=== PATIENT | male | born 1945 | race Caucasian/White ===

== ENCOUNTER 2018-12-11 16:10 | Emergency (ER) | payer MEDICARE, OTHER ==
[~2018-12-11] VITALS: Ht 188 cm; Wt 104.3 kg
[2018-12-11] MEDS ORDERED: NS IV 1000 ML 1,000 ML IV SCH (16:45)
--- NOTE | 2018-12-11 16:50 | ED Respiratory ---
General Chief Complaint: Respiratory Problems Stated Complaint: PAINFUL BREATHING,SOB Source: patient Exam Limitations: no limitations (DEWAYNE TOSCANO MD) History of Present Illness Date Seen by Provider: December 11, 2018 Time Seen by Provider: 16:44 Initial Comments This 73-year-old white male presents with a complaint of left upper quadrant abdominal pain with secondary painful inspiration. The patient has had the pain in a progressive fashion for the past several days. Patient denies associated fever, chills, change in his chronic congestion and cough, nausea, vomiting, diarrhea, dysuria, frequency, or flank pain. The patient describes the pain as sharp in nature and 9/10 in severity. It is made minimally worse with movement. Significant past medical history includes a heart transplant 15 years ago in [place]. The patient is followed by his primary care physician in the [place], [place]. (DEWAYNE TOSCANO MD) Allergies and Home Medications Allergies Uncoded Allergies: PENICILLIN (Adverse Reaction, Unknown, 12/11/18) SULFA (Adverse Reaction, Unknown, 12/11/18) Patient Home Medication List Home Medication List Reviewed: Yes (DEWAYNE TOSCANO MD) Review of Systems Review of Systems Constitutional: No chills, No fever, No weakness EENTM: no symptoms reported; No blurred vision Respiratory: see HPI; No hemoptysis; short of breath Cardiovascular: No chest pain, No palpitations Gastrointestinal: abdominal pain (LUQ); No constipation, No diarrhea, No nausea, No vomiting Genitourinary: No dysuria, No frequency Musculoskeletal: No back pain Skin: No change in color, No rash Psychiatric/Neurological: No Symptoms Reported Hematologic/Lymphatic: No Symptoms Reported Immunological/Allergic: no symptoms reported (DEWAYNE TOSCANO MD) Past Odbdgay-Wmxemj-Dsnohn Hx Past Med/Social Hx: Reviewed Nursing Past Med/Soc Hx (DEWAYNE TOSCANO MD) Physical Exam Vital Signs - First Documented 12/11/18 17:04 Temp 99.2 Pulse 88 Resp 18 B/P (MAP) 143/81 (101) Pulse Ox 94 O2 Delivery Room Air (VIRGIE SOSA MD) Capillary Refill : (DEWAYNE TOSCANO MD) Height: '" Weight: lbs. oz. kg; BMI Method: General Appearance: WD/WN, mild distress Eyes: Bilateral Eye Normal Inspection HEENT: normal ENT inspection Neck: full range of motion, supple Respiratory: chest non-tender, lungs clear, normal breath sounds, no respiratory distress Cardiovascular: regular rate, rhythm, no murmur Gastrointestinal: normal bowel sounds; No rebound; tenderness (mild in the left upper quadrant) Extremities: normal range of motion, normal inspection Neurologic/Psychiatric: no motor/sensory deficits, alert, normal mood/affect, oriented x 3 Skin: normal color, warm/dry; No rash (DEWAYNE TOSCNAO MD) Progress/Results/Core Measures Suspected Sepsis SIRS Temperature: Pulse: Respiratory Rate: Blood Pressure / Mean: (DEWAYNE TOSCANO MD) Results/Orders Lab Results Laboratory Tests Test 12/11/18 16:34 12/11/18 20:05 Range/Units White Blood Count 13.3 H 4.3-11.0 10^3/uL Red Blood Count 4.98 4.35-5.85 10^6/uL Hemoglobin 14.4 11.5-16.0 G/DL Hematocrit 45 35-52 % Mean Corpuscular Volume 90 80-99 FL Mean Corpuscular Hemoglobin 29 25-34 PG Mean Corpuscular Hemoglobin Concent 32 32-36 G/DL Red Cell Distribution Width 14.2 10.0-14.5 % Platelet Count 223 130-400 10^3/uL Mean Platelet Volume 9.5 7.4-10.4 FL Neutrophils (%) (Auto) 82 H 42-75 % Lymphocytes (%) (Auto) 6 L 12-44 % Monocytes (%) (Auto) 10 0-12 % Eosinophils (%) (Auto) 1 0-10 % Basophils (%) (Auto) 0 0-10 % Neutrophils # (Auto) 10.9 H 1.8-7.8 X 10^3 Lymphocytes # (Auto) 0.8 L 1.0-4.0 X 10^3 Monocytes # (Auto) 1.3 H 0.0-1.0 X 10^3 Eosinophils # (Auto) 0.2 0.0-0.3 10^3/uL Basophils # (Auto) 0.0 0.0-0.1 10^3/uL Neutrophils % (Manual) 82 % Lymphocytes % (Manual) 3 % Monocytes % (Manual) 8 % Eosinophils % (Manual) 3 % Basophils % (Manual) 1 % Band Neutrophils 3 % Blood Morphology Comment NORMAL Erythrocyte Sedimentation Rate 11 0-30 MM/HR D-Dimer 3.12 H 0.00-0.49 UG/ML Sodium Level 139 135-145 MMOL/L Potassium Level 3.8 3.6-5.0 MMOL/L Chloride Level 103 98-107 MMOL/L Carbon Dioxide Level 21 21-32 MMOL/L Anion Gap 15 H 5-14 MMOL/L Blood Urea Nitrogen 15 7-18 MG/DL Creatinine 1.29 0.60-1.30 MG/DL Estimat Glomerular Filtration Rate 41 BUN/Creatinine Ratio 12 Glucose Level 122 H 70-105 MG/DL Calcium Level 9.5 8.5-10.1 MG/DL Corrected Calcium 9.3 8.5-10.1 MG/DL Total Bilirubin 0.9 0.1-1.0 MG/DL Aspartate Amino Transf (AST/SGOT) 33 5-34 U/L Alanine Aminotransferase (ALT/SGPT) 6 0-55 U/L Alkaline Phosphatase 64 40-136 U/L Troponin T 37 H <=10 NG/L Total Protein 7.6 6.4-8.2 GM/DL Albumin 4.3 3.2-4.5 GM/DL Lipase 38 8-78 U/L Urine Color YELLOW Urine Clarity CLEAR Urine pH 6.5 5-9 Urine Specific [place] <1.005 1.016-1.022 Urine Protein TRACE NEGATIVE Urine Glucose (UA) NEGATIVE NEGATIVE Urine Ketones NEGATIVE NEGATIVE Urine Nitrite NEGATIVE NEGATIVE Urine Bilirubin NEGATIVE NEGATIVE Urine Urobilinogen 0.2 NORMAL MG/DL Urine Leukocyte Esterase NEGATIVE NEGATIVE Urine RBC (Auto) TRACE H NEGATIVE Urine RBC NONE /HPF Urine WBC 10-25 H /HPF Urine Squamous Epithelial Cells 0-2 /HPF Urine Crystals NONE /LPF Urine Bacteria FEW H /HPF Urine Casts NONE /LPF Urine Mucus NEGATIVE /LPF Urine Culture Indicated YES (VIRGIE SOSA MD) My Orders Orders - VIRGIE SOSA MD Ct Angio Chest W (12/11/18 19:15) Ed Iv/Invasive Line Start (12/11/18 19:29) Ns Iv 500 Ml (Sodium Chloride 0.9%) (12/11/18 19:29) (VIRGIE SOSA MD) Medications Given in ED Current Medications Medications Dose Ordered Sig/Mac Route Start Time Stop Time Status Last Admin Dose Admin Iohexol 100 ml ONCE ONCE IV 12/11/18 18:15 12/11/18 18:16 DC 12/11/18 19:48 75 ML Sodium Chloride 10 ml NEEDED PRN IV 12/11/18 18:15 12/11/18 19:48 10 ML Sodium Chloride 100 ml ONCE ONCE IV 12/11/18 18:15 12/11/18 18:16 DC 12/11/18 19:48 80 ML Sodium Chloride 500 ml @ 0 mls/hr Q0M ONCE IV 12/11/18 19:29 12/11/18 19:30 DC 12/11/18 19:35 0 MLS/HR (VIRGIE SOSA MD) Vital Signs/I&O 12/11/18 17:04 Temp 99.2 Pulse 88 Resp 18 B/P (MAP) 143/81 (101) Pulse Ox 94 O2 Delivery Room Air (VIRGIE SOSA MD) Vital Signs/I&O Capillary Refill : (DEWAYNE TOSCANO MD) Progress Note : Progress Note 1819: Report received from Dr. Toscano regarding current patient status. There are concerns for pulmonary embolism given elevated d-dimer. He has CT angiogram ordered. That is pending. 1834. Patient is quite agitated and states he does not want to stay. I did discuss with him at length my concerns regarding embolism which he states he didn't care about. I asked him about anything that we could do to assist him so that he would stay to receive the evaluation that we believe is indicated and he states he does not know about anything he does not care and just wants to go home. He was instructed return for any concerns. I did talk with him about my concerns that this could be life threatening her life ending problem and he states that he did not care. Patient left AGAINST MEDICAL ADVICE. 1899: Patient had apparently gone out to his car and thought about it and then ultimately walked back in and states that he actually would like to continue with his evaluation. We will go ahead and get CT angiogram as I do believe this is definitely indicated. Chart was never closed out so we will continue on this visit. Monitor patient. 2041: CT results noted and there is a possible clot in the left atrium. Patient may be on Plavix and is on aspirin but is not on blood thinner otherwise. I have paged Dr. Laughlin. Patient does see his cardiology group in [place] in a couple of weeks for recheck of his heart and states that he gets ultrasounds during that time. 2147: I have discussed the case with Dr. Laughlin as well as the cardiac transplant team at the [facility] in [place], [place]. In speaking with the [facility], I spoke with Dr. Yates. He is hasn't had to initiate anticoagulation based on CT scan of a transplanted heart as there is typically redundant tissue that is part of the procedure and CT is not very effective and feeling this. He would prefer EDDIE. We cannot get that here. I have discussed the case with a local detention attendant and he would also be challenging to do locally. Patient does not want to transfer and does not want to stay. He believes that he can follow-up with his cardiology group in [facility] pretty quickly. In discussing with [facility] detention attendant, they are not recommending I anticoagulation at this point and are recommending outpatient EDDIE. I have instructed the patient on this. He will continue his Plavix and aspirin as well as his other prescribed medications. Patient will call [facility] in the morning for rapid turnaround appointment so that he can keep that in that system which is what he prefers. At this point patient to be discharged. Discharged home with return precautions. Patient verbalize all discharge instructions and agreement with plan. (VIRGIE SOSA MD) Diagnostic Imaging Diagonstic Imaging: CT Plain Films/CT/US/NM/MRI: abdomen, pelvis Comments [facility]. [place], [place] NAME: EMILEE DAVIS [facility] REC#: [id number] PT STATUS: REG ER : 1945 PHYSICIAN: DEWAYNE TOSCANO MD ADMIT DATE: 12/11/18/ER FS Draft Date of Exam:12/11/18 CT ABDOMEN/PELVIS WO PROCEDURE: CT abdomen and pelvis without contrast. TECHNIQUE: Multiple contiguous axial images were obtained through the abdomen and pelvis without the use of intravenous contrast. Auto Exposure Controls were utilized during the CT exam to meet ALARA standards for radiation dose reduction. INDICATION: Left lower rib pain and shortness of air. COMPARISON: No prior studies are available for comparison. FINDINGS: The lung bases demonstrate numerous tiny calcified nodules in bilateral lower lobes consistent with prior granulomatous exposure. There is some pleural thickening along the right lateral chest wall. Lower ribs appear to be intact. No definite fracture is seen. There is spondylolisthesis of L5 on S1 with bilateral pars defects noted. The liver does demonstrate a small low density in the left lobe measuring 10 mm. This is too small to accurately characterize but may represent a cyst. The gallbladder is surgically absent. No biliary ductal dilatation is seen. The pancreas is unremarkable. The spleen is enlarged at 17.2 cm. No adrenal mass is detected. No renal calculi or hydronephrosis is detected. The aorta is heavily calcified but nonaneurysmal. The bowel loops appear to be nonobstructed. The appendix is unremarkable. There is no ascites. Bladder is unremarkable. Prostate is enlarged. IMPRESSION: 1. Numerous calcified nodules in bilateral lower lobes suggestive of prior granulomatous exposure. 2. Indeterminate low density in the left lobe of the liver. 3. Splenomegaly. 4. Prostatomegaly. 5. No acute feature is detected. Dictated on workstation # [id number] Dict: 12/11/181718 Trans: 12/11/181725 [id number] Interpreted by: BIANCA WEBB MD Electronically signed by: Cornelia Imaging: Xray Plain Films/CT/US/NM/MRI: chest Comments [facility], [place] NAME: EMILEE DAVIS [facility] REC#: [id number] PT STATUS: REG ER : 1945 PHYSICIAN: DEWAYNE TOSCANO MD ADMIT DATE: 12/11/18/ER FS Draft Date of Exam:12/11/18 CHEST PA/LAT (2 VIEW) CLINICAL INDICATION: Patient with shortness of air and left lower rib pain today. EXAM: Chest x-ray PA and lateral views. COMPARISONS: None. FINDINGS: Lungs/pleura: There are nodular and patchy areas of opacity seen throughout both lungs with both lung bases affected the most. These findings are concerning for lung infiltrate. Mild bibasilar atelectasis versus infiltrate. There is no pneumothorax. There is no pleural effusion. Mediastinum: Unremarkable. Pulmonary vasculature: Unremarkable. Heart: There is mild cardiomegaly. Again seen postop changes to the chest with sternotomy wires. Bones/extrathoracic soft tissue: There are hypertrophic spurs involving the thoracic spine. IMPRESSION: 1: There are multiple nodular and patchy areas of airspace opacity seen throughout both lungs which is most pronounced in both lung bases. These findings are concerning for infectious or inflammatory process/pneumonia. Follow up chest x-ray in 2 - 4 weeks is suggested to evaluate for interval resolution of this finding. 2: Cardiomegaly with no significant pulmonary vascular congestion. Dictated on workstation # [id number] Dict: 12/11/18 1718 Trans: 12/11/18 1725 [facility] [id number] Interpreted by: KENNETH WOLFE MD Electronically signed by: Nangoreagan Imaging: CT Plain Films/CT/US/NM/MRI: chest Comments [place], [place] NAME: EMILEE DAVIS [facility] REC#: [id number] PT STATUS: REG ER : 1945 PHYSICIAN: VIRGIE SOSA MD ADMIT DATE: 12/11/18/ER FS Draft Date of Exam:12/11/18 CT ANGIO CHEST W Indication: Patient with left lower rib pain today. Patient has history of heart transplant and history of skin cancer. Exam: CT angiogram of the chest performed with 75 cc Omnipaque 350 IV contrast. Coronal and oblique MIP images of the vasculature were created to better evaluate anatomy. Comparison: Chest x-ray dated 12/11/2018. CT scan of the abdomen and pelvis with contrast dated 12/11/2018. Findings: There are multiple dense calcified nodules seen throughout both lungs which is most pronounced in both lung bases which correlates to the nodular area seen on the comparison chest x-ray. These represent calcified granuloma. There is mild curvilinear opacities in both lung bases suspect to represent atelectasis and/or scarring. There is an area of thickening and calcification along the superior right major fissure which may represent scarring. There is no pleural effusion or pneumothorax. There are calcified granuloma in the mediastinal and hilar regions. There is no significant lymphadenopathy. There is no significant axillary lymphadenopathy. Thyroid gland shows no significant abnormality. There is limited contrast opacification of the lower lobe pulmonary arteries. There is also artifact obscuring the bilateral pulmonary arteries. There is no definite pulmonary emboli seen in the visualized portion of the vessels. There is a 12 mm rounded area within the left atrial appendage which may represent a clot. There is no thoracic aortic aneurysm or dissection. There is a cyst seen involving the left lobe of liver near the falciform ligament. The liver is otherwise unremarkable. Lobulated appearance of the spleen is noted with splenomegaly. The spleen measures 16.6 cm in craniocaudal dimension. There is also heterogeneous enhancement involving the spleen. Multiple renal cysts are noted. Remainder of the visualized upper abdominal structures show no significant abnormalities. There are degenerative spurs involving the thoracic spine. Impression: 1: There is a 12 mm rounded area in the left atrial appendage which may represent a blood clot. Repeat CT angiogram of the chest is suggested in 2-4 weeks to evaluate for resolution of this finding post treatment. If this finding persists, then a intra-atrial mass may be considered. 2: There is no gross evidence of pulmonary artery emboli as visualized. There is no thoracic aortic aneurysm or dissection. 3: There is bilateral lung atelectasis most pronounced in both lung bases. There is also diffuse calcified granulomas throughout both lungs. There is also associated calcified lymph nodes in the mediastinum and hilar regions. 4: Again seen splenomegaly. Dictated on workstation # [id number] Dict: 12/11/181958 Trans: 12/11/182013 [facility] [id number] Interpreted by: KENNETH WOLFE MD Electronically signed by: (VIRGIE SOSA MD) Departure Impression Primary Impression: Abdominal pain, left upper quadrant Additional Impression: Elevated d-dimer Disposition: 01 HOME, SELF-CARE Condition: Stable Departure-Patient Inst. Decision time for Depature: 18:35 (VIRGIE SOSA MD) Referrals: NO,LOCAL PHYSICIAN (PCP/Family) Primary Care Physician Patient Instructions: Acute Abdomen (Belly Pain), Adult (DC) Add. Discharge Instructions: All discharge instructions reviewed with patient and/or family. Voiced understanding. It is very important that you continue your medications including her Plavix and aspirin. There is a questionable abnormality noted on her CT scan that may be a blood clot in her heart. This may also be just redundant tissue from your transplant. You do need a transesophageal echocardiogram which is a specialized procedure. He may follow up locally or if it is your [facility] but you need to do this as soon as possible. Call the [facility] heart transplants team tomorrow morning for sooner appointment and setting up transesophageal echocardiogram. Return for worse pain, fever, vomiting, weakness, breathing problems, chest pain or other concerns as needed. DEWAYNE TOSCANO MD December 11, 2018 16:50 VIRGIE SOSA MD December 11, 2018 18:42
[2018-12-11 16:51] LABS: HEMATOCRIT 45 % (35-52); HEMOGLOBIN 14.4 G/DL (11.5-16.0); MEAN CORPUSCULAR HEMOGLOBIN 29 PG (25-34); MEAN CORPUSCULAR VOLUME 90 FL (80-99); WHITE BLOOD COUNT 13.3 10^3/uL (4.3-11.0)
[2018-12-11 16:52] LABS: BASOPHILS % (AUTO) 0 % (0-10); EOSINOPHILS # (AUTO) 0.2 10^3/uL (0.0-0.3); EOSINOPHILS % (AUTO) 1 % (0-10); LYMPHOCYTES # (AUTO) 0.8 X 10^3 (1.0-4.0); LYMPHOCYTES % (AUTO) 6 % (12-44); MEAN CORPUSCULAR HGB CONC 32 G/DL (32-36); MEAN PLATELET VOLUME 9.5 FL (7.4-10.4); MONOCYTES # (AUTO) 1.3 X 10^3 (0.0-1.0); MONOCYTES % (AUTO) 10 % (0-12); NEUTROPHILS # (AUTO) 10.9 X 10^3 (1.8-7.8); NEUTROPHILS % (AUTO) 82 % (42-75); PLATELET COUNT 223 10^3/uL (130-400); RED CELL DISTRIBUTION WIDTH 14.2 % (10.0-14.5)
[2018-12-11 17:09] LABS: BILIRUBIN,TOTAL 0.9 MG/DL (0.1-1.0); CALCIUM 9.5 MG/DL (8.5-10.1); CREATININE SERUM 1.29 MG/DL (0.60-1.30); POTASSIUM 3.8 MMOL/L (3.6-5.0)
[2018-12-11 17:10] LABS: ALBUMIN 4.3 GM/DL (3.2-4.5); TOTAL PROTEIN 7.6 GM/DL (6.4-8.2)
[2018-12-11 17:13] LABS: ERYTHROCYTE SEDIMENTATION RATE 11 MM/HR (0-30)
[2018-12-11 17:24] LABS: BAND NEUTROPHILS 3 %; BASOPHILS % (MANUAL) 1 %; EOSINOPHILS % (MANUAL) 3 %; LYMPHOCYTES % (MANUAL) 3 %; MONOCYTES % (MANUAL) 8 %; NEUTROPHILS % (MANUAL) 82 %; RBC MORPH NORMAL
--- NOTE | 2018-12-11 17:25 | Diagnostic Imaging Report ---
CLINICAL INDICATION: Patient with shortness of air and left lower rib pain today. EXAM: Chest x-ray PA and lateral views. COMPARISONS: None. FINDINGS: Lungs/pleura: There are nodular and patchy areas of opacity seen throughout both lungs with both lung bases affected the most. These findings are concerning for lung infiltrate. Mild bibasilar atelectasis versus infiltrate. There is no pneumothorax. There is no pleural effusion. Mediastinum: Unremarkable. Pulmonary vasculature: Unremarkable. Heart: There is mild cardiomegaly. Again seen postop changes to the chest with sternotomy wires. Bones/extrathoracic soft tissue: There are hypertrophic spurs involving the thoracic spine. IMPRESSION: 1: There are multiple nodular and patchy areas of airspace opacity seen throughout both lungs which is most pronounced in both lung bases. These findings are concerning for infectious or inflammatory process/pneumonia. Follow up chest x-ray in 2 - 4 weeks is suggested to evaluate for interval resolution of this finding. 2: Cardiomegaly with no significant pulmonary vascular congestion. Dictated by: Dictated on workstation # [id number]
--- NOTE | 2018-12-11 17:27 | Diagnostic Imaging Report ---
PROCEDURE: CT abdomen and pelvis without contrast. TECHNIQUE: Multiple contiguous axial images were obtained through the abdomen and pelvis without the use of intravenous contrast. Auto Exposure Controls were utilized during the CT exam to meet ALARA standards for radiation dose reduction. INDICATION: Left lower rib pain and shortness of air. COMPARISON: No prior studies are available for comparison. FINDINGS: The lung bases demonstrate numerous tiny calcified nodules in bilateral lower lobes consistent with prior granulomatous exposure. There is some pleural thickening along the right lateral chest wall. Lower ribs appear to be intact. No definite fracture is seen. There is spondylolisthesis of L5 on S1 with bilateral pars defects noted. The liver does demonstrate a small low density in the left lobe measuring 10 mm. This is too small to accurately characterize but may represent a cyst. The gallbladder is surgically absent. No biliary ductal dilatation is seen. The pancreas is unremarkable. The spleen is enlarged at 17.2 cm. No adrenal mass is detected. No renal calculi or hydronephrosis is detected. The aorta is heavily calcified but nonaneurysmal. The bowel loops appear to be nonobstructed. The appendix is unremarkable. There is no ascites. Bladder is unremarkable. Prostate is enlarged. IMPRESSION: 1. Numerous calcified nodules in bilateral lower lobes suggestive of prior granulomatous exposure. 2. Indeterminate low density in the left lobe of the liver. 3. Splenomegaly. 4. Prostatomegaly. 5. No acute feature is detected. Dictated by: Dictated on workstation # [id number]
[2018-12-11] MEDS ORDERED: CATHETER FLUSH 10 ML SYR IV PRN (18:15)
[2018-12-11] MEDS ORDERED: NS 100 ML (IVPB) BAG IV ONE (18:15)
[2018-12-11] MEDS ORDERED: IOHEXOL 350 MG/ML 100 ML (OMNIPAQUE 350) VIAL IV ONE (18:15)
[2018-12-11] MEDS ORDERED: HOLD METFORMIN - RECEIVED CONTRAST 20 ML VIAL IV SCH (18:15)
--- NOTE | 2018-12-11 18:39 | NUR ---
1820: Patient agitated and fidgeting, states he has PTSD. He also states he takes medication for anxiety, is getting nervous and wants to leave. Explained to patient that he may have a blood clot in his lungs and the physician would like to do a CTA of the chest. Patient stated he did not want the test done and did not want to stay any longer. Offered patient pain medication and medication for anxiety multiple times during his ED stay, patient refused each time medication was offered. Asked patient why he wanted to leave, patient states "I just have other things to do." Explained to patient that a blood clot in his lungs could be lethal, he verbalizes understanding of this risk and still wants to leave against medical advice. Patient refused to sign AMA paperwork and exited the ED to his vehicle in the parking lot. 183: Patient sitting in his vehicle in the parking lot. 184: Patient at registration desk, stating he is now willing to have the CTA chest. Patient back to room 6, Dr. Tubbs notified that patient is back and now wants to complete his ED evaluation and treatment.
--- NOTE | 2018-12-11 18:45 | NUR ---
PT. CAME BACK INTO THE ER AND IS WANTING TO GO AHEAD AND DO THE CT.
[2018-12-11] MEDS ORDERED: NS IV 500 ML 500 ML IV ONE (19:29)
--- NOTE | 2018-12-11 20:15 | Diagnostic Imaging Report ---
Indication: Patient with left lower rib pain today. Patient has history of heart transplant and history of skin cancer. Exam: CT angiogram of the chest performed with 75 cc Omnipaque 350 IV contrast. Coronal and oblique MIP images of the vasculature were created to better evaluate anatomy. Comparison: Chest x-ray dated 12/11/2018. CT scan of the abdomen and pelvis with contrast dated 12/11/2018. Findings: There are multiple dense calcified nodules seen throughout both lungs which is most pronounced in both lung bases which correlates to the nodular area seen on the comparison chest x-ray. These represent calcified granuloma. There is mild curvilinear opacities in both lung bases suspect to represent atelectasis and/or scarring. There is an area of thickening and calcification along the superior right major fissure which may represent scarring. There is no pleural effusion or pneumothorax. There are calcified granuloma in the mediastinal and hilar regions. There is no significant lymphadenopathy. There is no significant axillary lymphadenopathy. Thyroid gland shows no significant abnormality. There is limited contrast opacification of the lower lobe pulmonary arteries. There is also artifact obscuring the bilateral pulmonary arteries. There is no definite pulmonary emboli seen in the visualized portion of the vessels. There is a 12 mm rounded area within the left atrial appendage which may represent a clot. There is no thoracic aortic aneurysm or dissection. There is a cyst seen involving the left lobe of liver near the falciform ligament. The liver is otherwise unremarkable. Lobulated appearance of the spleen is noted with splenomegaly. The spleen measures 16.6 cm in craniocaudal dimension. There is also heterogeneous enhancement involving the spleen. Multiple renal cysts are noted. Remainder of the visualized upper abdominal structures show no significant abnormalities. There are degenerative spurs involving the thoracic spine. Impression: 1: There is a 12 mm rounded area in the left atrial appendage which may represent a blood clot. Repeat CT angiogram of the chest is suggested in 2-4 weeks to evaluate for resolution of this finding post treatment. If this finding persists, then a intra-atrial mass may be considered. 2: There is no gross evidence of pulmonary artery emboli as visualized. There is no thoracic aortic aneurysm or dissection. 3: There is bilateral lung atelectasis most pronounced in both lung bases. There is also diffuse calcified granulomas throughout both lungs. There is also associated calcified lymph nodes in the mediastinum and hilar regions. 4: Again seen splenomegaly. Dictated by: Dictated on workstation # [id number]
[2018-12-11 20:22] LABS: CLARITY,URINE CLEAR; COLOR,URINE YELLOW; PH,URINE 6.5 (5-9)
[2018-12-11 20:23] LABS: BACTERIA,URINE FEW /HPF; BILIRUBIN,URINE NEGATIVE (NEGATIVE); GLUCOSE, URINE (UA) NEGATIVE (NEGATIVE); KETONES,URINE NEGATIVE (NEGATIVE); LEUKOCYTE ESTERASE ,URINE NEGATIVE (NEGATIVE); NITRITE,URINE NEGATIVE (NEGATIVE); PROTEIN,URINE TRACE (NEGATIVE); SQUAMOUS EPITHELIAL CELL,UR 0-2 /HPF; UROBILINOGEN,URINE 0.2 MG/DL (NORMAL)
--- NOTE | 2018-12-11 20:32 | NUR ---
DOCTOR IAN IN TO SEE THE PATIENT.
[2018-12-11 22:03] VITALS: BP 143/81
== END 2018-12-11 21:59 | disposition home or self-care (01) ==
LOC: EDSEX 16:12 → ER FS 16:12
DX: R10.12 Left upper quadrant pain (principal); R79.1 Abnormal coagulation profile; Z88.0 Allergy status to penicillin; Z88.2 Allergy status to sulfonamides
CPT/HCPCS: 36415; 71046; 71275; 74176; 80053; 81000; 83690; 84484; 85007; 85027; 85379; 85652; 87088; 93005

== ENCOUNTER 2019-04-03 21:26 | Emergency (ER) | payer MEDICARE, OTHER ==
[~2019-04-03] VITALS: Ht 188 cm; Wt 84.0 kg
[2019-04-03] MEDS ORDERED: TETANUS,DIPTH,PERTUSS P/F (BOOSTRIX) 0.5 ML VIAL IM ONE (21:45)
--- NOTE | 2019-04-03 21:52 | ED Trauma-Multisystem ---
General Chief Complaint: Trauma-Non Activation Stated Complaint: ALL OVER BODY INJS Source of Information: Patient Exam Limitations: No Limitations History of Present Illness Date Seen by Provider: Apr 03, 2019 Time Seen by Provider: 21:37 Initial Comments The patient is a pleasant 74-year-old male fell off a trailer. He states that h is feet were approximately 3-4 feet off the ground. His primary complaint is left lateral neck/upper shoulder discomfort and swelling as well as a posterior scalp laceration, neck discomfort, and right distal femur lateral pain and swelling. He did not loose consciousness and denies vision change, focal weakness or focal numbness, chest pain or shortness of breath, abdominal or back pain, nausea or vomiting. He is alert and oriented 4, calm, and appears to be in no distress at this time. He is here with a friend who states that the patient is anticoagulated. They're in ago to the patient's home to mixing picker tender his medications. Occurred: Just Prior to Arrival Severity: Moderate Pain/Injury Location: Chest, Head, Lower Extremity Method of Injury: Fall Modifying Factors: Movement (MAKES IT WORSE) Loss of Consciousness: No Loss of Consciousness Allergies and Home Medications Allergies Uncoded Allergies: PENICILLIN (Adverse Reaction, Unknown, 12/11/18) SULFA (Adverse Reaction, Unknown, 12/11/18) Patient Home Medication List Home Medication List Reviewed: Yes Review of Systems Review of Systems Constitutional: no symptoms reported Eyes: No Symptoms Reported Ears: No Symptoms Reported Nose: No Symptoms Reported Mouth: No Symptoms Reported Throat: No Symptoms to Report Respiratory: no symptoms reported Cardiovascular: No Symptoms Reported Gastrointestinal: no symptoms reported Genitourinary: no symptoms reported Musculoskeletal: other (right thigh contusion) Skin: other (hematoma to left shoulder/right distal thight) Psychiatric/Neurological: No Symptoms Reported All Other Systems Reviewed Negative Unless Noted: Yes Past Xlswpfq-Tvcpka-Tqdkbf Hx Past Med/Social Hx: Reviewed Nursing Past Med/Soc Hx Patient Social History 2nd Hand Smoke Exposure: No Recent Foreign Travel: No Contact w/Someone Who Travel: No Recent Hopitalizations: No Seasonal Allergies Seasonal Allergies: No Past Medical History Surgeries: Yes (back surgery, heart transplant) Respiratory: No Cardiac: Yes (heart transplant) Genitourinary: No Gastrointestinal: No Musculoskeletal: No Endocrine: No HEENT: No Cancer: No Psychosocial: No Integumentary: No Physical Exam Vital Signs Vital Signs - First Documented 04/03/19 21:45 Temp 37.94375 Pulse 95 Resp 16 B/P (MAP) 154/75 (101) Pulse Ox 95 O2 Delivery Room Air Height, Weight, BMI Height: 6'2.00" Weight: 230lbs. oz. 104.727664gg; BMI Method:Stated General Appearance: No Apparent Distress, WD/WN Head: Contusions, Other (abrasion to posterior scalp) Eyes: Bilateral Eye Normal Inspection, Bilateral Eye PERRL, Bilateral Eye EOMI Ears, Nose, Throat: Hearing Grossly Normal, No Evidence of ENT Injury Neck: Supple, Other (midline cerv ttp C3-5, no step-off or deformity) Cardiovascular: Regular Rate, Rhythm, No Edema, No JVD, Other (scar from heart transplant (2005)) Respiratory: Chest Non Tender, Lungs Clear, Normal Breath Sounds, No Accessory Muscle Use, No Respiratory Distress Gastrointestinal: Normal Bowel Sounds, No Pulsatile Mass, Non Tender, Soft Back: Normal Inspection, No CVA Tenderness, No Vertebral Tenderness Extremity: Normal Capillary Refill, Non Tender Neurologic/Psychiatric: Alert, Oriented x3, No Motor/Sensory Deficits, Normal Mood/Affect Skin: Normal Color, Warm/Dry, Other (hematoma to right distal thigh, hematoma to left lateral neck/shoulder) [place] Coma Score Best Eye Response ([place]): (4) Open Spontaneously Best Verbal Response ([place]artha): (5) Oriented Best Motor Response ([place]): (6) Obeys Commands Progress/Results/Core Measures Results/Orders My Orders Orders - JING CARDONA DO Ct Head/Cervical Spine Wo (04/03/19 21:44) Chest 1 View Ap/Pa Only (04/03/19 21:44) Pelvis (Ap) (04/03/19 21:44) Femur 2 View Right (04/03/19 21:44) Clavicle Left (04/03/19 21:44) Dipht,Pertuss(Acell),Tet Adult (Boostrix (04/03/19 21:45) Medications Given in ED Current Medications Medications Dose Ordered Sig/Mac Route Start Time Stop Time Status Last Admin Dose Admin Diphtheria/ Tetanus/Acell Pertussis 0.5 ml ONCE ONCE IM 04/03/19 21:45 04/03/19 21:46 DC 04/03/19 21:55 0.5 ML Vital Signs/I&O 04/03/19 04/03/19 21:45 21:57 Temp 37.13674 37.8 Pulse 95 95 Resp 16 16 B/P (MAP) 154/75 (101) 154/75 (101) Pulse Ox 95 95 O2 Delivery Room Air Room Air Progress Progress Note : Progress Note @0011 - Patient and friends updated on imaging results which are unremarkable. The patient has no additional complaints and is asking to go home. Workup today fails reveal any emergent pathology. The patient is stable for discharge at this time. Advise close follow-up with his PCP in the next 1-2 days and return to the emergency Department immediately for new or worsening symptoms. Departure Impression Primary Impression: Hematoma of right lower extremity Additional Impressions: Traumatic hematoma of left shoulder Fall Scalp abrasion Disposition: HOME, SELF-CARE Condition: Stable Departure-Patient Inst. Decision time for Depature: 00:13 Referrals: NO,LOCAL PHYSICIAN (PCP/Family) Primary Care Physician Patient Instructions: Contusion (DC), Preventing Falls in the Older Adult, Concussion, Adult (DC) Add. Discharge Instructions: Follow-up with your doctor in the next 1-2 days. Return to the emergency Department immediately for new or worsening symptoms. Take the prescribed medication as directed for pain relief as needed. Scripts Hydrocodone/Acetaminophen ([place] 5-325 Tablet) 1 Each Tablet 1 TAB PO Q4-6HR for Pain MDD 10 TABS for 7 Days, #10 TAB Prov: JING CARDONA DO 04/04/19 JING CARDONA DO Apr 03, 2019 21:52
[2019-04-04] MEDS ORDERED: HYDR-4226 PO (00:14)
[2019-04-04 00:25] VITALS: BP 154/75
--- NOTE | 2019-04-04 05:39 | Diagnostic Imaging Report ---
EXAMINATION: Pelvis at 10 PM INDICATION: Fell, pelvic pain A single AP view was obtained. There are no prior studies available for comparison. There is no fracture, dislocation, or acute bony abnormality. There is at least moderate degenerative disease of the hip joints and mild degenerative disease of the sacroiliac joints. Fairly severe degenerative disc and bony disease of the visualized lower lumbar spine is also seen. Surgical clips are evident overlying each groin, particularly on the left. The soft tissues are otherwise unremarkable. IMPRESSION: There is no evidence for an acute bony abnormality. Dictated by: Dictated on workstation # [id number]
--- NOTE | 2019-04-04 05:45 | Diagnostic Imaging Report ---
EXAMINATION: Erect AP chest at 9:51 PM INDICATION: Trauma, chest pain The cardiomegaly and the sternotomy wires and surgical clips noted on the prior exam of 12/11/2018 are again evident and no different. The atelectasis/infiltrate involving the right lung base seen previously is less prominent on the study. There is still some increased density in this area. This finding could be chronic in nature. The lungs are otherwise generally clear. The right hilum is prominent but unchanged when compared to the prior exam. The mediastinum is not widened. The osseous structures are intact. IMPRESSION: There is cardiomegaly and evidence of prior cardiac surgery and chronic pulmonary disease involving the right lung base. There is no acute abnormality identified. Dictated by: Dictated on workstation # [id number]
--- NOTE | 2019-04-04 05:48 | Diagnostic Imaging Report ---
EXAMINATION: Left clavicle at 9:52 pm INDICATION: Trauma Two views were obtained. There is no fracture or acute bony abnormality identified. There is deformity of the distal left clavicle. This may be a sequela of prior trauma. There is also widening of the acromioclavicular space and this suggests that there has been a prior acromioclavicular separation. This finding was also present on the prior chest exam of 12/11/2018. The soft tissues are unremarkable. IMPRESSION: There is no evidence for an acute bony abnormality. Dictated by: Dictated on workstation # [id number]
--- NOTE | 2019-04-04 05:51 | Diagnostic Imaging Report ---
EXAMINATION: Right femur at 1001 PM INDICATION: Trauma AP and lateral views were obtained. There is no fracture, dislocation or acute bony abnormality evident. There is at least moderate degenerative disease of the hip joint. There is also tricompartmental narrowing of the knee joint with chondrocalcinosis of the lateral meniscus. Vascular calcifications are evident in the soft tissues and there are surgical clips overlying the right groin. IMPRESSION: There is no evidence for an acute bony abnormality. Dictated by: Dictated on workstation # [id number]
--- NOTE | 2019-04-04 07:51 | Diagnostic Imaging Report ---
PROCEDURE: CT head and CT cervical spine without contrast. TECHNIQUE: Multiple contiguous axial images were obtained through the brain and cervical spine without the use of intravenous contrast. Sagittal and coronal reformations through the cervical spine were then performed. Auto Exposure Controls were utilized during the CT exam to meet ALARA standards for radiation dose reduction. INDICATION: Fell, head and neck pain. There are no prior CT examinations available for comparison. CT head: There is no mass, shift of the midline or hemorrhage to suggest an acute intracranial abnormality. There is a prominent area of diminished density involving the right parietal occipital lobe. Most likely, this is due to encephalomalacia. There is also considerable dilatation of the occipital horn of the right lateral ventricle due to the volume loss involving the right parieto-occipital lobe. The ventricles are otherwise unremarkable. Much smaller patchy areas of diminished density are seen in the periventricular white matter bilaterally. These findings are nonspecific but may be related to encephalomalacia from microvascular ischemia. The bone windows show no evidence for a fracture or for a destructive lesion. There is soft tissue edema in the scalp overlying the left parietal occipital bone near the vertex of the skull. The orbits are symmetrical and within normal limits. The sinuses, where visualized, are clear. IMPRESSION: 1. There is soft tissue edema involving the scalp along the posterior aspect of the left parietal bone. There is no evidence for a skull fracture or for acute intracranial abnormality. 2. There is a prominent area of encephalomalacia involving the right parietal occipital lobe. Most likely, this is a sequela of a prior infarct. If previous exams are available, they would be helpful for comparison. CT cervical spine: The reconstructed sagittal images show straightening of the cervical spine. This may be secondary to muscle spasm and/or positioning. There is also severe degenerative disc and bony disease at C5-6. There is near complete obliteration of the disc space at this level as well as bony overgrowth. Similar but less striking changes are also seen at C6-7 and C4-5. There is spinal stenosis at all 3 of these levels and there is narrowing of the neural foramen on the left at C5-6 and C6-7 and on the right at C4-5. There is also moderate central stenosis at the C3-4 level with neural foraminal narrowing on the right. There is no fracture or acute bony abnormality identified. There is no sign of paraspinal mass. However, there is considerable distortion of the subcutaneous fat along the lower neck on the left. This area is not visualized in its entirety. CT of the neck and chest would be recommended for further study. The lung apices are clear. The axial images do show a metallic band extending along the periphery of the posterior aspect of the neck. This is most likely A metal chain extraneous to the patient. IMPRESSION: 1. There is no evidence for an acute bony abnormality. 2. There is edema/inflammation of the subcutaneous fat along the lower neck on the left. This could be secondary to hemorrhage. CT of the neck and chest would be recommended for further evaluation. Dictated by: Dictated on workstation # [id number]
== END 2019-04-04 00:17 | disposition home or self-care (01) ==
LOC: EDUNIT# 21:26 → ER FS 21:27
DX: S80.11XA Contusion of right lower leg, initial encounter (principal); S40.012A Contusion of left shoulder, initial encounter; S00.01XA Abrasion of scalp, initial encounter; R40.2142 Coma scale, eyes open, spontaneous, at arrival to emergency department; R40.2252 Coma scale, best verbal response, oriented, at arrival to emergency department; R40.2362 Coma scale, best motor response, obeys commands, at arrival to emergency department; Z88.0 Allergy status to penicillin; Z88.2 Allergy status to sulfonamides; Z94.1 Heart transplant status; W17.89XA Other fall from one level to another, initial encounter
CPT/HCPCS: 70450; 71045; 72125; 72170; 73000; 73552; 90471; 90715

== ENCOUNTER 2019-04-04 12:38 | Emergency (ER) | payer OTHER ==
[~2019-04-04] VITALS: Ht 188 cm; Wt 100.0 kg
[~2019-04-04 12:38] MED LIST: HYDR-4226 PO
[2019-04-04] MEDS ORDERED: LIDOCAINE 1% INJ 20 ML 20 ML VIAL ONE (13:24)
--- NOTE | 2019-04-04 13:36 | ED Head Injury ---
General Chief Complaint: Head/Cervical Problems Stated Complaint: HEAD INJ Nursing Triage Note: PT FELL AFTER TRIPPING ON THE THRESHOLD OF THE DOORWAY AND HIT HIS HEAD ON THE FLOOR. NO LOSS OF CONSCIOUSNESS. LACERATION ABOVE THE LEFT EYEBROW. BLEEDING CONTROLLED. Source: patient, family Exam Limitations: no limitations History of Present Illness Date Seen by Provider: Apr 04, 2019 Time Seen by Provider: 13:31 Initial Comments The patient is a 74-year-old white male who was here yesterday after falling off of a flatbed trailer and injuring himself. At that time he suffered a left parieto-occipital area laceration in the scalp as well as a rather severe contusion to the right knee. Today he had gotten up and gone outside. When coming back and he tripped over the threshold and fell forward suffering a laceration over his left brow. There was no loss of consciousness. His digital account executive states that he has been having some apparent balance issues lately. Occurred: just prior to arrival Location: frontal Method of Injury: direct blow, fell Loss of Consciousness: no loss of consciousness Allergies and Home Medications Allergies Uncoded Allergies: PENICILLIN (Adverse Reaction, Unknown, 12/11/18) SULFA (Adverse Reaction, Unknown, 12/11/18) Home Medications Hydrocodone/Acetaminophen 1 Each Tablet, 1 TAB PO Q4-6HR Prescribed by: JING CARDONA on 04/04/19 0014 Patient Home Medication List Home Medication List Reviewed: Yes Review of Systems Review of Systems Constitutional: see HPI Eyes: No Symptoms Reported Ears, Nose, Mouth, Throat: no symptoms reported Respiratory: no symptoms reported Cardiovascular: no symptoms reported Gastrointestinal: no symptoms reported Genitourinary: no symptoms reported Musculoskeletal: see HPI Skin: see HPI Psychiatric/Neurological: No Symptoms Reported Hematologic/Lymphatic: No Symptoms Reported Past Occskum-Dwqdey-Rpiypp Hx Patient Social History Alcohol Use: Denies Use Recreational Drug Use: No Smoking Status: Unknown if Ever Smoked 2nd Hand Smoke Exposure: Yes Recent Foreign Travel: No Contact w/Someone Who Travel: No Recent Infectious Disease Expo: No Recent Hopitalizations: No Physical Abuse: No Sexual Abuse: No Mistreated: No Fear: No Seasonal Allergies Seasonal Allergies: No Past Medical History Surgeries: Yes (back surgery, heart transplant) Respiratory: No Cardiac: Yes (heart transplant) Genitourinary: No Gastrointestinal: No Musculoskeletal: No Endocrine: No HEENT: No Cancer: No Psychosocial: No Integumentary: No Physical Exam Vital Signs Vital Signs - First Documented 04/04/19 13:01 Temp 36.6 Pulse 72 Resp 18 B/P (MAP) 112/67 (82) Pulse Ox 98 O2 Delivery Room Air Capillary Refill : Less Than 3 Seconds Height, Weight, BMI Height: 6'2.00" Weight: 230lbs. oz. 104.636000yu; 28.00 BMI Method:Stated General Appearance: no apparent distress, other (rather reticent) HEENT: normal ENT inspection Neck: full range of motion Cardiovascular: regular rate, rhythm Respiratory: chest non-tender, lungs clear, normal breath sounds, no respiratory distress, no accessory muscle use Gastrointestinal: normal bowel sounds, non tender Psychiatric: alert An area of ecchymosis is noted at the left base of the neck. This is consistent with migration from his accident in the left parietal area yesterday. The right knee is greatly swollen particularly on the lateral aspect and there is some reddish discoloration. A minor abrasion is noted at the left patella. There is a 3-4 cm horizontally placed laceration above the left brow. [place] Coma Score Best Eye Response: (4) Open Spontaneously Best Verbal Response: (5) Oriented Best Motor Response: (6) Obeys Commands Procedures/Interventions Wound Location: Face Wound's Depth, Shape: linear (3 cm) Wound Explored: clean Betadine Prep?: Yes Anesthesia: 1% Lidocaine Volume Anesthetic (ccs): 3 Wound Debrided: minimal Suture Size: 5-0 F5-2 Number of Sutures: 5 Sterile Dressing Applied?: Yes Progress/Results/Core Measures Results/Orders My Orders Orders - KIRSTIE DELGADO MD Lidocaine 1% Inj 20 Ml (Xylocaine 1% Inj (04/04/19 13:24) Ct Head Wo (04/04/19 15:31) Vital Signs/I&O 04/04/19 13:01 Temp 36.6 Pulse 72 Resp 18 B/P (MAP) 112/67 (82) Pulse Ox 98 O2 Delivery Room Air Blood Pressure Mean: 82 Departure Communication (Admissions) CT of head negative Impression Primary Impression: fall at home Disposition: 01 HOME, SELF-CARE Condition: Improved Departure-Patient Inst. Referrals: MAXIMINO FIELDS MD (PCP/Family) Primary Care Physician Add. Discharge Instructions: All discharge instructions reviewed with patient and/or family. Voiced understanding. Change dressings as needed for bleeding through or daily 3. After third day may leave open to air. Return in 7 days for suture removal. Return to ER if loss of alertness or increasing incoordination. KIRSTIE DELGDAO MD Apr 04, 2019 13:36
[2019-04-04] MEDS: LIDOCAINE 1% INJ 20 ML 20 ML VIAL INJ ONE ×2 (15:33→16:27)
--- NOTE | 2019-04-04 15:53 | Diagnostic Imaging Report ---
INDICATION: Fall with injury to head. Noncontrast brain CT is performed and compared to yesterday. There are diffuse atrophic changes. There is an old area of encephalomalacia or infarct in the right parieto-occipital lobe. There is no acute hemorrhage or subdural or epidural collection. Ventricles are normal in size. Calvarial windows appear unremarkable. IMPRESSION: Atrophic changes with chronic ischemic changes in deep white matter. Old area of encephalomalacia versus old infarct in the right parieto-occipital region. Dictated by: Dictated on workstation # [id number]
[2019-04-04 16:17] VITALS: BP 116/72
== END 2019-04-04 16:17 | disposition home or self-care (01) ==
LOC: EDUNIT# 12:38 → ER FS 12:40
DX: S09.90XA Unspecified injury of head, initial encounter (principal); S01.112A Laceration without foreign body of left eyelid and periocular area, initial encounter; S01.01XA Laceration without foreign body of scalp, initial encounter; S80.01XA Contusion of right knee, initial encounter; S10.93XA Contusion of unspecified part of neck, initial encounter; R40.2142 Coma scale, eyes open, spontaneous, at arrival to emergency department; R40.2252 Coma scale, best verbal response, oriented, at arrival to emergency department; R40.2362 Coma scale, best motor response, obeys commands, at arrival to emergency department; Z88.0 Allergy status to penicillin; Z88.2 Allergy status to sulfonamides; Z77.22 Contact with and (suspected) exposure to environmental tobacco smoke (acute) (chronic); Z94.1 Heart transplant status; W01.198A Fall on same level from slipping, tripping and stumbling with subsequent striking against other object, initial encounter; Y92.009 Unspecified place in unspecified non-institutional (private) residence as the place of occurrence of the external cause
CPT/HCPCS: 12011; 70450

== ENCOUNTER → 2019-04-08 | Outpatient (CLI) | payer OTHER ==
--- NOTE | 2019-04-08 16:42 | Diagnostic Imaging Report ---
INDICATION: Frequent falls, left elbow pain. AP and lateral views of the left elbow are obtained. No fracture or acute bony abnormality is seen. There is chronic change with prominent osteophytes off the olecranon process of the proximal ulna and moderate joint space narrowing. IMPRESSION: Degenerative findings of left elbow with no acute abnormality. Dictated by: Dictated on workstation # [id number]
--- NOTE | 2019-04-08 16:51 | Diagnostic Imaging Report ---
CT NECK/CHEST WO TECHNIQUE: Noncontrast CT imaging of the neck and chest was performed. Sagittal and coronal 2-D reformats are created. INDICATION: Fall, left supraclavicular swelling. COMPARISON: CT cervical spine of 04/03/2019. CT chest of 12/11/2018. FINDINGS: CT neck: Large hyperdense hematoma in the left supraclavicular region measures 5.4 x 3.5 x 4.5 cm. There are surrounding stranding and/or contusion present. Assessment for active hemorrhage is not possible without contrast. The airway remains widely patent. No retropharyngeal or paravertebral fluid collection and no features of discitis-osteomyelitis. No acute fracture or traumatic malalignment in the cervical spine. Stable arthrodesis of C5-C6. There remains moderate to severe spinal stenosis at this level due to posterior osteophytes. CT chest: Visualized thyroid is normal. No supraclavicular or axillary lymphadenopathy. No mediastinal, hilar or juxtaphrenic lymphadenopathy. Heart is enlarged without pericardial effusion. 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 Normal caliber thoracic aorta. No pleural effusion or pneumothorax. Numerous calcified granulomas throughout the lungs are unchanged and compatible with old granulomatous infection. No pulmonary contusion. No mediastinal hemorrhage. No acute fracture of the clavicles. Sternum is intact. No acute rib fracture. IMPRESSION: 1. Large hematoma located in the left supraclavicular region has increased in size since CT cervical spine of 04/03/2019. This exam is unable to evaluate for active hemorrhage due to lack of IV contrast. 2. No acute fracture of the clavicle, cervical spine or ribs. Dictated by: Dictated on workstation # [id number]
== END ==
LOC: RAD FS 16:02
PROVIDERS: ATTEND Family Medicine
DX: S10.83XA Contusion of other specified part of neck, initial encounter (principal); M19.022 Primary osteoarthritis, left elbow
CPT/HCPCS: 70490; 71250; 73070

== ENCOUNTER → 2019-04-12 | Outpatient (CLI) | payer OTHER ==
[~2019-04-12] MED LIST changes: +TRAM50TA2 PO
[2019-04-12 08:45] LABS: RED CELL DISTRIBUTION WIDTH 16.5 % (10.0-14.5); WHITE BLOOD COUNT 9.3 10^3/uL (4.3-11.0)
[2019-04-12 08:46] LABS: MEAN PLATELET VOLUME 8.8 FL (7.4-10.4)
[2019-04-12 08:57] LABS: CLARITY,URINE CLEAR; COLOR,URINE DARK YELLOW; GLUCOSE, URINE (UA) NEGATIVE (NEGATIVE); KETONES,URINE NEGATIVE (NEGATIVE); PH,URINE 6.5 (5-9); PROTEIN,URINE 1+ (NEGATIVE)
[2019-04-12 08:58] LABS: BACTERIA,URINE NEGATIVE /HPF; BILIRUBIN,URINE 1+ (NEGATIVE); LEUKOCYTE ESTERASE ,URINE TRACE (NEGATIVE); NITRITE,URINE NEGATIVE (NEGATIVE); SQUAMOUS EPITHELIAL CELL,UR 0-2 /HPF; UROBILINOGEN,URINE 0.2 MG/DL (NORMAL); WBC,URINE 0-2 /HPF
[2019-04-12 09:08] LABS: ALANINE AMINOTRANSFERASE 5 U/L (0-55); ALBUMIN 3.9 GM/DL (3.2-4.5); ALKALINE PHOSPHATASE 73 U/L (40-136); BILIRUBIN,TOTAL 1.8 MG/DL (0.1-1.0); BUN/CREATININE RATIO 9; CALCIUM 9.2 MG/DL (8.5-10.1); CARBON DIOXIDE 21 MMOL/L (21-32); CHLORIDE 100 MMOL/L (98-107); CREATININE SERUM 1.18 MG/DL (0.60-1.30); GFR ESTIMATED > 60; GLUCOSE 110 MG/DL (70-105); POTASSIUM 3.5 MMOL/L (3.6-5.0); SODIUM 138 MMOL/L (135-145); TOTAL PROTEIN 7.4 GM/DL (6.4-8.2)
--- NOTE | 2019-04-12 13:32 | Diagnostic Imaging Report ---
INDICATION: Back pain, status post fall. AP and lateral views of the lumbar spine are obtained. The lumbar vertebrae are normal in height and alignment. There are prominent osteophytes anteriorly from L2 through L5. There is no significant disc space narrowing. There is anterolisthesis of L5 on S1 by about 1 cm. This finding appears unchanged compared to a prior abdominal CT of 12/11/2018. IMPRESSION: There is spondylolysis at L5 with grade 1-2 spondylolisthesis. This finding was also present on prior abdominal CT of 12/11/2018. There are prominent osteophytes from L2 through L5. There is no acute compression deformity. Dictated by: Dictated on workstation # [id number]
== END ==
LOC: RAD FS 08:06
PROVIDERS: ATTEND Family Medicine
DX: M47.816 Spondylosis without myelopathy or radiculopathy, lumbar region (principal); M79.89 Other specified soft tissue disorders; M43.16 Spondylolisthesis, lumbar region
CPT/HCPCS: 36415; 72100; 80053; 81000; 85027; 85610

== ENCOUNTER 2019-04-16 18:26 | Emergency (ER) | payer OTHER ==
[~2019-04-16] VITALS: Ht 187.7 cm; Wt 72.7 kg
[~2019-04-16 18:26] MED LIST changes: -TRAM50TA2 PO
--- NOTE | 2019-04-16 19:11 | ED General ---
General Stated Complaint: LT SHOULDER MASS Source of Information: Patient History of Present Illness Date Seen by Provider: Apr 16, 2019 Time Seen by Provider: 19:11 Initial Comments 74-year-old male presenting with complaints of pain and swelling to the left side of his neck. He had a fall earlier this month and had swelling and bruising from the fall. He had no new falls since the injury. The swelling was evaluated by CT on 08 April and found to be hematoma. He feels that the area of the hematoma has gotten larger since the last scan. He is having a lot of pain in that area and does not have any medication to take for the pain. He had called the clinic and requested to have something done but his primary provider was not available so he reports the nurse from the clinic told him to come back to the ED. He denies any fever or chills. He also has stitches on his left forehead that have been in place since the original fall. Allergies and Home Medications Allergies Uncoded Allergies: PENICILLIN (Adverse Reaction, Unknown, 12/11/18) SULFA (Adverse Reaction, Unknown, 12/11/18) Home Medications Hydrocodone/Acetaminophen 1 Each Tablet, 1 TAB PO Q4-6HR Prescribed by: JING CARDONA on 04/04/19 0014 Tramadol HCl 50 Mg Tablet, 50 MG PO Q6H PRN for PAIN Prescribed by: PRABHA DOLAN on 04/16/19 7344 Patient Home Medication List Home Medication List Reviewed: Yes Review of Systems Review of Systems Constitutional: No chills, No fever EENTM: other (neck pain to left side of neck) Respiratory: No cough, No hemoptysis Cardiovascular: No chest pain Gastrointestinal: No abdominal pain, No nausea, No vomiting Genitourinary: no symptoms reported Musculoskeletal: see HPI Skin: other (bruising to right leg with hematoma and hematoma to left neck/supraclavicular area) Past Nyrzdmn-Jbytjd-Yilqde Hx Past Med/Social Hx: Reviewed Nursing Past Med/Soc Hx Patient Social History 2nd Hand Smoke Exposure: Yes Recent Foreign Travel: No Contact w/Someone Who Travel: No Recent Hopitalizations: No Seasonal Allergies Seasonal Allergies: No Past Medical History Surgeries: Yes (back surgery, heart transplant) Respiratory: No Cardiac: Yes (heart transplant) Genitourinary: No Gastrointestinal: No Musculoskeletal: No Endocrine: No HEENT: No Cancer: No Psychosocial: No Integumentary: No Physical Exam Vital Signs Vital Signs - First Documented 04/16/19 04/16/19 19:10 21:47 Temp 37.2 Pulse 99 Resp 18 B/P (MAP) 131/81 (98) Pulse Ox 98 O2 Delivery Room Air Capillary Refill : Height, Weight, BMI Height: 6'2.00" Weight: 230lbs. oz. 104.767123vk; 28.00 BMI Method:Stated General Appearance: No Apparent Distress, WD/WN HEENT: PERRL/EOMI, Normal ENT Inspection, Pharynx Normal Neck: Full Range of Motion, Supple, Other (tender swollen area to left supraclavicular area and side of left neck) Respiratory: Chest Non Tender, Lungs Clear, Normal Breath Sounds Cardiovascular: Regular Rate, Rhythm, Normal Peripheral Pulses Gastrointestinal: Normal Bowel Sounds, No Pulsatile Mass, Non Tender, Soft Extremity: Normal Capillary Refill, Normal Range of Motion, Non Tender Neurologic/Psychiatric: Alert, Oriented x3, No Motor/Sensory Deficits, Normal Mood/Affect, gas main fitter II-XII Norm as Tested Skin: Warm/Dry, Ecchymosis (bruising to right LE and Left UE and left supraclavicular area), Other (stitches in place on left forehead with healed wound. no sign of infection) Procedures/Interventions Suture Size: 5-0 F5-2 Progress/Results/Core Measures Suspected Sepsis SIRS Temperature: Pulse: Respiratory Rate: Blood Pressure / Mean: Results/Orders My Orders Orders - PRABHA DOLAN MD Iv/Invasive Line Insertion .IV start (04/16/19 19:21) Ct Neck (Soft Tissue) W (04/16/19 19:21) Staple/Suture Removal (04/16/19 19:21) Iohexol Injection (Omnipaque 350 Mg/Ml 1 (04/16/19 20:00) Sodium Chloride Flush (Catheter Flush Sy (04/16/19 20:00) Ns (Ivpb) (Sodium Chloride 0.9% Ivpb Bag (04/16/19 20:00) Rx-Tramadol Hcl (Rx-Ultram) (04/16/19 21:45) Medications Given in ED Current Medications Medications Dose Ordered Sig/Mac Route Start Time Stop Time Status Last Admin Dose Admin Iohexol 75 ml ONCE ONCE IV 04/16/19 20:00 04/16/19 20:01 DC 04/16/19 20:11 75 ML Sodium Chloride 10 ml NEEDED PRN IV 04/16/19 20:00 04/16/19 21:47 DC 04/16/19 20:11 10 ML Sodium Chloride 100 ml ONCE ONCE IV 04/16/19 20:00 04/16/19 20:01 DC 04/16/19 20:11 100 ML Vital Signs/I&O 04/16/19 04/16/19 19:10 21:47 Temp 37.2 Pulse 99 86 Resp 18 16 B/P (MAP) 131/81 (98) 146/77 Pulse Ox 98 O2 Delivery Room Air Room Air Capillary Refill : Progress Note #1: Progress Note Check CT soft tissue neck since he feels that the hematoma on his left neck/supraclavicular area is larger than when he had CT last week. He had labs on 04/12 so Cr and GFR were stable and clear for him to get contrast to ensure that he did not have new or active bleeding into the hematoma. Progress Note #2: Progress Note CT soft tissue neck does not show any active or new bleeding. Measurement on this it is smaller than what he had last week. Encouraged to try heat to the area of the hematoma to help with dissolve within reabsorb. Check back with the clinic and if he has further concerns they may refer to surgeon to see the hematoma could be drained or surgically addressed. Diagnostic Imaging Diagonstic Imaging: CT Plain Films/CT/US/NM/MRI: other (soft tissue neck) Comments NAME: EMILEE DAVIS [facility] REC#: [id number] PT STATUS: REG ER : 1945 PHYSICIAN: PRABHA DOLAN MD ADMIT DATE: 04/16/19/ER FS Signed Date of Exam:04/16/19 CT NECK (SOFT TISSUE) W PROCEDURE: CT neck soft tissue with contrast. TECHNIQUE: Multiple contiguous axial images were obtained through the neck after the administration of contrast. Auto Exposure Controls were utilized during the CT exam to meet ALARA standards for radiation dose reduction. INDICATION: Neck hematoma COMPARISON: 04/08/2019 FINDINGS: Mixed density mass in the left neck region. Overall the size of the hematoma is smaller measuring 37 x 49 mm. Previously this was measured at 35 x 54 mm. There is no associated active hemorrhage or mass effect on the the airway. There is no lymphadenopathy. Osseous structures are stable. Vascular structures are age-appropriate. IMPRESSION: Slightly smaller hematoma in the left supraclavicular region. There is no associated active hemorrhage. Dictated by: Dictated on workstation # [id number] Dict: 04/16/192028 Trans: 04/16/192054 [facility] [id number] Interpreted by: LESLY GORMAN Electronically signed by: LESLY GORMAN 04/16/192054 Departure Impression Primary Impression: Hematoma of neck Qualified Codes: S10.93XA - Contusion of unspecified part of neck, initial encounter Additional Impression: Encounter for removal of sutures Disposition: HOME, SELF-CARE Condition: Stable Departure-Patient Inst. Decision time for Depature: 21:37 Referrals: MAXIMINO HERNÁNDEZ MD (PCP/Family) Primary Care Physician Patient Instructions: HEMATOMA, Stitches Removal Add. Discharge Instructions: Try applying heat to the hematoma for 10-15 minutes every few hours to help the area dissolve and heal. Follow up with Dr. Hernández through the clinic for continued concerns. If you are not having improvement then you may need to be referred to a surgeon to see if they will help remove the hematoma. Scripts Tramadol HCl (Tramadol HCl) 50 Mg Tablet 50 MG PO Q6H PRN for PAIN for 3 Days, #12 TAB 0 Refills Prov: PRABHA DOLAN MD 04/16/19 PRABHA DOLAN MD Apr 16, 2019 19:11
[2019-04-16] MEDS ORDERED: NS 100 ML (IVPB) BAG IV ONE (20:00)
[2019-04-16] MEDS ORDERED: CATHETER FLUSH 10 ML SYR IV PRN (20:00)
[2019-04-16] MEDS ORDERED: IOHEXOL 350 MG/ML 100 ML (OMNIPAQUE 350) VIAL IV ONE (20:00)
--- NOTE | 2019-04-16 20:41 | Diagnostic Imaging Report ---
PROCEDURE: CT neck soft tissue with contrast. TECHNIQUE: Multiple contiguous axial images were obtained through the neck after the administration of contrast. Auto Exposure Controls were utilized during the CT exam to meet ALARA standards for radiation dose reduction. INDICATION: Neck hematoma COMPARISON: 04/08/2019 FINDINGS: Mixed density mass in the left neck region. Overall the size of the hematoma is smaller measuring 37 x 49 mm. Previously this was measured at 35 x 54 mm. There is no associated active hemorrhage or mass effect on the the airway. There is no lymphadenopathy. Osseous structures are stable. Vascular structures are age-appropriate. IMPRESSION: Slightly smaller hematoma in the left supraclavicular region. There is no associated active hemorrhage. Dictated by: Dictated on workstation # [id number]
[2019-04-16] MEDS ORDERED: TRAM50TA2 PO (21:37)
[2019-04-16] MEDS ORDERED: RX-TRAMADOL 50 MG (ULTRAM) TAB PPK#4 PO PRN (21:45)
[2019-04-16 21:47] VITALS: BP 146/77
== END 2019-04-16 21:47 | disposition home or self-care (01) ==
LOC: EDUNIT# 18:26 → ER FS 18:28
DX: S10.93XA Contusion of unspecified part of neck, initial encounter (principal); S80.11XA Contusion of right lower leg, initial encounter; S40.022A Contusion of left upper arm, initial encounter; S40.012A Contusion of left shoulder, initial encounter; S01.81XD Laceration without foreign body of other part of head, subsequent encounter; Z88.0 Allergy status to penicillin; Z88.2 Allergy status to sulfonamides; Z77.22 Contact with and (suspected) exposure to environmental tobacco smoke (acute) (chronic); Z94.1 Heart transplant status; W19.XXXD Unspecified fall, subsequent encounter
CPT/HCPCS: 70491

== ENCOUNTER → 2019-06-11 | Outpatient (CLI) | payer OTHER ==
[~2019-06-11] MED LIST changes: +TRAM50TA2 PO
--- NOTE | 2019-06-11 16:42 | Diagnostic Imaging Report ---
INDICATION: Low back pain. TIME OF EXAM; 3:52 p.m. COMPARISON: Comparison is made with prior radiographs from 04/12/2019. FINDINGS: Anterolisthesis of L5 on S1 is again noted. Vertebral body heights are maintained. No acute compression fracture is seen. Generalized degenerative disc disease with variable disc space narrowing and marginal spurring is noted. Aorta remains heavily calcified. IMPRESSION: Stable lumbar spine radiographs when compared with examination two months earlier. No acute bony abnormality is detected. Dictated by: Dictated on workstation # [id number]
== END ==
LOC: RAD FS 15:45
PROVIDERS: ATTEND Family Medicine
DX: M54.5 Low back pain (principal)
CPT/HCPCS: 72100

== ENCOUNTER 2019-06-15 17:52 | Emergency (ER) | payer OTHER ==
[~2019-06-15] VITALS: Ht 183.2 cm; Wt 93.4 kg
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
[2019-06-15] MEDS ORDERED: CYCL10TA9 PO (18:52)
[2019-06-15] MEDS ORDERED: RX-CYCLOBENZAPRINE 10 MG (FLEXERIL) TAB PPK#3 PO STA (19:03)
[2019-06-15 19:14] VITALS: BP 128/83
== END 2019-06-15 19:14 | disposition home or self-care (01) ==
LOC: EDUNIT# 17:52 → ER FS 17:53
DX: M54.41 Lumbago with sciatica, right side (principal); Z94.1 Heart transplant status; Z88.0 Allergy status to penicillin; Z88.2 Allergy status to sulfonamides; Z77.22 Contact with and (suspected) exposure to environmental tobacco smoke (acute) (chronic); V89.2XXA Person injured in unspecified motor-vehicle accident, traffic, initial encounter; Y92.410 Unspecified street and highway as the place of occurrence of the external cause

== ENCOUNTER 2019-07-07 23:58 | Emergency (ER) | payer OTHER, MEDICARE ==
[~2019-07-07] VITALS: Ht 187.9 cm; Wt 100.0 kg
[~2019-07-07 23:58] MED LIST changes: +CYCL10TA9 PO
--- NOTE | 2019-07-08 00:14 | ED Fall/Injury ---
General Chief Complaint: Back Problems Stated Complaint: FALL Source: patient Exam Limitations: no limitations History of Present Illness Date Seen by Provider: Jul 08, 2019 Time Seen by Provider: 00:11 Initial Comments Patient presents via EMS after a fall at home. He fell this morning going to get his mail and scraped up his right knee. He has been ambulatory. Tonight he lost his balance and fell on his left side. Ears left knee and left hip. He is able to stand and walk but it hurts. He denies head injury or loss of consciousness. He is not on blood thinners. He called the [place] nurse line who called 911 for him. Allergies and Home Medications Allergies Uncoded Allergies: PENICILLIN (Adverse Reaction, Unknown, 12/11/18) SULFA (Adverse Reaction, Unknown, 12/11/18) Home Medications Cyclobenzaprine HCl 10 Mg Tablet, 10 MG PO Q8H PRN for SPASMS Prescribed by: TONY DALTON on 06/15/19 185 Hydrocodone/Acetaminophen 1 Each Tablet, 1 TAB PO Q4-6HR Prescribed by: JING CARDONA on 04/04/19 0014 Tramadol HCl 50 Mg Tablet, 50 MG PO Q6H PRN for PAIN Prescribed by: PRABHA DOLAN on 04/16/19 213 Patient Home Medication List Home Medication List Reviewed: Yes Review of Systems Review of Systems Constitutional: no symptoms reported Eyes: No Symptoms Reported Ears, Nose, Mouth, Throat: no symptoms reported Respiratory: no symptoms reported Cardiovascular: no symptoms reported Musculoskeletal: joint pain Skin: no symptoms reported All Other Systems Reviewed Negative Unless Noted: Yes Past Zduziak-Huhyxp-Xinwau Hx Patient Social History Alcohol Use: Denies Use Recreational Drug Use: No Smoking Status: Former Smoker 2nd Hand Smoke Exposure: Yes Recent Foreign Travel: No Contact w/Someone Who Travel: No Recent Hopitalizations: No Physical Abuse: No Sexual Abuse: No Mistreated: No Fear: No Seasonal Allergies Seasonal Allergies: No Past Medical History Surgeries: Yes (back surgery, heart transplant) Respiratory: No Cardiac: Yes (heart transplant) Neurological: No Genitourinary: No Gastrointestinal: No Musculoskeletal: No Endocrine: No HEENT: No Cancer: No Psychosocial: No Integumentary: No Blood Disorders: No Physical Exam Vital Signs Vital Signs - First Documented 07/08/19 00:06 Temp 36.7 Pulse 102 Resp 20 B/P (MAP) 133/86 (102) Pulse Ox 95 O2 Delivery Room Air Capillary Refill : Height, Weight, BMI Height: 6'2.00" Weight: 230lbs. oz. 104.765086dr; 27.00 BMI Method:Stated General Appearance: WD/WN, no apparent distress Neck: non-tender, supple Cardiovascular: regular rate, rhythm, no edema Respiratory: lungs clear, normal breath sounds Gastrointestinal: soft Back: normal inspection Extremities: other (abrasion over her right patella, full range of motion. Tender left patella full range of motion. 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, no motor/sensory deficits, alert, normal mood/affect, oriented x 3 Skin: normal color, warm/dry Procedures/Interventions Suture Size: 5-0 F5-2 Progress/Results/Core Measures Results/Orders My Orders Orders - ION GARIBAY MD Knee 3 View Bilateral (07/08/19 00:06) Pelvis With Left Hip 2-3 View (07/08/19 00:06) Acetaminophen Tablet (Tylenol Tablet) (07/08/19 00:15) Medications Given in ED Current Medications Medications Dose Ordered Sig/Mac Route Start Time Stop Time Status Last Admin Dose Admin Acetaminophen 1,000 mg ONCE ONCE PO 07/08/19 00:15 07/08/19 00:16 DC 07/08/19 00:18 1,000 MG Vital Signs/I&O 07/08/19 07/08/19 00:06 01:28 Temp 36.7 36.7 Pulse 102 102 Resp 20 20 B/P (MAP) 133/86 (102) 133/86 (102) Pulse Ox 95 95 O2 Delivery Room Air Progress Progress Note : Time: 00:40 Progress Note X-ray show chronic arthritic changes but nothing acute. Patient is able to flex and straighten his left knee and hip. Given Tylenol for pain. Anticipate discharge home. Departure Impression Primary Impression: Multiple contusions Disposition: HOME, SELF-CARE Condition: Stable Departure-Patient Inst. Decision time for Depature: 00:41 Referrals: MAXIMINO FIELDS MD (PCP/Family) Primary Care Physician Patient Instructions: Contusion (DC) Add. Discharge Instructions: Tylenol or ibuprofen for pain. All discharge instructions reviewed with patient and/or family. Voiced understanding. ION GARIBAY MD Jul 08, 2019 00:14 POS
[2019-07-08] MEDS ORDERED: ACETAMINOPHEN 500 MG TAB (TYLENOL) PO ONE (00:15)
--- NOTE | 2019-07-08 01:19 | NUR ---
pt attempting to call friend to come and get him
--- NOTE | 2019-07-08 01:27 | NUR ---
friend will be here in 20-30 minutes to get pt, pt assisted to front to perform registration paperwork.
[2019-07-08 01:28] VITALS: BP 133/86
--- NOTE | 2019-07-08 06:41 | Diagnostic Imaging Report ---
INDICATION: Fell and now has pain in the left hip and both knees. FINDINGS: An AP view of the pelvis and 2 views of the left hip demonstrates no fracture or dislocation. Degenerative change is present in both hips and the lumbar spine. Surgical clips are present in the left groin. Arterial sclerosis is present. IMPRESSION: There are no acute findings. Dictated by: Dictated on workstation # [id number]
--- NOTE | 2019-07-08 07:12 | Diagnostic Imaging Report ---
INDICATION: Fell now has pain in both knees. FINDINGS: 3 views of the right knee demonstrate a suprapatellar joint effusion. Arteriosclerosis and degenerative changes are present with chondrocalcinosis. No fracture is identified. 3 views of the left knee demonstrate previous internal fixation of tibial plateau fracture. No acute fractures are present. There are moderate to severe degenerative changes. There are no effusions. IMPRESSION: 1. There is a right knee joint effusion with moderate degenerative changes. 2. Degenerative and postoperative changes present in the left knee with no acute findings. Dictated by: Dictated on workstation # [id number]
[2019-07-09] MEDS ORDERED: HYDR-4226 PO (10:42)
== END 2019-07-08 01:28 | disposition home or self-care (01) ==
LOC: EDUNIT# 23:58 → ER FS 07-08 00:05
DX: S80.01XA Contusion of right knee, initial encounter (principal); Z88.0 Allergy status to penicillin; Z88.2 Allergy status to sulfonamides; Z87.891 Personal history of nicotine dependence; Z77.22 Contact with and (suspected) exposure to environmental tobacco smoke (acute) (chronic); Z94.1 Heart transplant status; W18.39XA Other fall on same level, initial encounter; Y92.009 Unspecified place in unspecified non-institutional (private) residence as the place of occurrence of the external cause
CPT/HCPCS: 73502

== ENCOUNTER 2019-07-09 09:29 | Emergency (ER) | payer OTHER, MEDICARE ==
[~2019-07-09] VITALS: Ht 187.9 cm; Wt 101.4 kg
[2019-07-09] MEDS ORDERED: HYDROcodone/APAP 5 MG/325 MG (LORTAB) TAB PO ONE (09:45)
--- NOTE | 2019-07-09 09:51 | ED Lower Extremity ---
General Chief Complaint: Lower Extremity Stated Complaint: LT LEG PAIN Source: patient, EMS Exam Limitations: no limitations History of Present Illness Date Seen by Provider: Jul 09, 2019 Time Seen by Provider: 09:46 Initial Comments Patient presents via EMS with complaint of left lower extremity pain since a fall yesterday. Seen in this same ER yesterday for x-rays of bilateral knee, pelvis and left hip with no abnormalities. Patient states pain in this left hip and left thigh. EMS states he was able to walk and bear weight at home Method of Injury: fell Allergies and Home Medications Allergies Uncoded Allergies: PENICILLIN (Adverse Reaction, Unknown, 12/11/18) SULFA (Adverse Reaction, Unknown, 12/11/18) Home Medications Cyclobenzaprine HCl 10 Mg Tablet, 10 MG PO Q8H PRN for SPASMS Prescribed by: TONY DALTON on 06/15/19 185 Hydrocodone/Acetaminophen 1 Each Tablet, 1 TAB PO Q4-6HR Prescribed by: JING CARDONA on 04/04/19 0014 Tramadol HCl 50 Mg Tablet, 50 MG PO Q6H PRN for PAIN Prescribed by: PRABHA DOLAN on 04/16/197 Patient Home Medication List Home Medication List Reviewed: Yes Review of Systems Constitutional: no symptoms reported; No fever, No malaise, No weakness Respiratory: see HPI; No cough, No dyspnea on exertion, No short of breath Cardiovascular: No chest pain, No palpitations Gastrointestinal: No abdominal pain, No loss of appetite, No vomiting Musculoskeletal: see HPI; No back pain; joint pain; No neck pain Psychiatric/Neurological: Denies Numbness, Denies Paresthesia, Denies Weakness Past Istrpzj-Awlnrd-Ldjgop Hx Past Med/Social Hx: Reviewed Nursing Past Med/Soc Hx Patient Social History 2nd Hand Smoke Exposure: Yes Recent Foreign Travel: Yes Recent Hopitalizations: No Seasonal Allergies Seasonal Allergies: No Past Medical History Surgeries: Yes (back surgery, heart transplant) Respiratory: No Cardiac: Yes (heart transplant) Neurological: No Genitourinary: No Gastrointestinal: No Musculoskeletal: No Endocrine: No HEENT: No Cancer: No Psychosocial: No Integumentary: No Blood Disorders: No Physical Exam Vital Signs Vital Signs - First Documented 07/09/19 09:34 Temp 37.0 Pulse 107 Resp 26 B/P (MAP) 125/96 (106) Pulse Ox 96 O2 Delivery Room Air Capillary Refill : Height, Weight, BMI Height: 6'2.00" Weight: 230lbs. oz. 104.752291lo; 28.00 BMI Method:Stated General Appearance: no apparent distress, thin HEENT: normal ENT inspection Cardiovascular: regular rate, rhythm, no JVD Respiratory: chest non-tender, lungs clear Gastrointestinal: soft Back: no CVA tenderness, no vertebral tenderness Hips: left hip pain Neurologic/Psychiatric: no motor/sensory deficits, alert, normal mood/affect Skin: normal color, warm/dry Skeletal exam No gross deformity of hip I knee leg or feet of either lower extremity. Generalized tenderness from left hip to left thigh to the left knee with functional range of motion. Neurovascularly intact. No ecchymosis or edema. ( Patient primarily pointing to his left thigh soft-tissue as area of greatest pain) Procedures/Interventions Suture Size: 5-0 F5-2 Progress/Results/Core Measures Results/Orders My Orders Orders - LINDSEY MARIN DO Hip 2-3 View Left (07/09/19 09:45) Hydrocodone/Apap 5/325 Tablet (Lortab 5 (07/09/19 09:45) Medications Given in ED Current Medications Medications Dose Ordered Sig/Mac Route Start Time Stop Time Status Last Admin Dose Admin Acetaminophen/ Hydrocodone Bitart 1 tab ONCE ONCE PO 07/09/19 09:45 07/09/19 09:46 DC 07/09/19 10:11 1 TAB Vital Signs/I&O 07/09/19 09:34 Temp 37.0 Pulse 107 Resp 26 B/P (MAP) 125/96 (106) Pulse Ox 96 O2 Delivery Room Air Departure Impression Primary Impression: Fall with no significant injury Qualified Codes: W19.XXXD - Unspecified fall, subsequent encounter Disposition: HOME, SELF-CARE Condition: Stable Departure-Patient Inst. Referrals: MAXIMINO FIELDS MD (PCP/Family) Primary Care Physician Patient Instructions: Preventing Falls Scripts Hydrocodone/Acetaminophen ([place] 5-325 Tablet) 1 Each Tablet 1 TAB PO Q6H for Pain MDD 10 TABS for 5 Days, #10 TAB Prov: LINDSEY MARIN DO 07/09/19 LINDSEY MARIN DO Jul 09, 2019 09:51 POS
[2019-07-09] MEDS ORDERED: HYDR-4226 PO (10:42)
--- NOTE | 2019-07-09 11:06 | Diagnostic Imaging Report ---
CLINICAL INDICATION: Patient with left leg pain. Patient fell on 07/07/2019. EXAM: X-ray of the left hip, AP and frog-leg views. COMPARISON: X-ray of the pelvis dated 04/03/2019. FINDINGS: There is no acute fracture or dislocation. Again seen are degenerative spurs involving the lateral aspect of the left acetabular roof and sclerosis of the left hip region. There are surgical clips overlying the left hip region. There is hypertrophic spurring involving the proximal femoral head/neck junction region. Vascular calcifications are seen. Lower lumbar spine spurs are noted. IMPRESSION: Degenerative disease of the left hip with no acute fracture or dislocation. Dictated by: Dictated on workstation # [id number]
[2019-07-09 11:10] VITALS: BP 124/66
== END 2019-07-09 12:02 | disposition home or self-care (01) ==
LOC: EDUNIT# 09:29 → ER FS 09:30
DX: M79.652 Pain in left thigh (principal); M25.552 Pain in left hip; Z88.0 Allergy status to penicillin; Z88.2 Allergy status to sulfonamides; Z77.22 Contact with and (suspected) exposure to environmental tobacco smoke (acute) (chronic); Z94.1 Heart transplant status; W19.XXXA Unspecified fall, initial encounter
CPT/HCPCS: 73502

== ENCOUNTER 2019-11-13 01:47 | Emergency (ER) | payer OTHER, MEDICARE ==
[~2019-11-13] VITALS: Ht 157.9 cm; Wt 69.1 kg
[~2019-11-13 01:47] MED LIST changes: -TRAM50TA2 PO; +TRM50T PO
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
[2019-11-13] MEDS ORDERED: NS 100 ML (IVPB) BAG IV ONE (02:30)
[2019-11-13] MEDS ORDERED: HOLD METFORMIN - RECEIVED CONTRAST 20 ML VIAL IV SCH (02:30)
[2019-11-13] MEDS ORDERED: IOHEXOL 350 MG/ML 100 ML (OMNIPAQUE 350) VIAL IV ONE (02:30)
--- NOTE | 2019-11-13 02:35 | ED Fall/Injury ---
General Chief Complaint: Trauma-Non Activation Stated Complaint: FALL,RIB PAIN Nursing Triage Note: fell pn a flat bed trailer striking corner injuring left lower ribs. ems was called 2 hrs ago and pt refused transport at that time, states ribs started hurting 20 minutes ago Source: patient Exam Limitations: no limitations History of Present Illness Date Seen by Provider: Nov 13, 2019 Time Seen by Provider: 02:04 Initial Comments This 74 year old gentleman presents to the ER with pain in the left upper quadrant after falling off the back of his trailer after loading a mower a few hours ago. He reports striking his left lower chest and left upper abdomen on the corner of the trailer. He denies head injury as he was protecting his head with his hands. He denies pain in any other location. EMS was activated on scene but patient declined transfer. Pain intensified a few hours later and he came to the ER. He reports lightheadedness prior to the fall. 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 He has splinting respirations. Occurred: this evening Injuries/Pain Location: chest, abdomen Context: lightheaded, other (stepped off back of trailer) Loss of Consciousness: no loss of consciousness Allergies and Home Medications Allergies Uncoded Allergies: PENICILLIN (Adverse Reaction, Unknown, 12/11/18) SULFA (Adverse Reaction, Unknown, 12/11/18) Home Medications Ciprofloxacin HCl 250 Mg Tablet, 250 MG PO BID Prescribed by: JUSTIN GARCIA on 11/13/19 0439 Cyclobenzaprine HCl 10 Mg Tablet, 10 MG PO Q8H PRN for SPASMS Prescribed by: TONY DALTON on 06/15/19 1852 Hydrocodone/Acetaminophen 1 Each Tablet, 1 TAB PO Q4-6HR Prescribed by: JING CARDONA on 04/04/19 0014 Hydrocodone/Acetaminophen 1 Each Tablet, 1 TAB PO Q6H Prescribed by: LINDSEY MARIN on 07/09/19 1042 Hydrocodone/Acetaminophen 1 Each Tablet, 0.5-1 EACH PO Q6H Prescribed by: JUSTIN GARCIA on 11/13/19 0439 Tramadol HCl 50 Mg Tablet, 50 MG PO Q6H PRN for PAIN Prescribed by: PRABHA DOLAN on 04/16/19 5168 Patient Home Medication List Home Medication List Reviewed: Yes Review of Systems Review of Systems Constitutional: no symptoms reported Eyes: No Symptoms Reported Ears, Nose, Mouth, Throat: no symptoms reported Respiratory: see HPI Cardiovascular: see HPI Gastrointestinal: see HPI Genitourinary: no symptoms reported Musculoskeletal: see HPI Skin: no symptoms reported Psychiatric/Neurological: No Symptoms Reported Past Yyljcnv-Svpyik-Lhanla Hx Past Med/Social Hx: Reviewed Nursing Past Med/Soc Hx Patient Social History Alcohol Use: Denies Use Recreational Drug Use: No Smoking Status: Never a Smoker 2nd Hand Smoke Exposure: No Recent Foreign Travel: No Contact w/Someone Who Travel: No Recent Infectious Disease Expo: No Recent Hopitalizations: No Physical Abuse: No Sexual Abuse: No Mistreated: No Fear: No Seasonal Allergies Seasonal Allergies: No Past Medical History Surgeries: Yes (back surgery, heart transplant) Respiratory: No Cardiac: Yes (heart transplant) Neurological: No Genitourinary: No Gastrointestinal: No Musculoskeletal: No Endocrine: No HEENT: No Cancer: No Psychosocial: No Integumentary: No Blood Disorders: No Physical Exam Vital Signs Vital Signs - First Documented 11/13/19 01:56 Temp 37.2 Pulse 90 B/P (MAP) 130/70 (90) Pulse Ox 95 O2 Delivery Room Air Capillary Refill : Less Than 3 Seconds Height, Weight, BMI Height: 6'2.00" Weight: 230lbs. oz. 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, no motor/sensory deficits, alert, normal mood/affect, oriented x 3 Skin: normal color, warm/dry Procedures/Interventions Suture Size: 5-0 F5-2 Progress/Results/Core Measures Results/Orders Lab Results Laboratory Tests Test 11/13/19 02:15 11/13/19 02:20 Range/Units White Blood Count 8.9 4.3-11.0 10^3/uL Red Blood Count 4.70 4.35-5.85 10^6/uL Hemoglobin 13.3 13.3-17.7 G/DL Hematocrit 41 40-54 % Mean Corpuscular Volume 87 80-99 FL Mean Corpuscular Hemoglobin 28 25-34 PG Mean Corpuscular Hemoglobin Concent 32 32-36 G/DL Red Cell Distribution Width 14.8 H 10.0-14.5 % Platelet Count 224 130-400 10^3/uL Mean Platelet Volume 9.4 7.4-10.4 FL Neutrophils (%) (Auto) 65 42-75 % Lymphocytes (%) (Auto) 12 12-44 % Monocytes (%) (Auto) 9 0-12 % Eosinophils (%) (Auto) 13 H 0-10 % Basophils (%) (Auto) 1 0-10 % Neutrophils # (Auto) 5.7 1.8-7.8 X 10^3 Lymphocytes # (Auto) 1.1 1.0-4.0 X 10^3 Monocytes # (Auto) 0.8 0.0-1.0 X 10^3 Eosinophils # (Auto) 1.1 H 0.0-0.3 10^3/uL Basophils # (Auto) 0.1 0.0-0.1 10^3/uL Neutrophils % (Manual) 60 % Lymphocytes % (Manual) 9 % Monocytes % (Manual) 12 % Eosinophils % (Manual) 14 % Basophils % (Manual) 0 % Band Neutrophils 5 % Elliptocytes SLIGHT Sodium Level 141 135-145 MMOL/L Potassium Level 4.3 3.6-5.0 MMOL/L Chloride Level 105 98-107 MMOL/L Carbon Dioxide Level 23 21-32 MMOL/L Anion Gap 13 5-14 MMOL/L Blood Urea Nitrogen 13 7-18 MG/DL Creatinine 1.29 0.60-1.30 MG/DL Estimat Glomerular Filtration Rate 55 BUN/Creatinine Ratio 10 Glucose Level 98 70-105 MG/DL Calcium Level 9.1 8.5-10.1 MG/DL Corrected Calcium 9.2 8.5-10.1 MG/DL Total Bilirubin 0.5 0.1-1.0 MG/DL Aspartate Amino Transf (AST/SGOT) 39 H 5-34 U/L Alanine Aminotransferase (ALT/SGPT) 13 0-55 U/L Alkaline Phosphatase 94 40-136 U/L Troponin I < 0.30 <0.30 NG/ML Total Protein 7.3 6.4-8.2 GM/DL Albumin 3.9 3.2-4.5 GM/DL Urine Color YELLOW Urine Clarity CLEAR Urine pH 6.0 5-9 Urine Specific [place] 1.020 1.016-1.022 Urine Protein NEGATIVE NEGATIVE Urine Glucose (UA) NEGATIVE NEGATIVE Urine Ketones NEGATIVE NEGATIVE Urine Nitrite NEGATIVE NEGATIVE Urine Bilirubin NEGATIVE NEGATIVE Urine Urobilinogen 0.2 < = 1.0 MG/DL Urine Leukocyte Esterase TRACE H NEGATIVE Urine RBC (Auto) NEGATIVE NEGATIVE Urine RBC NONE /HPF Urine WBC 5-10 H /HPF Urine Squamous Epithelial Cells 2-5 /HPF Urine Crystals NONE /LPF Urine Bacteria NEGATIVE /HPF Urine Casts NONE /LPF Urine Mucus SMALL H /LPF Urine Culture Indicated YES My Orders Orders - JUSTIN WILBURN MD Cbc With Automated Diff (11/13/19 02:09) Comprehensive Metabolic Panel (11/13/19 02:09) Ua Culture If Indicated (11/13/19 02:09) Ed Iv/Invasive Line Start (11/13/19 02:09) Ekg Tracing (11/13/19 02:09) Ct Chest/Abdomen/Pelvis W (11/13/19 02:09) Troponin I Fs (11/13/19 02:12) Iohexol Injection (Omnipaque 350 Mg/Ml 1 (11/13/19 02:30) Received Contrast (Hold Metformin- Contr (11/13/19 02:30) Ns (Ivpb) (Sodium Chloride 0.9% Ivpb Bag (11/13/19 02:30) Urine Culture (11/13/19 02:20) Manual Differential (11/13/19 02:15) Ciprofloxacin Tablet (Cipro Tablet) (11/13/19 04:45) Medications Given in ED Current Medications Medications Dose Ordered Sig/Mac Route Start Time Stop Time Status Last Admin Dose Admin Iohexol 100 ml ONCE ONCE IV 11/13/19 02:30 11/13/19 02:31 DC 11/13/19 03:16 100 ML Sodium Chloride 100 ml ONCE ONCE IV 11/13/19 02:30 11/13/19 02:31 DC 11/13/19 03:16 100 ML Vital Signs/I&O 11/13/19 01:56 Temp 37.2 Pulse 90 B/P (MAP) 130/70 (90) Pulse Ox 95 O2 Delivery Room Air Blood Pressure Mean: 90 Progress Progress Note #1: Time: 02:37 Progress Note Patient seen and examined. He declines medication for pain. Labs are pending. EKG is unremarkable. CT will be obtained after review of labs. Progress Note #2: Time: 04:44 Progress Note There were no major abnormalities identified and blood work. UA was suggestive of urinary tract infection. Patient was treated with Cipro 250 mg orally. He has allergies to penicillin and sulfa. CT revealed no major traumatic injuries. However, there were multiple incidental findings including a possible left atrial appendage thrombus. Patient states his transplant surgeon and livestock exhibitor at the [facility] are aware of this. He is not presently on any ant icoagulation. He takes aspirin. I discussed this situation with Dr. Garcia. Given the recent fall/trauma, it would be too risky to start anticoagulation at this time. Patient was given a copy of the CT report and advised to discuss this with his primary livestock exhibitor later in the day. No emergent therapies were necessary. Patient again declined pain medication. Initial ECG Impression Date: Nov 13, 2019 Initial ECG Impression Time: 02:17 Initial ECG Rate: 86 Initial ECG Rhythm: Normal Sinus Initial ECG Intervals: Normal Initial ECG Impression: Normal Comment Normal sinus rhythm with no ST elevation or depression. Right axis deviation. No abnormal intervals. Diagnostic Imaging Diagonstic Imaging: CT Plain Films/CT/US/NM/MRI: chest, abdomen, pelvis Comments CT chest, abdomen and pelvis viewed by me and [employer] report reviewed. There were multiple incidental findings including a possible thrombus in the left atrial appendage. No traumatic injuries were identified. See report for details. Departure Impression Primary Impression: Fall from stationary vehicle Qualified Codes: W17.89XA - Other fall from one level to another, initial encounter Additional Impressions: Contusion, abdominal wall Qualified Codes: S30.1XXA - Contusion of abdominal wall, initial encounter Thrombus of left atrial appendage Urinary tract infection Qualified Codes: N39.0 - Urinary tract infection, site not specified Disposition: 01 HOME, SELF-CARE Condition: Improved Departure-Patient Inst. Decision time for Depature: 04:31 Referrals: MAXIMINO FIELDS MD (PCP/Family) Primary Care Physician Patient Instructions: Contusion (DC), Urinary Tract Infections in Adults Add. Discharge Instructions: 1. Urinary tract infection. Drink plenty of clear liquids. Complete your antibiotic as prescribed. 2. Abdominal wall contusion. You may take Tylenol (acetaminophen) up to 650 mg every 6 hours as needed for mild pain. For more severe pain, take hydrocodone as prescribed. 3. Left atrial appendage thrombus. There was a possible clot seen in your heart on the CT scan. Please contact your livestock exhibitor during business hours today to discuss further care and evaluation. 4. CT scan findings. There were other incidental CT scan findings that should be discussed with your primary care provider. Please make an appointment to see your primary care provider within the next couple weeks to discuss these findings. Bring a copy of the report with you. All discharge instructions reviewed with patient and/or family. Voiced understanding. Scripts Hydrocodone/Acetaminophen (Hydrocodone-Acetamin 5-325 mg) 1 Each Tablet 0.5-1 EACH PO Q6H, #5 TAB Prov: JUSTIN WILBURN MD 11/13/19 Ciprofloxacin HCl (Ciprofloxacin HCl) 250 Mg Tablet 250 MG PO BID, #10 TAB Prov: JUSTIN WILBURN MD 11/13/19 JUSTIN WILBURN MD Nov 13, 2019 02:35
[2019-11-13 02:53] LABS: BILIRUBIN,URINE NEGATIVE (NEGATIVE); CLARITY,URINE CLEAR; COLOR,URINE YELLOW; GLUCOSE, URINE (UA) NEGATIVE (NEGATIVE); KETONES,URINE NEGATIVE (NEGATIVE); LEUKOCYTE ESTERASE ,URINE TRACE (NEGATIVE); NITRITE,URINE NEGATIVE (NEGATIVE); PROTEIN,URINE NEGATIVE (NEGATIVE)
[2019-11-13 02:54] LABS: BACTERIA,URINE NEGATIVE /HPF
[2019-11-13 02:56] LABS: HEMATOCRIT 41 % (40-54); HEMOGLOBIN 13.3 G/DL (13.3-17.7); MEAN CORPUSCULAR HEMOGLOBIN 28 PG (25-34); WHITE BLOOD COUNT 8.9 10^3/uL (4.3-11.0)
[2019-11-13 02:57] LABS: BASOPHILS # (AUTO) 0.1 10^3/uL (0.0-0.1); BASOPHILS % (AUTO) 1 % (0-10); EOSINOPHILS # (AUTO) 1.1 10^3/uL (0.0-0.3); EOSINOPHILS % (AUTO) 13 % (0-10); LYMPHOCYTES # (AUTO) 1.1 X 10^3 (1.0-4.0); LYMPHOCYTES % (AUTO) 12 % (12-44); MEAN CORPUSCULAR HGB CONC 32 G/DL (32-36); MEAN CORPUSCULAR VOLUME 87 FL (80-99); MEAN PLATELET VOLUME 9.4 FL (7.4-10.4); MONOCYTES # (AUTO) 0.8 X 10^3 (0.0-1.0); MONOCYTES % (AUTO) 9 % (0-12); NEUTROPHILS # (AUTO) 5.7 X 10^3 (1.8-7.8); NEUTROPHILS % (AUTO) 65 % (42-75); PLATELET COUNT 224 10^3/uL (130-400); RED CELL DISTRIBUTION WIDTH 14.8 % (10.0-14.5)
[2019-11-13 03:05] LABS: BAND NEUTROPHILS 5 %; BASOPHILS % (MANUAL) 0 %; ELLIPT/OVALOCYTES SLIGHT; EOSINOPHILS % (MANUAL) 14 %; LYMPHOCYTES % (MANUAL) 9 %; MONOCYTES % (MANUAL) 12 %; NEUTROPHILS % (MANUAL) 60 %
[2019-11-13 03:06] LABS: ALANINE AMINOTRANSFERASE 13 U/L (0-55); ALKALINE PHOSPHATASE 94 U/L (40-136); BILIRUBIN,TOTAL 0.5 MG/DL (0.1-1.0); BUN/CREATININE RATIO 10; CALCIUM 9.1 MG/DL (8.5-10.1); CARBON DIOXIDE 23 MMOL/L (21-32); CHLORIDE 105 MMOL/L (98-107); CREATININE SERUM 1.29 MG/DL (0.60-1.30); GFR ESTIMATED 55; GLUCOSE 98 MG/DL (70-105); POTASSIUM 4.3 MMOL/L (3.6-5.0); SODIUM 141 MMOL/L (135-145); TOTAL PROTEIN 7.3 GM/DL (6.4-8.2)
[2019-11-13 03:07] LABS: ALBUMIN 3.9 GM/DL (3.2-4.5)
[2019-11-13] MEDS ORDERED: HYDR-83 PO (04:39)
[2019-11-13] MEDS ORDERED: CIPR250T3 PO (04:39)
[2019-11-13 04:43] VITALS: BP 130/70
[2019-11-13] MEDS ORDERED: CIPROFLOXACIN 500 MG (CIPRO) TABLET PO ONE (04:45)
--- NOTE | 2019-11-13 07:24 | Diagnostic Imaging Report ---
PROCEDURE: CT chest, abdomen, and pelvis with contrast. TECHNIQUE: Multiple contiguous axial images were obtained through the chest, abdomen, and pelvis after the administration of intravenous contrast. Auto Exposure Controls were utilized during the CT exam to meet ALARA standards for radiation dose reduction. INDICATION: Fall from flatbed truck. Chest and back pain. FINDINGS: CT CHEST: Good opacification of the aorta and pulmonary arteries. No evidence of aortic dissection. Median sternotomy changes with atherosclerotic changes of coronary arteries noted. Mild ventriculomegaly. Left atrium is enlarged. There is a 2.4 cm filling defect in the left atrial appendage most likely representing thrombus. There are densely calcified lymph nodes. There are diffuse calcified nodules throughout both lungs measuring 5 mm and smaller consistent with granulomatous disease. The lungs are well-aerated with obstructive interstitial lung disease present bilaterally. No bronchiectasis or bullae demonstrated. No pneumothorax or pleural effusion. No acute fractures demonstrated in the thoracic spine or ribs. IMPRESSION: 1. Diffuse granulomatous disease. 2. Obstructive interstitial lung disease. 3. 2.4 cm filling defect in left atrial appendage likely representing thrombus. Would consider echocardiogram. CT abdomen and pelvis: Good opacification of the aorta and abdominal vessels which show atherosclerotic changes without evidence of aneurysm. There is no free air or free fluid present. Abdominal organs show normal enhancement without visceral laceration. There is splenomegaly. Fatty changes of the liver. Small simple cysts noted anteriorly in the right lobe of the liver. The adrenal glands are not enlarged. Kidneys show no evidence of obstruction or calculi. No laceration. There are small bilateral cortical cysts. Pancreas is normal. Bowel gas is pattern is normal throughout small bowel and colon. Reformatted images show bilateral pars defect of L5 with grade 1 anterior listhesis of L5 on S1. There is moderate degenerative disc disease noted throughout the entire thoracic and lumbar spine with scattered levels of bony bridging anteriorly. IMPRESSION: 1. No acute abnormalities noted within the abdomen or pelvis. 2. 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 3. Dense atherosclerotic changes of the aorta and abdominal vessels. 4. Benign-appearing cyst in the kidneys and liver. 5. Enlarged prostate. 6. Bilateral pars defect with grade 1 spondylolisthesis of L5 anteriorly on S1. These findings are concordant with the preliminary report. Dictated by: Dictated on workstation # [id number]
== END 2019-11-13 04:43 | disposition home or self-care (01) ==
LOC: EDUNIT# 01:47 → ER FS 01:49
DX: S30.1XXA Contusion of abdominal wall, initial encounter (principal); I23.6 Thrombosis of atrium, auricular appendage, and ventricle as current complications following acute myocardial infarction; N39.0 Urinary tract infection, site not specified; Z94.1 Heart transplant status; Z88.0 Allergy status to penicillin; Z88.1 Allergy status to other antibiotic agents; W17.89XA Other fall from one level to another, initial encounter
CPT/HCPCS: 36415; 71260; 74177; 80053; 81000; 84484; 85007; 85027; 87088; 93005

== ENCOUNTER 2020-07-21 12:52 | Emergency (ER) | payer OTHER, MEDICARE ==
[~2020-07-21] VITALS: Ht 177 cm; Wt 85.0 kg
[~2020-07-21 12:52] MED LIST changes: +ACHD5005 PO; +CIPR250T3 PO
--- NOTE | 2020-07-21 13:06 | ED General ---
General Stated Complaint: AGITATION History of Present Illness Date Seen by Provider: Jul 21, 2020 Time Seen by Provider: 12:55 Initial Comments 75-year-old male brought in by EMS. EMS reports they are not exactly sure why they were called out but possible for agitation and possible loss of vision in his left eye. Patient reports he lost vision in his left eye last Monday. He states that he saw "Dr. Fields" and just ending home. Patient does seen to get agitated easily and possibly has some dementia as his history is very difficult to obtain. Outside of the vision loss I have not been able to listen any other complaints. EMS believes that his mentation is at his baseline. Allergies and Home Medications Allergies Uncoded Allergies: PENICILLIN (Adverse Reaction, Unknown, 12/11/18) SULFA (Adverse Reaction, Unknown, 12/11/18) Home Medications Ciprofloxacin HCl 250 Mg Tablet, 250 MG PO BID Prescribed by: JUSTIN GARCIA on 11/13/19 0439 Cyclobenzaprine HCl 10 Mg Tablet, 10 MG PO Q8H PRN for SPASMS Prescribed by: TONY DALTON on 06/15/19 1852 Hydrocodone/Acetaminophen 1 Each Tablet, 1 TAB PO Q4-6HR Prescribed by: JING CARDONA on 04/04/19 0014 Hydrocodone/Acetaminophen 1 Each Tablet, 1 TAB PO Q6H Prescribed by: LINDSEY MARIN on 07/09/19 1042 Hydrocodone/Acetaminophen 1 Each Tablet, 0.5-1 EACH PO Q6H Prescribed by: JUSTIN GARCIA on 11/13/19 0439 Tramadol HCl 50 Mg Tablet, 50 MG PO Q6H PRN for PAIN Prescribed by: PRABHA DOLAN on 04/16/197 Patient Home Medication List Home Medication List Reviewed: Yes Review of Systems Review of Systems Constitutional: No chills, No fever EENTM: see HPI, vision loss Respiratory: no symptoms reported Cardiovascular: no symptoms reported Gastrointestinal: no symptoms reported Genitourinary: no symptoms reported Musculoskeletal: no symptoms reported Skin: no symptoms reported Psychiatric/Neurological: No Symptoms Reported Hematologic/Lymphatic: No Symptoms Reported Past Grafclc-Qlwrvd-Jqbhzn Hx Past Med/Social Hx: Reviewed Nursing Past Med/Soc Hx Patient Social History 2nd Hand Smoke Exposure: No Recent Hopitalizations: No Seasonal Allergies Seasonal Allergies: No Past Medical History Surgeries: Yes (back surgery, heart transplant) Respiratory: No Cardiac: Yes (heart transplant) Neurological: No Genitourinary: No Gastrointestinal: No Musculoskeletal: No Endocrine: No HEENT: No Cancer: No Psychosocial: No Integumentary: No Blood Disorders: No Physical Exam Vital Signs Vital Signs - First Documented 07/21/20 13:06 Temp 36.2 Pulse 86 Resp 16 B/P (MAP) 124/72 (89) Pulse Ox 98 O2 Delivery Room Air Capillary Refill : Height, Weight, BMI Height: 6'2.00" Weight: 230lbs. oz. 104.097620tn; 27.00 BMI Method:Stated General Appearance: No Apparent Distress, Other (agitated) Eyes: Left Eye Other (pupils are somewhat constricted bilateral so difficult to obtain a good PERRL exam but seems to be reactive to light they are equal bilateral. Patient reports he cannot see out of his left eye when I cover his right eye. Patient does not follow command with either eye to follow my finger.) Neck: Non Tender, Supple Respiratory: Lungs Clear, Normal Breath Sounds Cardiovascular: Regular Rate, Rhythm, No Edema Gastrointestinal: Non Tender, Soft Back: No CVA Tenderness, No Vertebral Tenderness Extremity: Normal Capillary Refill Neurologic/Psychiatric: Alert, Other (patient does not answer questions when I try to obtain his orientation. Patient just continuing repeats that he saw Dr. Castillo. EMS reports this is his baseline.) Procedures/Interventions Suture Size: 5-0 F5-2 Progress/Results/Core Measures Suspected Sepsis SIRS Temperature: Pulse: Respiratory Rate: Laboratory Tests 07/21/20 13:05: White Blood Count 6.4 Blood Pressure / Mean: Laboratory Tests 07/21/20 13:05: Creatinine 1.20, INR Comment 1.0, Platelet Count 213, Total Bilirubin 0.9 Results/Orders Lab Results Laboratory Tests Test 07/21/20 13:05 Range/Units White Blood Count 6.4 4.3-11.0 10^3/uL Red Blood Count 5.00 4.35-5.85 10^6/uL Hemoglobin 13.8 13.3-17.7 G/DL Hematocrit 44 40-54 % Mean Corpuscular Volume 88 80-99 FL Mean Corpuscular Hemoglobin 28 25-34 PG Mean Corpuscular Hemoglobin Concent 32 32-36 G/DL Red Cell Distribution Width 14.7 H 10.0-14.5 % Platelet Count 213 130-400 10^3/uL Mean Platelet Volume 9.5 7.4-10.4 FL Immature Granulocyte % (Auto) 0 % Neutrophils (%) (Auto) 66 42-75 % Lymphocytes (%) (Auto) 14 12-44 % Monocytes (%) (Auto) 12 0-12 % Eosinophils (%) (Auto) 8 0-10 % Basophils (%) (Auto) 1 0-10 % Neutrophils # (Auto) 4.3 1.8-7.8 X 10^3 Lymphocytes # (Auto) 0.9 L 1.0-4.0 X 10^3 Monocytes # (Auto) 0.8 0.0-1.0 X 10^3 Eosinophils # (Auto) 0.5 H 0.0-0.3 10^3/uL Basophils # (Auto) 0.1 0.0-0.1 10^3/uL Immature Granulocyte # (Auto) 0.0 0.0-0.1 10^3/uL Erythrocyte Sedimentation Rate 20 0-30 MM/HR Prothrombin Time 13.9 12.2-14.7 SEC INR Comment 1.0 0.8-1.4 Activated Partial Thromboplast Time 30 24-35 SEC Sodium Level 137 135-145 MMOL/L Potassium Level 4.5 3.6-5.0 MMOL/L Chloride Level 104 98-107 MMOL/L Carbon Dioxide Level 23 21-32 MMOL/L Anion Gap 10 5-14 MMOL/L Blood Urea Nitrogen 9 7-18 MG/DL Creatinine 1.20 0.60-1.30 MG/DL Estimat Glomerular Filtration Rate 59 BUN/Creatinine Ratio 8 Glucose Level 110 H 70-105 MG/DL Calcium Level 9.2 8.5-10.1 MG/DL Corrected Calcium 9.2 8.5-10.1 MG/DL Total Bilirubin 0.9 0.1-1.0 MG/DL Aspartate Amino Transf (AST/SGOT) 27 5-34 U/L Alanine Aminotransferase (ALT/SGPT) 8 0-55 U/L Alkaline Phosphatase 84 40-136 U/L C-Reactive Protein 0.06 <0.50 MG/DL Total Protein 7.7 6.4-8.2 GM/DL Albumin 4.0 3.2-4.5 GM/DL My Orders Orders - MEDRANO,KYLEE L DO Ct Head Wo-R/O Stroke (07/21/20 13:14) Cbc With Automated Diff (07/21/20 13:14) Comprehensive Metabolic Panel (07/21/20 13:14) Protime With Inr (07/21/20 13:14) Partial Thromboplastin Time (07/21/20 13:14) Ua Culture If Indicated (07/21/20 13:14) Erythrocyte Sedimentation Rate (07/21/20 13:14) Crp Fs (07/21/20 13:14) Vital Signs/I&O 07/21/20 13:06 Temp 36.2 Pulse 86 Resp 16 B/P (MAP) 124/72 (89) Pulse Ox 98 O2 Delivery Room Air Capillary Refill : Progress Note : Time: 14:30 Progress Note Patient with no acute findings. He hasn't reported visual loss that is now over 4 days old. We did call the eye center in [place] and they made him an appointment for August 06 which is a at [address] with negative [address] scan and negative labs. Patient stable and will be discharged home. The patient has another bilingual medical assistant or back up scan coordinator she should call them to make an appointment with his own provider. Diagnostic Imaging Diagonstic Imaging: CT Plain Films/CT/US/NM/MRI: head Comments no acute findings Reviewed: Discussed w/Radiologist, Reviewed/Discussed Departure Impression Primary Impression: Vision loss of left eye Disposition: HOME, SELF-CARE Condition: Stable Departure-Patient Inst. Referrals: MAXIMINO FIELDS MD (PCP/Family) Primary Care Physician Patient Instructions: Age-Related Vision Loss, How to Care for Your Eyes Add. Discharge Instructions: You have an appointment on August 06 which is a at 1 PM at [facility] to further evaluate your vision. If you have an established I please call them for an appointment. Please follow-up with Dr. Castillo by the end of this week. KYLEE MEDRANO DO Jul 21, 2020 13:06
--- NOTE | 2020-07-21 13:49 | Diagnostic Imaging Report ---
Clinical indications: Patient with vision loss left eye. Exam: Axial CT scan of the brain without IV contrast with coronal and sagittal reformatted images. Auto Exposure Controls were utilized during the CT exam to meet ALARA standards for radiation dose reduction. Comparison: Head CT without contrast dated 04/04/2019.. Findings: There is no gross CT evidence of acute cerebral infarct, intracranial hemorrhage, or gross mass effect. Stable moderate sized area of chronic cerebral infarct involving the right parietal/occipital lobe region. There is stable confluent low-attenuation white matter changes involving the white matter of the parietal lobes. Stable diffuse brain parenchymal volume loss. There is no brain herniation midline shift. There is no hydrocephalus. Basal cisterns are unremarkable. There is no dense vessel sign seen. Basal cisterns are unremarkable. Extra cranial soft tissues, skull, and orbits are unremarkable. Paranasal sinuses and mastoid air cells are clear. Impression: 1. Stable CT scan of the brain with no gross CT evidence of acute intracranial process. 2: Stable chronic cerebral infarct involving the right parietal lobe and right occipital lobe region. Results of this report was discussed with Dr. Chandler Ambrose via the telephone on 07/21/2020 at 1345 hours. Dictated by: Dictated on workstation # [id number]
[2020-07-21 13:52] LABS: EOSINOPHILS % (AUTO) 8 % (0-10); HEMATOCRIT 44 % (40-54); HEMOGLOBIN 13.8 G/DL (13.3-17.7); LYMPHOCYTES % (AUTO) 14 % (12-44); MEAN CORPUSCULAR HEMOGLOBIN 28 PG (25-34); MEAN CORPUSCULAR HGB CONC 32 G/DL (32-36); MEAN CORPUSCULAR VOLUME 88 FL (80-99); MEAN PLATELET VOLUME 9.5 FL (7.4-10.4); MONOCYTES % (AUTO) 12 % (0-12); NEUTROPHILS % (AUTO) 66 % (42-75); PLATELET COUNT 213 10^3/uL (130-400); PROTHROMBIN TIME PATIENT 13.9 SEC (12.2-14.7); WHITE BLOOD COUNT 6.4 10^3/uL (4.3-11.0)
[2020-07-21 13:53] LABS: BASOPHILS # (AUTO) 0.1 10^3/uL (0.0-0.1); BASOPHILS % (AUTO) 1 % (0-10); EOSINOPHILS # (AUTO) 0.5 10^3/uL (0.0-0.3); ERYTHROCYTE SEDIMENTATION RATE 20 MM/HR (0-30); LYMPHOCYTES # (AUTO) 0.9 X 10^3 (1.0-4.0); MONOCYTES # (AUTO) 0.8 X 10^3 (0.0-1.0); NEUTROPHILS # (AUTO) 4.3 X 10^3 (1.8-7.8)
[2020-07-21 14:17] LABS: BILIRUBIN,TOTAL 0.9 MG/DL (0.1-1.0); CALCIUM 9.2 MG/DL (8.5-10.1); CREATININE SERUM 1.2 MG/DL (0.60-1.30); POTASSIUM 4.5 MMOL/L (3.6-5.0)
[2020-07-21 14:18] LABS: TOTAL PROTEIN 7.7 GM/DL (6.4-8.2)
[2020-07-21 14:42] VITALS: BP 132/82
[2020-07-21 15:13] LABS: BACTERIA,URINE NEGATIVE /HPF; BILIRUBIN,URINE NEGATIVE (NEGATIVE); CLARITY,URINE CLEAR; COLOR,URINE YELLOW; GLUCOSE, URINE (UA) NEGATIVE (NEGATIVE); KETONES,URINE NEGATIVE (NEGATIVE); LEUKOCYTE ESTERASE ,URINE NEGATIVE (NEGATIVE); NITRITE,URINE NEGATIVE (NEGATIVE); PH,URINE 6.5 (5-9); PROTEIN,URINE TRACE (NEGATIVE); SQUAMOUS EPITHELIAL CELL,UR 0-2 /HPF; WBC,URINE 0-2 /HPF
== END 2020-07-21 14:43 | disposition home or self-care (01) ==
LOC: EDUNIT# 12:52 → ER FS 12:54
DX: H54.62 Unqualified visual loss, left eye, normal vision right eye (principal); R45.1 Restlessness and agitation; Z88.2 Allergy status to sulfonamides; Z88.0 Allergy status to penicillin
CPT/HCPCS: 36415; 70450; 80053; 81000; 85025; 85610; 85652; 85730; 86141

== ENCOUNTER 2020-07-23 00:44 | Emergency (ER) | payer OTHER, MEDICARE ==
[~2020-07-23] VITALS: Ht 177 cm; Wt 93.0 kg
--- NOTE | 2020-07-23 01:27 | ED Neurological Problem ---
General Chief Complaint: Altered Mental Status Stated Complaint: ALTERED MENTAL STATUS Source: family Exam Limitations: clinical condition History of Present Illness Date Seen by Provider: Jul 23, 2020 Time Seen by Provider: 01:15 Initial Comments 75 y/o male presents via EMS w concern of possible stroke. Found by neighbor in his bathroom w decreased mental status and on the floor. Last seen @ 1400 by the neighbor and pt was confused.....but walking on his own outdoors. Hx given by his son and his neighbor and very limited. Allergies and Home Medications Allergies Uncoded Allergies: PENICILLIN (Adverse Reaction, Unknown, 12/11/18) SULFA (Adverse Reaction, Unknown, 12/11/18) Home Medications Ciprofloxacin HCl 250 Mg Tablet, 250 MG PO BID Prescribed by: JUSTIN GARCIA on 11/13/19 0439 Cyclobenzaprine HCl 10 Mg Tablet, 10 MG PO Q8H PRN for SPASMS Prescribed by: TONY DALTON on 06/15/19 1852 Hydrocodone/Acetaminophen 1 Each Tablet, 1 TAB PO Q4-6HR Prescribed by: JING CARDONA on 04/04/19 0014 Hydrocodone/Acetaminophen 1 Each Tablet, 1 TAB PO Q6H Prescribed by: LINDSEY MARIN on 07/09/19 1042 Hydrocodone/Acetaminophen 1 Each Tablet, 0.5-1 EACH PO Q6H Prescribed by: JUSTIN GARCIA on 11/13/19 0439 Tramadol HCl 50 Mg Tablet, 50 MG PO Q6H PRN for PAIN Prescribed by: PRABHA DOLAN on 04/16/197 Patient Home Medication List Home Medication List Reviewed: Yes Review of Systems Review of Systems Constitutional: no symptoms reported Unable to obtain ROS due to MS change Past [place] Hx Past Med/Social Hx: Reviewed Nursing Past Med/Soc Hx Patient Social History 2nd Hand Smoke Exposure: No Recent Foreign Travel: No Contact w/Someone Who Travel: No Recent Hopitalizations: No Seasonal Allergies Seasonal Allergies: No Past Medical History Surgeries: Yes (back surgery, heart transplant) Respiratory: No Cardiac: Yes (heart transplant) Neurological: No Genitourinary: No Gastrointestinal: No Musculoskeletal: No Endocrine: No HEENT: No Cancer: No Psychosocial: No Integumentary: No Blood Disorders: No Physical Exam Vital Signs Vital Signs - First Documented 07/23/20 01:00 Temp 36.7 Pulse 113 Resp 27 B/P (MAP) 170/95 (120) Pulse Ox 92 O2 Delivery Room Air Capillary Refill : Height, Weight, BMI Height: 6'2.00" Weight: 230lbs. oz. 104.547163th; 27.00 BMI Method:Stated General Appearance: WD/WN, no apparent distress Neck: non-tender, supple Respiratory: chest non-tender, lungs clear Cardiovascular: regular rate, rhythm, no edema, no JVD Gastrointestinal: non tender, soft, no pulsatile mass Back: no CVA tenderness, no vertebral tenderness Extremities: normal inspection, no pedal edema, no calf tenderness, normal capillary refill Motor/Sensory: weak motor strength LUE, weak motor strength LLE Skin: normal color, warm/dry Stroke Onset of Symptoms Date of Onset of Symptoms: Jul 22, 2020 Time of Symptom Onset: 14:00 Onset of Symptoms: Yes NIH Stroke Scale Assessment Select: Initial Level of Consciousness: 0=Alert (0), Level of Consciousness-Questions: 2=Answer neither question (2), LOC Commands: 2=Performs neither task (2), Gaze: Partial Gaze Palsy (1), Visual Ace: 0=No visual loss (0), Facial Movement (Facial Paresis): 0=Normal symmetrical mnt (0), Motor Function-Arms Right: 0=No drift (0), Motor Function-Arms Left: 4=No movement (4), Motor Function-Legs Right: 0=No drift (0), Motor Function- Legs Left: 4=No movement (4), Limb Ataxia: 0=Absent (0), Sensory: 0=Normal:no loss (0), Best Language: 2=Severe aphasia (2), Dysarthria: 2=Severe dysarthr ia (2), Extinction & Inattention: 0=No abnormality (0), Total: 17 Focused Exam Lactate Level 07/23/20 01:38: Lactic Acid Level 1.97 Lactic Acid Level Laboratory Tests Test 07/23/20 01:38 Lactic Acid Level 1.97 MMOL/L (0.50-2.00) Procedures/Interventions Suture Size: 5-0 F5-2 Progress/Results/Core Measures Results/Orders Lab Results Laboratory Tests Test 07/23/20 01:06 07/23/20 01:38 07/23/20 02:05 Range/Units White Blood Count 7.7 4.3-11.0 10^3/uL Red Blood Count 4.95 4.35-5.85 10^6/uL Hemoglobin 13.6 13.3-17.7 G/DL Hematocrit 44 40-54 % Mean Corpuscular Volume 88 80-99 FL Mean Corpuscular Hemoglobin 27 25-34 PG Mean Corpuscular Hemoglobin Concent 31 L 32-36 G/DL Red Cell Distribution Width 14.6 H 10.0-14.5 % Platelet Count 212 130-400 10^3/uL Mean Platelet Volume 9.6 7.4-10.4 FL Immature Granulocyte % (Auto) 0 % Neutrophils (%) (Auto) 65 42-75 % Lymphocytes (%) (Auto) 16 12-44 % Monocytes (%) (Auto) 10 0-12 % Eosinophils (%) (Auto) 7 0-10 % Basophils (%) (Auto) 1 0-10 % Neutrophils # (Auto) 5.0 1.8-7.8 X 10^3 Lymphocytes # (Auto) 1.2 1.0-4.0 X 10^3 Monocytes # (Auto) 0.8 0.0-1.0 X 10^3 Eosinophils # (Auto) 0.6 H 0.0-0.3 10^3/uL Basophils # (Auto) 0.1 0.0-0.1 10^3/uL Immature Granulocyte # (Auto) 0.0 0.0-0.1 10^3/uL Prothrombin Time 13.4 12.2-14.7 SEC INR Comment 1.0 0.8-1.4 Activated Partial Thromboplast Time 31 24-35 SEC Sodium Level 139 135-145 MMOL/L Potassium Level 4.0 3.6-5.0 MMOL/L Chloride Level 107 98-107 MMOL/L Carbon Dioxide Level 22 21-32 MMOL/L Anion Gap 10 5-14 MMOL/L Blood Urea Nitrogen 12 7-18 MG/DL Creatinine 1.19 0.60-1.30 MG/DL Estimat Glomerular Filtration Rate 60 BUN/Creatinine Ratio 10 Glucose Level 106 H 70-105 MG/DL Calcium Level 9.2 8.5-10.1 MG/DL Corrected Calcium 9.2 8.5-10.1 MG/DL Total Bilirubin 0.5 0.1-1.0 MG/DL Aspartate Amino Transf (AST/SGOT) 28 5-34 U/L Alanine Aminotransferase (ALT/SGPT) 10 0-55 U/L Alkaline Phosphatase 92 40-136 U/L Troponin I < 0.30 <0.30 NG/ML Total Protein 7.7 6.4-8.2 GM/DL Albumin 4.0 3.2-4.5 GM/DL Serum Alcohol < 10 <10 MG/DL Lactic Acid Level 1.97 0.50-2.00 MMOL/L Urine Opiates Screen NEGATIVE NEGATIVE Urine Oxycodone Screen NEGATIVE NEGATIVE Urine Methadone Screen NEGATIVE NEGATIVE Urine Propoxyphene Screen NEGATIVE NEGATIVE Urine Barbiturates Screen NEGATIVE NEGATIVE Ur Tricyclic Antidepressants Screen POSITIVE H NEGATIVE Urine Phencyclidine Screen NEGATIVE NEGATIVE Urine Amphetamines Screen NEGATIVE NEGATIVE Urine Methamphetamines Screen NEGATIVE NEGATIVE Urine Benzodiazepines Screen NEGATIVE NEGATIVE Urine Cocaine Screen NEGATIVE NEGATIVE Urine Cannabinoids Screen NEGATIVE NEGATIVE My Orders Orders - ROVENSTINE,LINDSEY L DO Ct Head Wo (07/23/20 01:17) Ekg Tracing (07/23/20 01:19) Cbc With Automated Diff (07/23/20 01:19) Comprehensive Metabolic Panel (07/23/20 01:19) Troponin I Fs (07/23/20 01:19) Protime With Inr (07/23/20 01:19) Partial Thromboplastin Time (07/23/20 01:19) Alcohol (07/23/20 01:19) Drug Screen Stat (Urine) (07/23/20 01:19) Lactic Acid Analyzer (07/23/20 01:19) Ed Iv/Invasive Line Start (07/23/20 01:19) Lorazepam Injection (Ativan Injection) (07/23/20 02:00) Levetiracetam Injection (Keppra Injectio (07/23/20 09:00) Ct Angio Head W (07/23/20 02:08) Levetiracetam Injection (Keppra Injectio (07/23/20 02:11) Ns (Ivpb) (Sodium Chloride 0.9% Ivpb Bag (07/23/20 02:16) Ns Iv 500 Ml (Sodium Chloride 0.9%) (07/23/20 02:30) Medications Given in ED Current Medications Medications Dose Ordered Sig/Mac Route Start Time Stop Time Status Last Admin Dose Admin Levetiracetam 500 mg STK-MED ONCE IV 07/23/20 02:11 07/23/20 02:15 DC 07/23/20 02:38 500 MG Lorazepam 0.5 mg ONCE ONCE IVP 07/23/20 02:00 07/23/20 02:01 DC 07/23/20 02:28 1 MG Vital Signs/I&O 07/23/20 01:00 Temp 36.7 Pulse 113 Resp 27 B/P (MAP) 170/95 (120) Pulse Ox 92 O2 Delivery Room Air Progress Progress Note : Progress Note Talked to patients family prior to transfer to [facility], still not much History and unknown "code status". Initial ECG Impression Date: Jul 23, 2020 Initial ECG Impression Time: 01:50 Initial ECG Rate: 110 Initial ECG Rhythm: S.Tach Initial ECG Intervals: Normal Diagnostic Imaging Diagonstic Imaging: CT Plain Films/CT/US/NM/MRI: head Comments No obvious hemorrhage or apparent cortical infarct. Involutional changes w small vessel disease. Encephalomalacia R occipital parietal lobe Departure Impression Primary Impression: Acute cerebrovascular accident (CVA) Disposition: 02 XFER SHT-TRM HOSP Condition: Critical Transfer Transfer Reason: Exceeds level of care Time Spoke to Accepting Phy: 01:55 Transfer Progress Notes 0155- Spoke to [facility] Dr Lopez who accepts for transfer- 1439- accepting Dr Escoto advised to start Keppra and get CTA Departure-Patient Inst. Referrals: MAXIMINO FIELDS MD (PCP/Family) Primary Care Physician LINDSEY MARIN DO Jul 23, 2020 01:27
[2020-07-23 01:44] LABS: BASOPHILS % (AUTO) 1 % (0-10); EOSINOPHILS % (AUTO) 7 % (0-10); HEMATOCRIT 44 % (40-54); HEMOGLOBIN 13.6 G/DL (13.3-17.7); LYMPHOCYTES % (AUTO) 16 % (12-44); MEAN CORPUSCULAR HEMOGLOBIN 27 PG (25-34); MEAN CORPUSCULAR HGB CONC 31 G/DL (32-36); MEAN CORPUSCULAR VOLUME 88 FL (80-99); MEAN PLATELET VOLUME 9.6 FL (7.4-10.4); MONOCYTES % (AUTO) 10 % (0-12); NEUTROPHILS % (AUTO) 65 % (42-75); PLATELET COUNT 212 10^3/uL (130-400); WHITE BLOOD COUNT 7.7 10^3/uL (4.3-11.0)
[2020-07-23 01:45] LABS: BASOPHILS # (AUTO) 0.1 10^3/uL (0.0-0.1); EOSINOPHILS # (AUTO) 0.6 10^3/uL (0.0-0.3); LYMPHOCYTES # (AUTO) 1.2 X 10^3 (1.0-4.0); MONOCYTES # (AUTO) 0.8 X 10^3 (0.0-1.0)
[2020-07-23 01:58] LABS: PROTHROMBIN TIME PATIENT 13.4 SEC (12.2-14.7)
[2020-07-23] MEDS ORDERED: LORazepam INJ 2 MG/ML (ATIVAN) VIAL IVP ONE (02:00)
[2020-07-23 02:07] LABS: BUN/CREATININE RATIO 10; CARBON DIOXIDE 22 MMOL/L (21-32); CHLORIDE 107 MMOL/L (98-107); CREATININE SERUM 1.19 MG/DL (0.60-1.30); GFR ESTIMATED 60; SODIUM 139 MMOL/L (135-145)
[2020-07-23 02:08] LABS: ALANINE AMINOTRANSFERASE 10 U/L (0-55); ALKALINE PHOSPHATASE 92 U/L (40-136); BILIRUBIN,TOTAL 0.5 MG/DL (0.1-1.0); CALCIUM 9.2 MG/DL (8.5-10.1); GLUCOSE 106 MG/DL (70-105); TOTAL PROTEIN 7.7 GM/DL (6.4-8.2)
[2020-07-23] MEDS ORDERED: LEVETIRACETAM 500 MG/5 ML (KEPPRA) VIAL IV ONE (02:11)
[2020-07-23] MEDS ORDERED: NS (IVPB) 100 ML ONE (02:16)
[2020-07-23 02:25] LABS: AMPHETAMINE SCREEN, URINE NEGATIVE (NEGATIVE); BARBITURATE SCREEN URINE NEGATIVE (NEGATIVE); BENZODIAZEPINES SCREEN URINE NEGATIVE (NEGATIVE); CANNABINOID SCREEN, URINE NEGATIVE (NEGATIVE); COCAINE SCREEN URINE NEGATIVE (NEGATIVE); METHADONE STAT NEGATIVE (NEGATIVE); METHAMPHETAMINE SCREEN URINE S NEGATIVE (NEGATIVE); OPIATE SCREEN URINE NEGATIVE (NEGATIVE); OXYCODONE STAT NEGATIVE (NEGATIVE); PROPOXYPHENE STAT NEGATIVE (NEGATIVE); TRICYCLIC ANTIDEPRESSANTS SCRE POSITIVE (NEGATIVE)
[2020-07-23] MEDS ORDERED: NS IV 500 ML 500 ML IV SCH (02:30)
[2020-07-23 03:30] VITALS: BP 151/63
--- NOTE | 2020-07-23 06:18 | Diagnostic Imaging Report ---
PROCEDURE: CT head without contrast. TECHNIQUE: Multiple contiguous axial images were obtained through the brain without the use of intravenous contrast. Auto Exposure Controls were utilized during the CT exam to meet ALARA standards for radiation dose reduction. INDICATION: Confusion, mental status changes COMPARISON: 07/21/2020 FINDINGS: Please note motion artifact is present. There is a chronic area of encephalomalacia in the right posterior parietal-occipital lobe. No new focus of acute ischemia, hemorrhage or midline shift is seen. The ventricular size is stable. There is no skull fracture. IMPRESSION: Limited examination due to motion. No acute intracranial abnormalities. Agree with preliminary report. Dictated by: Dictated on workstation # [id number]
[2020-07-23] MEDS ORDERED: LEVETIRACETAM INJECTION 1,000 MG in NS (IVPB) 100 ML IV SCH (09:00)
== END 2020-07-23 03:48 | disposition short-term general hospital (02) ==
LOC: EDUNIT# 00:44 → ER FS 00:47
DX: I63.9 Cerebral infarction, unspecified (principal); R29.717 NIHSS score 17; Z88.0 Allergy status to penicillin; Z88.2 Allergy status to sulfonamides
CPT/HCPCS: 36415; 51702; 70450; 80053; 80306; 80320; 83605; 84484; 85025; 85610; 85730; 99291

== ENCOUNTER 2021-02-12 15:15 | Emergency (ER) | payer OTHER ==
[~2021-02-12] VITALS: Ht 188 cm; Wt 93.0 kg
--- NOTE | 2021-02-12 15:20 | ED Fall/Injury ---
General Stated Complaint: FELL,NECK/BACK PAIN History of Present Illness Date Seen by Provider: Feb 12, 2021 Time Seen by Provider: 15:19 Initial Comments 75-year-old male presents following a fall. Patient complains of pain in his lower back, his right lateral neck. Patient fell onto his left side. He has abrasions on his elbow but denies any decreased range of motion or pain. Patient reports he frequently has dizziness and balance issues that comes and goes with good days and bad days. He was supposed to use a walker and was not today. He denies any numbness tingling, vision changes, bowel or bladder issues or any other new acute symptoms. Allergies and Home Medications Allergies Uncoded Allergies: PENICILLIN (Adverse Reaction, Unknown, 12/11/18) SULFA (Adverse Reaction, Unknown, 12/11/18) Home Medications Ciprofloxacin HCl 250 Mg Tablet, 250 MG PO BID Prescribed by: JUSTIN GARCIA on 11/13/19 0439 Cyclobenzaprine HCl 10 Mg Tablet, 10 MG PO Q8H PRN for SPASMS Prescribed by: TONY DALTON on 06/15/19 1852 Hydrocodone/Acetaminophen 1 Each Tablet, 1 TAB PO Q4-6HR Prescribed by: JING CARDONA on 04/04/19 0014 Hydrocodone/Acetaminophen 1 Each Tablet, 1 TAB PO Q6H Prescribed by: LINDSEY MARIN on 07/09/19 1042 Hydrocodone/Acetaminophen 1 Each Tablet, 0.5-1 EACH PO Q6H Prescribed by: JUSTIN GARCIA on 11/13/19 0439 Tramadol HCl 50 Mg Tablet, 50 MG PO Q6H PRN for PAIN Prescribed by: PRABHA DOLAN on 04/16/197 Patient Home Medication List Home Medication List Reviewed: Yes Review of Systems Review of Systems Constitutional: dizziness Eyes: No Symptoms Reported Ears, Nose, Mouth, Throat: no symptoms reported Respiratory: No cough, No short of breath Cardiovascular: No chest pain, No palpitations Gastrointestinal: no symptoms reported Genitourinary: no symptoms reported Musculoskeletal: see HPI, back pain, neck pain (Right lateral, no vertebral or midline) Skin: other (Abrasion, left elbow) Psychiatric/Neurological: No Symptoms Reported Past Acqtnpi-Bfahem-[place] Hx Seasonal Allergies Seasonal Allergies: No Past Medical History Surgeries: Yes (back surgery, heart transplant) Respiratory: No Cardiac: Yes (heart transplant) Hypertension Neurological: No Genitourinary: No Gastrointestinal: No Musculoskeletal: No Endocrine: No HEENT: No Loss of Vision: Left Cancer: No Psychosocial: No Integumentary: No Blood Disorders: No Physical Exam Vital Signs Vital Signs - First Documented Capillary Refill : Height, Weight, BMI Height: 6'2.00" Weight: 230lbs. oz. 104.046251aq; 29.00 BMI Method:Stated General Appearance: WD/WN, no apparent distress HEENT: PERRL/EOMI, pharynx normal Neck: full range of motion, supple, tender lateral; No tender midline Cardiovascular: normal peripheral pulses, regular rate, rhythm Respiratory: lungs clear, normal breath sounds Gastrointestinal: non tender, soft Back: no vertebral tenderness, other (Lower back tenderness) Extremities: normal range of motion, non-tender Neurologic/Psychiatric: alert, normal mood/affect, oriented x 3 Skin: other (Small abrasions left elbow) Procedures/Interventions Suture Size: 5-0 F5-2 Progress/Results/Core Measures Results/Orders My Orders Orders - KYLEE MEDRANO DO Ct Head/Cervical Spine Wo (02/12/21 15:27) Lumbar Spine 2 Or 3 View (02/12/21 15:27) Vital Signs/I&O 02/12/21 02/12/21 02/12/21 15:25 15:25 16:32 Temp 37.0 37.0 Pulse 93 93 86 Resp 18 18 16 B/P (MAP) 143/91 (108) 143/91 (108) 121/70 Pulse Ox 94 94 94 O2 Delivery Room Air Room Air Room Air Progress Progress Note : Progress Note Patient was offered labs and extended work-up for his dizziness and off balance however he declined since he states that he frequently has and it comes and goes. Reports he recently saw his primary care provider and his labs and his evaluation was good. Diagnostic Imaging Diagonstic Imaging: CT Plain Films/CT/US/NM/MRI: c-spine, head Comments COMPARISON: CT head 07/23/2020 FINDINGS: HEAD: Mild diffuse cerebral volume loss with proportional enlargement of the ventricles and sulci. Mild hypodensities throughout the supratentorial white matter of both cerebral hemispheres. There is chronic encephalomalacia within the right parieto-occipital lobes with expected dilatation of the right lateral ventricle. No acute intracranial hemorrhage or abnormal extra-axial fluid collections are present. Calcification of the intracranial ICAs. No hyperdense vessel. The calvarium is intact. The mastoid air cells are clear. The visualized paranasal sinuses are clear. Surgical changes from bilateral cataract repair. C-SPINE: Vertebral body heights are preserved. There is straightening of the normal cervical lordosis. No acute fracture, dislocation, or destructive osseous process. There is multilevel facet hypertrophy without perched facets. There is severe loss of disc height at C5-C6. There is multilevel cervical spondylosis. The paraspinous soft tissues are normal. The visualized thyroid gland is normal. The visualized lung apices are normal. IMPRESSION: 1. No acute intracranial abnormality. 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 2. Multilevel degenerative changes of the cervical spine without acute osseous abnormality. Reviewed: Reviewed by Me, Reviewed/Discussed Diagonstic Imaging: Xray Plain Films/CT/US/NM/MRI: other Comments No acute lumbar fracture Reviewed: Reviewed by Me, Reviewed/Discussed Departure Impression Primary Impression: Fall Qualified Codes: W19.XXXA - Unspecified fall, initial encounter Additional Impressions: Cervical muscle strain Qualified Codes: S16.1XXA - Strain of muscle, fascia and tendon at neck level, initial encounter Lumbar contusion Qualified Codes: S30.0XXA - Contusion of lower back and pelvis, initial encounter Disposition: 01 HOME, SELF-CARE Condition: Stable Departure-Patient Inst. Referrals: MAXIMINO FIELDS MD (PCP/Family) Primary Care Physician Patient Instructions: Minor Contusion ED, Cervical Muscle Strain (DC), Preventing Falls Add. Discharge Instructions: Bfge-dam-khqqsta Voltaren(diclofenac) topical gel daily to affected areas or as directed on package Ibuprofen or Tylenol as needed for pain Follow-up with your primary care provider if symptoms or not improving in the next couple days. KYLEE MEDRANO DO Feb 12, 2021 15:20
--- NOTE | 2021-02-12 16:14 | Diagnostic Imaging Report ---
EXAMINATION: CT head and CT cervical spine without contrast. TECHNIQUE: Multiple contiguous axial images were obtained through the brain and cervical spine without the use of intravenous contrast. Sagittal and coronal reformations through the cervical spine were then performed. All CT scans use one or more of the following dose optimizing techniques: automated exposure control, MA and/or KvP adjustment based on patient size and exam type or iterative reconstruction. HISTORY: Fall onto head and neck with pain COMPARISON: CT head 07/23/2020 FINDINGS: HEAD: Mild diffuse cerebral volume loss with proportional enlargement of the ventricles and sulci. Mild hypodensities throughout the supratentorial white matter of both cerebral hemispheres. There is chronic encephalomalacia within the right parieto-occipital lobes with expected dilatation of the right lateral ventricle. No acute intracranial hemorrhage or abnormal extra-axial fluid collections are present. Calcification of the intracranial ICAs. No hyperdense vessel. The calvarium is intact. The mastoid air cells are clear. The visualized paranasal sinuses are clear. Surgical changes from bilateral cataract repair. C-SPINE: Vertebral body heights are preserved. There is straightening of the normal cervical lordosis. No acute fracture, dislocation, or destructive osseous process. There is multilevel facet hypertrophy without perched facets. There is severe loss of disc height at C5-C6. There is multilevel cervical spondylosis. The paraspinous soft tissues are normal. The visualized thyroid gland is normal. The visualized lung apices are normal. IMPRESSION: 1. No acute intracranial abnormality. 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 2. Multilevel degenerative changes of the cervical spine without acute osseous abnormality. Dictated by: Dictated on workstation # [id number]
--- NOTE | 2021-02-12 16:17 | Diagnostic Imaging Report ---
CLINICAL INDICATIONS: Patient status post fall with pain. EXAM: X-ray of the lumbar spine, 3 views. COMPARISON: X-ray of the lumbar spine dated 06/11/2019. FINDINGS: There is no interval acute lumbar spine fracture. There is grade 1 anterolisthesis of L5 on S1. There are hypertrophic spurs throughout the lumbar spine and facet arthropathy. There is mild to moderate loss of disk space height at the L4-L5 level and severe loss at the L5-S1 level which has minimally progressed. Sequela joints show no significant abnormality. IMPRESSION: There is lumbar spine degenerative disease with no interval acute fracture. Dictated by: Dictated on workstation # [id number]
[2021-02-12 16:32] VITALS: BP 121/70
== END 2021-02-12 16:32 | disposition home or self-care (01) ==
LOC: EDUNIT# 15:15 → ER FS 15:17
DX: S16.1XXA Strain of muscle, fascia and tendon at neck level, initial encounter (principal); S30.0XXA Contusion of lower back and pelvis, initial encounter; S50.312A Abrasion of left elbow, initial encounter; I10 Essential (primary) hypertension; W19.XXXA Unspecified fall, initial encounter
CPT/HCPCS: 70450; 72100; 72125

== ENCOUNTER 2021-05-10 14:05 | Emergency (ER) | payer OTHER ==
[~2021-05-10] VITALS: Ht 188 cm; Wt 95.3 kg
--- OUTSIDE RECORDS SUMMARY | 2021-05-10 14:11 | XMS REPORT | Clinical Summary ---
Author Author [facility] Organization [facility] Address Unknown Phone Unavailable Care Team Providers Care Skirt Clipper Name Role Phone Mathew Pratt MD Unavailable Omar Azul RN Unavailable Unavailable Royal Galvez RN Unavailable [facility]available [facility] Source Comments Some departments are not documenting in the electronic medical record. If you d o not see the information that you expected, contact Release of Information in [facility] Information Management department at [phone] for further assistan ce in locating additional records.[facility] Allergies Comments Active Allergy Reactions Severity Noted Date Allergy recorded in SMS: Bactrim Sulfamethoxazole-Trimetho HIVES 05/21/2003 prim Lisinopril UNKNOWN Low 03/31/2014 Allergy recorded in SMS: Penicillin~Reactions: HIVES Penicillins Medium 05/21/2003 Pravastatin UNKNOWN 03/31/2014 Medications End Date Status Medication Sig Dispensed Refills Start Date Active potassium chloride SR Take 20 mEq 0 (K-DUR) 10 mEq tablet by mouth daily. Active atorvastatin (LIPITOR) 80 Take 40 mg by 0 mg tablet mouth at bedtime daily. Active tacrolimus (PROGRAF) 0.5 Take 1 mg by 0 mg capsule mouth twice daily. Active sirolimus (RAPAMUNE) 1 mg Take 1 mg by 0 tablet mouth daily. Active allopurinoL (ZYLOPRIM) Take 100 mg 0 100 mg tablet by mouth daily. Take with food. Active clopiDOGrel (PLAVIX) 75 Take 75 mg by 0 mg tablet mouth daily. Active melatonin 3 mg tab Take 3 mg by 0 mouth at bedtime daily. Active omeprazole DR (PRILOSEC) Take 20 mg by 0 20 mg capsule mouth daily before breakfast. Active QUEtiapine (SEROQUEL) 300 Take 300 mg 0 mg tablet by mouth at bedtime daily. Active sertraline (ZOLOFT) 25 mg one tablet by 0 tablet Per NG tube 1 route daily. Active divalproex (DEPAKOTE EC) Take one 270 tablet [address] tablet tablet by 1 mouth twice daily. Take with food. Active aspirin 81 mg chewable Chew one 90 tablet 0 tablet tablet by 1 mouth daily. Take with food. Active losartan (COZAAR) 25 mg Take one 0 tablet tablet by 1 mouth daily. Active Problems Problem Noted Date PTSD (post-traumatic stress disorder) 02/28/2019 Overview: Formatting of this note might be differ ent from the original. a. Managed by "" Squamous cell skin cancer 02/28/2019 Mural thrombus of heart 01/23/2019 Overview: Formatting of this note might be differ ent from the original. a. 01.23.2019 - New dx --> Eliquis starte d Aphasia 04/03/2014 Stroke 03/31/2014 Overview: Formatting of this note might be differ ent from the original. a. 2014 - TPA give @ [facility] --> home o n aspirin --> recurrence 24 hrs later --> now on Plavix --> no recurren ce TIA (transient ischemic attack) 03/24/2014 Overview: Formatting of this note might be differ ent from the original. a. 2014 - TPA give @ [facility] --> home o n aspirin --> recurrence 24 hrs later --> now on Plavix --> no recurren ce B. 01.29.2019 - DC'd Plavix --> Eliquis s tarted, due to mural thrombus Hyperlipidemia 03/05/2013 Overview: Formatting of this note might be differ ent from the original. mary ann Lipitor HTN (hypertension) 03/05/2013 Cardiomyopathy 03/05/2013 CHF (congestive heart failure) 03/05/2013 DJD (degenerative joint disease) 03/05/2013 Esophagitis 03/05/2013 Overview: Formatting of this note might be differ ent from the original. a. Prilosec 20 mg QD Gout 03/05/2013 Overview: Formatting of this note might be differ ent from the original. a. Allopurinol 200 mg QD Sleep apnea 03/05/2013 Overview: Formatting of this note might be differ ent from the original. a. Using CPAP Gastroparesis 03/05/2013 Tibial plateau fracture 03/05/2013 PSA elevation 02/28/2009 Overview: Formatting of this note might be differ ent from the original. a. 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 mary ann 12.11.2008 - due to ICM @ [facility] fol lowing a VAD placed @ [facility] Immunosuppression 12/11/2008 Overview: Formatting of this note might be differ ent from the original. a. FK & CellCept --> OFF Prednisone Vitamin D deficiency 02/29/2008 Immunizations Name Administration Dates Next Due Pneumococcal Vaccine 2011 (23-Fany Adult) Surgical History Surgery Date Site/Laterality Comments HX CARPAL TUNNEL RELEASE ELBOW SURGERY CARDIAC SURGERY HERNIA REPAIR KNEE SURGERY HEART TRANSPLANT 12/11/2008 [facility] Medical History Medical History Date Comments CAD (coronary artery disease) Heart transplanted (HCC) 12/11/2008 [facility] History of CHF (congestive heart failure) HTN (hypertension) Fracture Immunosuppression (HCC) 12/11/2008 FK & CellCept --> OFF Prednisone Family History Medical History Relation Name Comments Cancer Mother Stroke Mother Relation Name Status Comments Mother Social History Date Tobacco Use Types Packs/Day Years Used Never Smoker Smokeless Tobacco: Never Used Comments Alcohol Use Standard Drinks/Week No 0 (1 standard drink = 0.6 o z pure alcohol) Sex Assigned at Date Recorded Not on file Last Filed Vital Signs Reading Time Taken Comments Vital Sign 127/66 07/29/2020 1:15 PM [employer] Blood Pressure 89 07/29/2020 1:15 PM [employer] Pulse 36.8 C (98.2 F) 07/29/2020 1:15 PM [employer] Temperature - - Respiratory Rate 95% 07/29/2020 1:15 PM [employer] DES[employer]ER Oxygen Saturation - - Inhaled Oxygen Concentration 93.1 kg (205 lb 4 oz) 07/24/2020 6:00 AM [employer] Weight 188 cm (6' 2.02") 07/24/2020 6:00 AM [employer] Height 26.34 07/24/2020 6:00 AM [employer] DES[employer] Body Mass Index Plan of Treatment Health Maintenance Due Date Last Done Comments MEDICARE ANNUAL WELLNESS 1945 VISIT DTAP/TDAP VACCINES (1 - 1964 Tdap) HEPATITIS C SCREENING 1964 PHYSICAL (COMPREHENSIVE) 1964 EXAM COLORECTAL CANCER 1996 SCREENING SHINGLES RECOMBINANT 1996 VACCINE (1 of 2) PNEUMONIA (PPSV23) 2012 2011 VACCINE (2 of 2 - PCV13) INFLUENZA VACCINE 02/21/2021 Goals Goal Patient Associated Recent Progress Patient-Stat Aut hor Goal Type Problems ed? Recover from illness Hospital Yes Carlos Yu, RN Note: 'To get better and be able to go home" Results Not on filefrom Last 3 Months Insurance Type Payer Benefit Subscriber ID Effective Phone Address Plan / Dates Group HALIE [place] [id number] 2020-P resent [facility] (Home) [place], [place] [address] Advance Directives Patient Operations Staff Specialist Security Explanation Type Date Recorded Advance 03/31/2014 1:26 PM Directive/DPOA Date Inactivated Comments Code Status Date Activated 07/29/2020 5:20 PM Full Code 07/23/2020 5:44 AM Provider has discussed Code Status No, more discussi on w/Patient or Family? needed 2014 6:04 PM Full Code 03/31/2014 6:19 PM Provider has discussed Code Status No, more discussi on w/Patient or Family? needed 03/07/2013 5:33 PM Full Code 03/05/2013 10:44 PM Provider has discussed Code Status No, discussion no t w/Patient or Family? necessary based on Dx
--- NOTE | 2021-05-10 14:14 | ED Fall/Injury ---
General Chief Complaint: Hip/Pelvic Problems Stated Complaint: LT HIP INJ Source: patient, EMS, old records History of Present Illness Date Seen by Provider: May 10, 2021 Time Seen by Provider: 14:09 Initial Comments 76 yo male presenting by EMS from home after reported fall from slipping in water on the floor yesterday when he went in to the bathroom. He reports losing consciousness and did not get up until today when was able to get up off the floor and call for assistance. He reports not having his regular medicine since 05/08 due to falling early Monday and being on the floor until this afternoon. He has pain to back of head, neck, left hip. He was able to ambulate to the cot and then walked from ambulance bay to the room in the ED. He denies fever or chills. He did complain of having loose diarrhea stools at home. He has no abdominal pain, pain with urination, change in vision, chest pain, blood in urine or stools. Occurred: yesterday Severity: moderate Injuries/Pain Location: head, neck, lower extremity (left hip) Context: slipped (in water on the bathroom floor) Loss of Consciousness: prolonged (minutes) (reports falling on Wednesday 05/09 and waking up this afternoon) Associated Symptoms (Fall): No Abdominal Pain, No Chest Pain, No Confusion, No Dizziness; Headache (occiput); No Muscle Spasms, No Nausea/Vomiting; Neck Pain; No Ringing in Ears, No Seizures, No Shortness of Air, No Slurred Speech; Trouble Walking (chronic issue with frequent falls); No Vision Changes Allergies and Home Medications Allergies Uncoded Allergies: PENICILLIN (Adverse Reaction, Unknown, 12/11/18) SULFA (Adverse Reaction, Unknown, 12/11/18) Patient Home Medication List Home Medication List Reviewed: Yes Ciprofloxacin HCl (Ciprofloxacin HCl) 250 Mg Tablet, 250 MG PO BID Prescribed by: JUSTIN GARCIA on 11/13/19 4818 Cyclobenzaprine HCl (Cyclobenzaprine HCl) 10 Mg Tablet, 10 MG PO Q8H PRN for SPASMS Prescribed by: TONY DALTON on 06/15/19 687 Hydrocodone/Acetaminophen (Hydrocodone/Acetaminophen 5 MG/325 MG TAB) 1 Each Tablet, 1 TAB PO Q4-6HR Prescribed by: JING CARDONA on 04/04/19 0014 Hydrocodone/Acetaminophen (Hydrocodone/Acetaminophen 5 MG/325 MG TAB) 1 Each Ta blet, 1 TAB PO Q6H Prescribed by: LINDSEY MARIN on 07/09/19 1042 Hydrocodone/Acetaminophen (Hydrocodone-Acetamin 5-325 mg) 1 Each Tablet, 0.5-1 EACH PO Q6H Prescribed by: JUSTIN GARCIA on 11/13/19 0439 Tramadol HCl (Tramadol HCl) 50 Mg Tablet, 50 MG PO Q6H PRN for PAIN Prescribed by: PRABHA DOLAN on 04/16/19 2135 Review of Systems Review of Systems Constitutional: No chills, No diaphoresis, No dizziness, No fever Eyes: Denies Photophobia, Denies Vision Changes Ears, Nose, Mouth, Throat: denies ear pain, denies ear discharge, denies nose pain, denies nose discharge, denies epistaxis Respiratory: No cough, No hemoptysis, No phlegm, No short of breath, No stridor Cardiovascular: no symptoms reported Gastrointestinal: see HPI; No abdominal pain; diarrhea; No nausea, No vomiting Genitourinary: No dysuria, No hematuria Musculoskeletal: see HPI, joint pain (left hip), neck pain Skin: no symptoms reported Psychiatric/Neurological: See HPI, Headache; Denies Numbness, Denies Paresthesia Past [place]-Yxwtdo-Fnxmsw Hx Seasonal Allergies Seasonal Allergies: No Past Medical History Surgeries: Yes (back surgery, heart transplant) Respiratory: No Cardiac: Yes (heart transplant) Hypertension Neurological: No Genitourinary: No Gastrointestinal: No Musculoskeletal: No Endocrine: No HEENT: No Loss of Vision: Left Cancer: No Psychosocial: No Integumentary: No Blood Disorders: No Physical Exam Vital Signs Vital Signs - First Documented 05/10/21 14:05 Temp 36.4 Pulse 102 Resp 18 B/P (MAP) 135/74 (94) O2 Delivery Room Air Capillary Refill : Height, Weight, BMI Height: 6'2.00" Weight: 230lbs. oz. 104.343715jb; 26.00 BMI Method:Stated General Appearance: other (appears chronically ill. Unkempt) HEENT: PERRL/EOMI, pharynx normal, other (Negative arango sign, negative raccoon sign, no CSF otorrhea or rhinorrhea) Neck: full range of motion, supple, normal inspection, tender lateral (left side) Cardiovascular: normal peripheral pulses, regular rate, rhythm Respiratory: chest non-tender, lungs clear, normal breath sounds Gastrointestinal: normal bowel sounds, non tender, soft, no pulsatile mass Rectal: deferred Back: no vertebral tenderness Extremities: normal range of motion, normal capillary refill, other (pain in left lateral hip and into the groin) Neurologic/Psychiatric: front office developer II-XII nml as tested, no motor/sensory deficits, alert, oriented x 3 Skin: normal color, warm/dry [place] Coma Score Best Eye Response: (4) Open Spontaneously Best Verbal Response: (5) Oriented Best Motor Response: (6) Obeys Commands [place] Total: 15 Procedures/Interventions Suture Size: 5-0 F5-2 Progress/Results/Core Measures Results/Orders Lab Results Laboratory Tests Test 05/10/21 15:20 05/10/21 15:55 05/10/21 19:40 Range/Units White Blood Count 25.6 H 4.3-11.0 10^3/uL Red Blood Count 4.90 4.30-5.52 10^6/uL Hemoglobin 13.7 13.3-17.7 g/dL Hematocrit 42 40-54 % Mean Corpuscular Volume 86 80-99 fL Mean Corpuscular Hemoglobin 28 25-34 pg Mean Corpuscular Hemoglobin Concent 33 32-36 g/dL Red Cell Distribution Width 50.6 H 10.0-14.5 % Platelet Count 169 130-400 10^3/uL Mean Platelet Volume 9.4 9.0-12.2 fL Immature Granulocyte % (Auto) 1 % Neutrophils (%) (Auto) 89 H 42-75 % Lymphocytes (%) (Auto) 2 L 12-44 % Monocytes (%) (Auto) 7 0-12 % Eosinophils (%) (Auto) 0 0-10 % Basophils (%) (Auto) 0 0-10 % Neutrophils # (Auto) 22.9 H 1.8-7.8 X 10^3 Lymphocytes # (Auto) 0.5 L 1.0-4.0 X 10^3 Monocytes # (Auto) 1.8 H 0.0-1.0 X 10^3 Eosinophils # (Auto) 0.0 0.0-0.3 10^3/uL Basophils # (Auto) 0.1 0.0-0.1 10^3/uL Immature Granulocyte # (Auto) 0.3 H 0.0-0.1 10^3/uL Neutrophils % (Manual) 90 % Lymphocytes % (Manual) 2 % Monocytes % (Manual) 4 % Atypical Lymphocytes 4 % Blood Morphology Comment NORMAL Prothrombin Time 15.3 H 12.2-14.7 SEC INR Comment 1.2 0.8-1.4 Activated Partial Thromboplast Time 38 H 24-35 SEC Sodium Level 136 135-145 MMOL/L Potassium Level 3.9 3.6-5.0 MMOL/L Chloride Level 101 98-107 MMOL/L Carbon Dioxide Level 21 21-32 MMOL/L Anion Gap 14 5-14 MMOL/L Blood Urea Nitrogen 24 H 7-18 MG/DL Creatinine 1.77 H 0.60-1.30 MG/DL Estimat Glomerular Filtration Rate 38 BUN/Creatinine Ratio 14 Glucose Level 107 H 70-105 MG/DL Calcium Level 9.2 8.5-10.1 MG/DL Corrected Calcium 9.2 8.5-10.1 MG/DL Total Bilirubin 1.8 H 0.1-1.0 MG/DL Aspartate Amino Transf (AST/SGOT) 32 5-34 U/L Alanine Aminotransferase (ALT/SGPT) 10 0-55 U/L Alkaline Phosphatase 78 40-136 U/L Total Protein 8.0 6.4-8.2 GM/DL Albumin 4.0 3.2-4.5 GM/DL Urine Color YELLOW Urine Clarity CLEAR Urine pH 6.0 5-9 Urine Specific [place] >=1.030 1.016-1.022 Urine Protein 1+ H NEGATIVE Urine Glucose (UA) 3+ H NEGATIVE Urine Ketones TRACE H NEGATIVE Urine Nitrite NEGATIVE NEGATIVE Urine Bilirubin 1+ H NEGATIVE Urine Urobilinogen 0.2 < = 1.0 MG/DL Urine Leukocyte Esterase NEGATIVE NEGATIVE Urine RBC (Auto) 2+ H NEGATIVE Urine RBC 2-5 H /HPF Urine WBC NONE /HPF Urine Squamous Epithelial Cells 0-2 /HPF Urine Crystals NONE /LPF Urine Bacteria FEW H /HPF Urine Casts PRESENT /LPF Urine Hyaline Casts 2-5 H /LPF Urine Mucus MODERATE H /LPF Urine Culture Indicated NO Lactic Acid Level 1.33 0.50-2.00 MMOL/L My Orders Orders - PRABHA DOLAN MD Ct Head/Cervical Spine Wo (05/10/21 14:37) Ct Pelvis Wo (05/10/21 14:37) Ed Iv/Invasive Line Start (05/10/21 14:37) Cbc With Automated Diff (05/10/21 14:37) Comprehensive Metabolic Panel (05/10/21 14:37) Ua Culture If Indicated (05/10/21 14:37) Ekg Tracing (05/10/21 14:37) Monitor-Rhythm Ecg Trace Only (05/10/21 14:37) Protime With Inr (05/10/21 14:37) Partial Thromboplastin Time (05/10/21 14:37) Manual Differential (05/10/21 15:20) Ns Iv 1000 Ml (Sodium Chloride 0.9%) (05/10/21 16:29) Chest 1 View Ap/Pa Only (05/10/21 18:36) Blood Culture (05/10/21 19:13) Urine Culture (05/10/21 19:13) Lactic Acid Analyzer (05/10/21 19:13) Ns Iv 1000 Ml (Sodium Chloride 0.9%) (05/10/21 20:00) Vital Signs/I&O 05/10/21 14:05 Temp 36.4 Pulse 102 Resp 18 B/P (MAP) 135/74 (94) O2 Delivery Room Air Progress Progress Note #1: Progress Note With vague complaint and unable to confirm times he was on the ground will check labs, urine. CT head and cervical spine to check for fracture, stroke, intracr anial hemorrhage, cervical spine fracture. CT pelvis to check for hip fracture or pubic ramus/pelvic fracture. Telemetry monitoring and ECG to evaluate for arrhythmia or ischemia. If he was truly laying on the floor for over 24 hours before waking back up then he would be at risk for stroke, intracranial hemorrhage, rhabdomyolysis, renal failure, electrolyte imbalance. CK is not av ailable here at [place] so will see what his basic labs and renal function show in addition to a UA. Progress Note #2: Progress Note Labs shows elevated white blood cell count to 25.6. He has a left shift with this. His chemistry panel shows elevation of his BUN and creatinine for dehydration and an acute kidney injury. His creatinine today is 1.77. Previous tests had shown it runs around 1.2. He has greater than 1.035 specific gravity to go along with dehydration and concentration of his urine. He does have a few red blood cells present in his urine as well. His CT scans do not demonstrate any acute fracture, intracranial hemorrhage, hip or pelvis fracture. He has been up ambulating to the bathroom here in the ED. He had requested to take his home medicine since he had not taken it since Monday so he was allowed to take his dose of medicines. With his test showing dehydration and some blood in his urine as well as a greatly elevated white blood cell count it is concerning for rhabdomyolysis and dehydration from laying on the floor. He usually follows through the [facility] so will check in with [place] and see if they have any beds or capacity to care for him. Progress Note #3: Time: 17:14 Progress Note D./w Meghan at the [facility] about his condition and request for possible transfer. She requested his chart be faxed and she will review with hospitalist. Progress Note #4: Time: 18:37 [facility] Note [facility] as well as Covid swab. Advised that it would be a several hour process to obtain Creatine Kinase level or Covid swab since those have to be sent by rough rib grader to [facility] to be run. They requested the CXR to see if there was infiltrate to account for his elevated WBC count. Progress Note #5: Time: 19:04 Progress Note d/w Dr. Briones from [facility] and he accepted pt for transfer. He did request to have culture on urine and obtain blood cultures prior to transfer since pt had elevated WBC count. Will continue fluids and cardiac monitoring en route by EMS to [facility]. His chest xray appears to have more failure than infiltrate. He has had no fever, cough, trouble breathing. Will defer antibiotics for now as no clear source of infection and this may still be due to rhabdomyolysis, stress reaction and dehydration. They would like him to come to the ED for Covid testing prior to going to a r o. Progress Note #6: Time: 20:15 Progress Note Patient leaving with EMS for transport to [facility]. His Lactic acid was not elevated as it came back at 1.33. He had orders to continue NS at 100 ml/hr until [facility]. Initial ECG Impression Date: May 10, 2021 Initial ECG Impression Time: 14:52 Initial ECG Rate: 99 Initial ECG Rhythm: Normal Sinus Initial ECG Comparisson: No Previous ECG Available Comment Normal sinus rhythm with a heart rate of 99 bpm. Borderline QT interval prolongation of 373 ms and QTc interval 479 ms. WI interval 138 ms. There is no acute ST elevation. No prior tracing available for comparison. Diagnostic Imaging Diagonstic Imaging: CT Plain Films/CT/US/NM/MRI: c-spine, head Comments [facility] [place], [place] NAME: EMILEE DAVIS [facility] REC#: [id number] PT STATUS: REG ER : 1945 PHYSICIAN: PRABHA DOLAN MD ADMIT DATE: 05/10/21/ER FS Signed Date of Exam:05/10/21 CT HEAD/CERVICAL SPINE WO PROCEDURE: CT head and CT cervical spine without contrast. TECHNIQUE: Multiple contiguous axial images were obtained through the brain and cervical spine without the use of intravenous contrast. Sagittal and coronal reformations through the cervical spine were then performed. Auto Exposure Controls were utilized during the CT exam to meet ALARA standards for radiation dose reduction. INDICATION: Fall. Head and neck pain. COMPARISON: 02/12/2021. FINDINGS: CT head: No large acute territorial ischemia, mass, or hemorrhage. No midline shift or mass effect. Old infarct is seen in the right parietooccipital region. Decreased attenuation is seen in the periventricular and subcortical white matter. The ventricles and cortical sulci are prominent. The basilar cisterns are patent and unremarkable. The calvarium is intact. The visualized paranasal sinuses are clear. CT cervical spine: No acute fracture or dislocation is seen in the cervical spine. No focal osseous lesions. There is straightening of the cervical spine. There is osseous fusion of the C5 and C6 vertebral bodies. Vertebral body heights are well-maintained. The craniocervical junction is well-maintained. Advanced degenerative changes are seen in the cervical spine with disc osteophyte complexes and uncovertebral arthropathy. There is moderate to severe spinal canal stenosis at the C5-C6 level. Soft tissues of the neck are unremarkable. IMPRESSION: 1. No hemorrhage or focal intra-axial mass. No CT evidence of large acute territorial ischemia. 2. No acute fracture or dislocation in the cervical spine. 3. 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 Dictated by: Dictated on workstation # [id number] Dict: 05/10/21 1520 Trans: 05/10/21 1532 [facility] [id number] Interpreted by: ALDO JOY DO Electronically signed by: ALDO JOY DO 05/10/21 1532 Reviewed: Reviewed by Me Diagonstic Imaging: CT Plain Films/CT/US/NM/MRI: pelvis Comments [facility] [place] [place] NAME: EMILEE DAVIS [facility] REC#: [id number] PT STATUS: REG ER : 1945 PHYSICIAN: PRABHA DOLAN MD ADMIT DATE: 05/10/21/ER FS Signed Date of Exam:05/10/21 CT PELVIS WO PROCEDURE: CT pelvis without contrast. TECHNIQUE: Multiple contiguous axial images were obtained through the pelvis without the use of intravenous contrast. Sagittal and coronal reformations were performed. Auto Exposure Controls were utilized during the CT exam to meet ALARA standards for radiation dose reduction. INDICATION: Falls. Pelvic pain. Bladder incontinence. COMPARISON: 11/13/2019. FINDINGS: No acute fracture or dislocation is seen in the pelvis and bilateral hips. Alignment of the hips is anatomic. Degenerative changes are seen in the bilateral femoral acetabular joints with marginal osteophytes, joint space narrowing, and subchondral sclerosis. No evidence of joint effusion in the hips. The bilateral SI joints demonstrate normal alignment. The pubic symphysis is intact. The included lower lumbar spine demonstrates no evidence of acute fracture. There is grade 1 anterolisthesis of L5 on S1, similar to the prior exam. No focal osseous lesions are seen in the pelvis. The prostate is enlarged measuring 5.3 cm in transverse dimension, similar to the prior exam. The urinary bladder is nondistended. No evidence of bladder mass or bladder calculi. The included loops of bowel are nondistended. No free fluid or free air is seen in the abdomen and pelvis. There is calcified aortic and iliac atherosclerotic plaque without aneurysm. IMPRESSION: 1. No acute fracture or dislocation in the pelvis and bilateral hips. 2. Prostatomegaly. This is similar to the prior exam. 3. 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 Dictated by: Dictated on workstation # [id number] Dict: 05/10/21 1535 Trans: 05/10/21 1548 [facility] [id number] Interpreted by: ALDO JOY DO Electronically signed by: ALDO JOY DO 05/10/21 1548 Reviewed: Reviewed by Me Diagonstic Imaging: Xray Plain Films/CT/US/NM/MRI: chest Comments NAME: EMILEE DAVIS [facility] REC#: [id number] PT STATUS: REG ER : 1945 PHYSICIAN: PRABHA DOLAN MD ADMIT DATE: 05/10/21/ER FS Signed Date of Exam:05/10/21 CHEST 1 VIEW AP/PA ONLY EXAMINATION: Chest 1 view HISTORY: Elevated WBC. COMPARISON: 04/03/2019. 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 There is prominence of the central pulmonary vasculature. Hazy opacities are seen in the bilateral lung bases. No pleural effusion or pneumothorax. IMPRESSION: 1. Cardiomegaly with central pulmonary vascular congestion. 2. Hazy opacities in the bilateral lung bases, which may represent edema, infection or atelectasis. Dictated by: Dictated on workstation # [id number] Dict: 05/10/21 1842 Trans: 05/10/21 184 [facility] [id number] Interpreted by: ALDO JOY DO Electronically signed by: ALDO JOY DO 05/10/21 184 Reviewed: Reviewed by Me Focused Exam Lactate Level 05/10/21 19:40: Lactic Acid Level 1.33 Lactic Acid Level Laboratory Tests Test 05/10/21 19:40 Lactic Acid Level 1.33 MMOL/L (0.50-2.00) Departure Impression Primary Impression: Acute renal injury Additional Impressions: Leukocytosis Qualified Codes: D72.829 - Elevated white blood cell count, unspecified Fall in home Qualified Codes: W19.XXXA - Unspecified fall, initial encounter; Y92.009 - Unspecified place in unspecified non-institutional (private) residence as the place of occurrence of the external cause Left hip pain Rhabdomyolysis Qualified Codes: M62.82 - Rhabdomyolysis Disposition: 02 XFER SHT-TRM HOSP Condition: Stable Transfer Transfer Reason: Patient preference Time Spoke to Accepting Phy: 19:04 Transfer Progress Notes d/w Dr. Briones from [facility] and he accepted pt for transfer. He did request urine culture, Blood cultures and lactic acid to be drawn before he is transferred but he will have Meghan with the transfer center at [facility] arrange a room and call back to let us know what room he is going to at the [facility]. Transfer Facility: [facility] Method of Transfer: EMS Departure-Patient Inst. Referrals: MAXIMINO FIELDS MD (PCP/Family) Primary Care Physician PRABHA DOLAN MD May 10, 2021 14:14
[2021-05-10 15:31] LABS: HEMATOCRIT 42 % (40-54); HEMOGLOBIN 13.7 g/dL (13.3-17.7); MEAN CORPUSCULAR HEMOGLOBIN 28 pg (25-34); MEAN CORPUSCULAR HGB CONC 33 g/dL (32-36); MEAN CORPUSCULAR VOLUME 86 fL (80-99); WHITE BLOOD COUNT 25.6 10^3/uL (4.3-11.0)
--- NOTE | 2021-05-10 15:31 | Diagnostic Imaging Report ---
PROCEDURE: CT head and CT cervical spine without contrast. TECHNIQUE: Multiple contiguous axial images were obtained through the brain and cervical spine without the use of intravenous contrast. Sagittal and coronal reformations through the cervical spine were then performed. Auto Exposure Controls were utilized during the CT exam to meet ALARA standards for radiation dose reduction. INDICATION: Fall. Head and neck pain. COMPARISON: 02/12/2021. FINDINGS: CT head: No large acute territorial ischemia, mass, or hemorrhage. No midline shift or mass effect. Old infarct is seen in the right parietooccipital region. Decreased attenuation is seen in the periventricular and subcortical white matter. The ventricles and cortical sulci are prominent. The basilar cisterns are patent and unremarkable. The calvarium is intact. The visualized paranasal sinuses are clear. CT cervical spine: No acute fracture or dislocation is seen in the cervical spine. No focal osseous lesions. There is straightening of the cervical spine. There is osseous fusion of the C5 and C6 vertebral bodies. Vertebral body heights are well-maintained. The craniocervical junction is well-maintained. Advanced degenerative changes are seen in the cervical spine with disc osteophyte complexes and uncovertebral arthropathy. There is moderate to severe spinal canal stenosis at the C5-C6 level. Soft tissues of the neck are unremarkable. IMPRESSION: 1. No hemorrhage or focal intra-axial mass. No CT evidence of large acute territorial ischemia. 2. No acute fracture or dislocation in the cervical spine. 3. 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 Dictated by: Dictated on workstation # [id number]
[2021-05-10 15:32] LABS: BASOPHILS # (AUTO) 0.1 10^3/uL (0.0-0.1); BASOPHILS % (AUTO) 0 % (0-10); EOSINOPHILS % (AUTO) 0 % (0-10); LYMPHOCYTES # (AUTO) 0.5 X 10^3 (1.0-4.0); LYMPHOCYTES % (AUTO) 2 % (12-44); MEAN PLATELET VOLUME 9.4 fL (9.0-12.2); MONOCYTES # (AUTO) 1.8 X 10^3 (0.0-1.0); MONOCYTES % (AUTO) 7 % (0-12); NEUTROPHILS # (AUTO) 22.9 X 10^3 (1.8-7.8); NEUTROPHILS % (AUTO) 89 % (42-75); PLATELET COUNT 169 10^3/uL (130-400)
[2021-05-10 15:44] LABS: INR 1.2 (0.8-1.4); PROTHROMBIN TIME PATIENT 15.3 SEC (12.2-14.7)
--- NOTE | 2021-05-10 15:44 | Diagnostic Imaging Report ---
PROCEDURE: CT pelvis without contrast. TECHNIQUE: Multiple contiguous axial images were obtained through the pelvis without the use of intravenous contrast. Sagittal and coronal reformations were performed. Auto Exposure Controls were utilized during the CT exam to meet ALARA standards for radiation dose reduction. INDICATION: Falls. Pelvic pain. Bladder incontinence. COMPARISON: 11/13/2019. FINDINGS: No acute fracture or dislocation is seen in the pelvis and bilateral hips. Alignment of the hips is anatomic. Degenerative changes are seen in the bilateral femoral acetabular joints with marginal osteophytes, joint space narrowing, and subchondral sclerosis. No evidence of joint effusion in the hips. The bilateral SI joints demonstrate normal alignment. The pubic symphysis is intact. The included lower lumbar spine demonstrates no evidence of acute fracture. There is grade 1 anterolisthesis of L5 on S1, similar to the prior exam. No focal osseous lesions are seen in the pelvis. The prostate is enlarged measuring 5.3 cm in transverse dimension, similar to the prior exam. The urinary bladder is nondistended. No evidence of bladder mass or bladder calculi. The included loops of bowel are nondistended. No free fluid or free air is seen in the abdomen and pelvis. There is calcified aortic and iliac atherosclerotic plaque without aneurysm. IMPRESSION: 1. No acute fracture or dislocation in the pelvis and bilateral hips. 2. Prostatomegaly. This is similar to the prior exam. 3. 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 Dictated by: Dictated on workstation # [id number]
[2021-05-10 15:53] LABS: BILIRUBIN,TOTAL 1.8 MG/DL (0.1-1.0); CALCIUM 9.2 MG/DL (8.5-10.1); CREATININE SERUM 1.77 MG/DL (0.60-1.30); POTASSIUM 3.9 MMOL/L (3.6-5.0)
[2021-05-10 16:08] LABS: CLARITY,URINE CLEAR; COLOR,URINE YELLOW
[2021-05-10 16:09] LABS: BACTERIA,URINE FEW /HPF; BILIRUBIN,URINE 1+ (NEGATIVE); GLUCOSE, URINE (UA) 3+ (NEGATIVE); KETONES,URINE TRACE (NEGATIVE); LEUKOCYTE ESTERASE ,URINE NEGATIVE (NEGATIVE); NITRITE,URINE NEGATIVE (NEGATIVE); PROTEIN,URINE 1+ (NEGATIVE); SQUAMOUS EPITHELIAL CELL,UR 0-2 /HPF
[2021-05-10 16:17] LABS: ATYPICAL LYMPHOCYTES 4 %; LYMPHOCYTES % (MANUAL) 2 %; MONOCYTES % (MANUAL) 4 %; NEUTROPHILS % (MANUAL) 90 %; RBC MORPH NORMAL
[2021-05-10] MEDS ORDERED: NS IV 1000 ML 1,000 ML IV STA (16:29)
--- NOTE | 2021-05-10 18:45 | Diagnostic Imaging Report ---
EXAMINATION: Chest 1 view HISTORY: Elevated WBC. COMPARISON: 04/03/2019. 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 There is prominence of the central pulmonary vasculature. Hazy opacities are seen in the bilateral lung bases. No pleural effusion or pneumothorax. IMPRESSION: 1. Cardiomegaly with central pulmonary vascular congestion. 2. Hazy opacities in the bilateral lung bases, which may represent edema, infection or atelectasis. Dictated by: Dictated on workstation # [id number]
[2021-05-10] MEDS ORDERED: NS IV 1000 ML 1,000 ML IV SCH (20:00)
[2021-05-10 20:20] VITALS: BP 100/80
== END 2021-05-10 20:24 | disposition short-term general hospital (02) ==
LOC: EDUNIT# 14:05 → ER FS 14:06
DX: N17.9 Acute kidney failure, unspecified (principal); D72.829 Elevated white blood cell count, unspecified; M25.552 Pain in left hip; M62.82 Rhabdomyolysis; I10 Essential (primary) hypertension
CPT/HCPCS: 36415; 70450; 71045; 72125; 72192; 80053; 81000; 83605; 85007; 85027; 85610; 85730; 87040; 87077; 87088; 93005; 93041

== ENCOUNTER 2021-09-14 17:56 | Observation (INO) | payer OTHER ==
[~2021-09-14] VITALS: Ht 182.9 cm; Wt 84.0 kg
[~2021-09-14 17:56] MED LIST changes: +CYCL10TA25 PO; -CYCL10TA9 PO
--- NOTE | 2021-09-14 18:05 | ED General ---
General Stated Complaint: AMS History of Present Illness Date Seen by Provider: Sep 14, 2021 Time Seen by Provider: 18:04 Initial Comments 76 yr M is brought to the ER via EMS for a fall in his house, presumed to have occurred today. He was incontinent and soiled himself while on the floor. EMS found pt to have altered mental status and combative towards EMS. Pt has been more calm in the ER, but is mostly unco-operative with examination and H&P. Pt's neighbor/ friend is with him in the ER and is assisting in giving history. Pt does not drink alcohol or smoke. Pt is moving all his limbs but is unco- operative and does not want to be examined. He answers some questions in very short answers and yes and no, but not all questions. Allergies and Home Medications Allergies Uncoded Allergies: PENICILLIN (Adverse Reaction, Unknown, 12/11/18) SULFA (Adverse Reaction, Unknown, 12/11/18) Patient Home Medication List Home Medication List Reviewed: Yes Ciprofloxacin HCl (Ciprofloxacin HCl) 250 Mg Tablet, 250 MG PO BID Prescribed by: JUSTIN GARCIA on 11/13/19438 Cyclobenzaprine HCl (Cyclobenzaprine HCl) 10 Mg Tablet, 10 MG PO Q8H PRN for SPASMS Prescribed by: TONY DALTON on 06/15/19 185 Hydrocodone/Acetaminophen (Hydrocodone/Acetaminophen 5 MG/325 MG TAB) 1 Each Tablet, 1 TAB PO Q4-6HR Prescribed by: JING CARDONA on 04/04/19 0014 Hydrocodone/Acetaminophen (Hydrocodone/Acetaminophen 5 MG/325 MG TAB) 1 Each Tablet, 1 TAB PO Q6H Prescribed by: LINDSEY MARIN on 07/09/19 1042 Hydrocodone/Acetaminophen (Hydrocodone-Acetamin 5-325 mg) 1 Each Tablet, 0.5-1 EACH PO Q6H Prescribed by: JUSTIN GARCIA on 11/13/19 043 Tramadol HCl (Tramadol HCl) 50 Mg Tablet, 50 MG PO Q6H PRN for PAIN Prescribed by: PRABHA DOLAN on 04/16/192136 Review of Systems Review of Systems Constitutional: malaise, weakness EENTM: no symptoms reported Respiratory: no symptoms reported Cardiovascular: no symptoms reported Gastrointestinal: no symptoms reported Genitourinary: no symptoms reported Musculoskeletal: other (fall) Skin: no symptoms reported Psychiatric/Neurological: Other (confused) Hematologic/Lymphatic: No Symptoms Reported Immunological/Allergic: no symptoms reported Past Cdwaovt-Bgkajg-Ehymqf Hx Immunizations Up To Date First/Initial COVID19 Vaccinat: 02/2021 Second COVID19 Vaccination Clyde: 03/2021 Seasonal Allergies Seasonal Allergies: No Past Medical History Surgeries: Yes (back surgery, heart transplant) Respiratory: No Cardiac: Yes (heart transplant) Hypertension Neurological: No Genitourinary: No Gastrointestinal: No Musculoskeletal: No Endocrine: No HEENT: No Loss of Vision: Left Cancer: No Psychosocial: No Integumentary: No Blood Disorders: No Physical Exam Vital Signs Vital Signs - First Documented 09/14/21 18:55 Temp 35.4 Pulse 99 Resp 18 B/P (MAP) 139/66 (90) Pulse Ox 95 O2 Delivery Room Air Capillary Refill : Height, Weight, BMI Height: 6'2.00" Weight: 230lbs. oz. 104.135313eu; 26.00 BMI Method:Stated General Appearance: No Apparent Distress (UNABLE TO DO A FULL EXAM PT IS REFUSING TO BE EXAMINED BY ME. THE FOLLOWING EXAM PARAMETERS DOCUMENTED ON WHAT I OBSERVED ONLY. HE IS NOT ALLOWING ME TO EXAMINE HIM. ) HEENT: PERRL/EOMI Neck: Full Range of Motion Extremity: Normal Range of Motion Neurologic/Psychiatric: Alert, No Motor/Sensory Deficits Skin: Normal Color Procedures/Interventions Suture Size: 5-0 F5-2 Progress/Results/Core Measures Suspected Sepsis SIRS Temperature: Pulse: Respiratory Rate: Laboratory Tests 09/14/21 18:40: White Blood Count 5.9 Blood Pressure / Mean: Laboratory Tests 09/14/21 18:40: Creatinine 1.33H, INR Comment 1.0, Platelet Count 151, Total Bilirubin 0.6 Results/Orders Lab Results Laboratory Tests Test 09/14/21 18:40 09/14/21 19:35 Range/Units White Blood Count 5.9 4.3-11.0 10^3/uL Red Blood Count 4.85 4.30-5.52 10^6/uL Hemoglobin 12.9 L 13.3-17.7 g/dL Hematocrit 41 40-54 % Mean Corpuscular Volume 84 80-99 fL Mean Corpuscular Hemoglobin 27 25-34 pg Mean Corpuscular Hemoglobin Concent 32 32-36 g/dL Red Cell Distribution Width 15.8 H 10.0-14.5 % Platelet Count 151 130-400 10^3/uL Mean Platelet Volume 9.2 9.0-12.2 fL Immature Granulocyte % (Auto) 0 % Neutrophils (%) (Auto) 86 H 42-75 % Lymphocytes (%) (Auto) 7 L 12-44 % Monocytes (%) (Auto) 5 0-12 % Eosinophils (%) (Auto) 1 0-10 % Basophils (%) (Auto) 1 0-10 % Neutrophils # (Auto) 5.1 1.8-7.8 10^3/uL Lymphocytes # (Auto) 0.4 L 1.0-4.0 10^3/uL Monocytes # (Auto) 0.3 0.0-1.0 10^3/uL Eosinophils # (Auto) 0.0 0.0-0.3 10^3/uL Basophils # (Auto) 0.0 0.0-0.1 10^3/uL Immature Granulocyte # (Auto) 0.0 0.0-0.1 10^3/uL Neutrophils % (Manual) 85 % Lymphocytes % (Manual) 7 % Monocytes % (Manual) 4 % Eosinophils % (Manual) 0 % Basophils % (Manual) 0 % Band Neutrophils 4 % Elliptocytes SLIGHT Prothrombin Time 13.7 12.2-14.7 SEC INR Comment 1.0 0.8-1.4 Activated Partial Thromboplast Time 29 24-35 SEC D-Dimer 0.91 H 0.00-0.49 UG/ML Sodium Level 138 135-145 MMOL/L Potassium Level 3.7 3.6-5.0 MMOL/L Chloride Level 102 98-107 MMOL/L Carbon Dioxide Level 22 21-32 MMOL/L Anion Gap 14 5-14 MMOL/L Blood Urea Nitrogen 14 7-18 MG/DL Creatinine 1.33 H 0.60-1.30 MG/DL Estimat Glomerular Filtration Rate 56 BUN/Creatinine Ratio 11 Glucose Level 118 H 70-105 MG/DL Calcium Level 8.9 8.5-10.1 MG/DL Corrected Calcium 9.0 8.5-10.1 MG/DL Total Bilirubin 0.6 0.1-1.0 MG/DL Aspartate Amino Transf (AST/SGOT) 31 5-34 U/L Alanine Aminotransferase (ALT/SGPT) 10 0-55 U/L Alkaline Phosphatase 105 40-136 U/L Troponin I < 0.30 <0.30 NG/ML Total Protein 7.5 6.4-8.2 GM/DL Albumin 3.9 3.2-4.5 GM/DL Serum Alcohol < 10 <10 MG/DL Urine Color YELLOW Urine Clarity CLEAR Urine pH 6.5 5-9 Urine Specific [place] 1.015 L 1.016-1.022 Urine Protein TRACE H NEGATIVE Urine Glucose (UA) 3+ H NEGATIVE Urine Ketones NEGATIVE NEGATIVE Urine Nitrite NEGATIVE NEGATIVE Urine Bilirubin NEGATIVE NEGATIVE Urine Urobilinogen 0.2 < = 1.0 MG/DL Urine Leukocyte Esterase NEGATIVE NEGATIVE Urine RBC (Auto) TRACE-I H NEGATIVE Urine RBC NONE /HPF Urine WBC RARE /HPF Urine Squamous Epithelial Cells 0-2 /HPF Urine Crystals NONE /LPF Urine Bacteria NEGATIVE /HPF Urine Casts NONE /LPF Urine Mucus NEGATIVE /LPF Urine Culture Indicated NO Urine Opiates Screen NEGATIVE NEGATIVE Urine Oxycodone Screen NEGATIVE NEGATIVE Urine Methadone Screen NEGATIVE NEGATIVE Urine Propoxyphene Screen NEGATIVE NEGATIVE Urine Barbiturates Screen NEGATIVE NEGATIVE Ur Tricyclic Antidepressants Screen POSITIVE H NEGATIVE Urine Phencyclidine Screen NEGATIVE NEGATIVE Urine Amphetamines Screen NEGATIVE NEGATIVE Urine Methamphetamines Screen NEGATIVE NEGATIVE Urine Benzodiazepines Screen NEGATIVE NEGATIVE Urine Cocaine Screen NEGATIVE NEGATIVE Urine Cannabinoids Screen NEGATIVE NEGATIVE My Orders Orders - DINAH JACOBSON MD Ct Head Wo-R/O Stroke (09/14/21 18:17) Cbc With Automated Diff (09/14/21 18:18) Protime With Inr (09/14/21 18:18) Partial Thromboplastin Time (09/14/21 18:18) Comprehensive Metabolic Panel (09/14/21 18:18) Fibrin Degradation Products (09/14/21 18:18) Troponin I Fs (09/14/21 18:18) Ua Culture If Indicated (09/14/21 18:18) Chest 1 View Ap/Pa Only (09/14/21 18:18) Catheter(Urinary) Insert & Ass 03,15 (09/14/21 18:18) Nothing By Mouth (09/14/21 Dinner) Accucheck Stat ONCE (09/14/21 18:18) Ed Iv/Invasive Line Start (09/14/21 18:18) Vital Signs Stroke Patient Q15M (09/14/21 18:18) Intake & Output 06,14,22 (09/14/21 18:18) Monitor-Rhythm Ecg Trace Only (09/14/21 18:18) Dysphagia Screening Tool (09/14/21 18:18) Manual Differential (09/14/21 18:40) Ct Angio Chest W (09/14/21 20:14) Ed Iv/Invasive Line Start (09/14/21 20:17) Ns Iv 1000 Ml (Sodium Chloride 0.9%) (09/14/21 20:30) Iohexol Injection (Omnipaque 350 Mg/Ml 1 (09/14/21 20:30) Received Contrast (Hold Metformin- Contr (09/14/21 20:30) Sodium Chloride Flush (Catheter Flush Sy (09/14/21 20:30) Ns (Ivpb) (Sodium Chloride 0.9% Ivpb Bag (09/14/21 20:30) Furosemide Injection (Lasix Injection) (09/14/21 21:00) Ns Iv 1000 Ml (Sodium Chloride 0.9%) (09/14/21 21:01) Alcohol (09/14/21 21:05) Drug Screen Stat (Urine) (09/14/21 21:05) Ekg Tracing (09/14/21 21:30) Apixaban Tablet (Eliquis Tablet) (09/14/21 21:43) Ed Admission (Communication) (09/14/21 21:49) Medications Given in ED Current Medications Medications Dose Ordered Sig/Mac Route Start Time Stop Time Status Last Admin Dose Admin Iohexol 150 ml ONCE ONCE IV 09/14/21 20:30 09/14/21 20:31 DC 09/14/21 21:01 100 ML Sodium Chloride 10 ml NEEDED PRN IV 09/14/21 20:30 09/14/21 21:01 10 ML Sodium Chloride 100 ml ONCE ONCE IV 09/14/21 20:30 09/14/21 20:31 DC 09/14/21 21:01 100 ML Vital Signs/I&O 09/14/21 18:55 Temp 35.4 Pulse 99 Resp 18 B/P (MAP) 139/66 (90) Pulse Ox 95 O2 Delivery Room Air Capillary Refill : Progress Note : Progress Note 1. AMS: - CT HEAD normal. Pt will need MRI in the morning once transferred to [place] - Labs and urine unremarkable and does not provide a source for pt's mental status. - CXR initially showed some pulmonary edema and Lasix 40mg iv was given - Pt has improved in the ER and is talking and allowed EKG to be done - UDS is positive only for TCA - Pt to be admitted to Obs telemetry in [place] - Discussed with pt's son who agrees with plan. 2. DEHYDRATION/ BHARATHI: - NS IVF, 300 bolused and then at 80/hr - Pt looked much better after getting some fluids - elevated creatinine - otherwise electrolytes normal 3. LEFT ATRIAL APPENDAGE CLOT: ELEVATED D-DIMER: - D-dimer was elevated at 0.91 - Discussed with hospitalist and will give Eliquis 5mg bid as long as pt is willing to swallow it. If not switch to Lovenox ECG Initial ECG Impression Date: Sep 14, 2021 (Pt would not allow EKG to be done when he first came in) Initial ECG Impression Time: 21:36 Initial ECG Rate: 84 Initial ECG Rhythm: Normal Sinus Initial ECG Intervals: QT (Prolonged QT interval) Diagnostic Imaging Diagonstic Imaging: Xray, CT Plain Films/CT/US/NM/MRI: chest, head Comments [place], [place] NAME: EMILEE DAVIS MED REC#: [id number] PT STATUS: REG ER : 1945 PHYSICIAN: DINAH JACOBSON MD ADMIT DATE: 09/14/21/ER FS Signed Date of Exam:09/14/21 CHEST 1 VIEW AP/PA ONLY INDICATION: Altered mental status. Comparison made with prior study from May 10, 2021. FINDINGS: The patient is status post sternotomy. There is enlargement of the cardiac silhouette. While there are chronic interstitial changes in the lungs, the prominence of the interstitial markings does appear to be intervally increased which may reflect a component of some superimposed edema. There is no large effusion or pneumothorax or dense airspace consolidation. IMPRESSION: 1. Enlarged cardiac silhouette with increased prominence of pulmonary interstitial markings. This suggests that there may be mild interstitial edema now superimposed on pre-existing chronic interstitial changes. Dictated by: Dictated on workstation # [id number] Dict: 09/14/211915 Trans: 09/14/211920 [id number] Interpreted by: JAYDEN RICH MD Electronically signed by: JAYDEN RICH MD 09/14/211920 [place] NAME: EMILEE DAVIS [facility] REC#: [id number] PT STATUS: REG ER : 1945 PHYSICIAN: DINAH JACOBSON MD ADMIT DATE: 09/14/21/ER FS Signed Date of Exam:09/14/21 CT HEAD WO-R/O STROKE PROCEDURE: CT head wo r/o stroke. TECHNIQUE: Multiple contiguous axial images were obtained through the brain without the use of intravenous contrast. Auto Exposure Controls were utilized during the CT exam to meet ALARA standards for radiation dose reduction. INDICATION: Altered mental status. COMPARISON: Correlation is made with prior head CT from 05/10/2021. FINDINGS: Ventricular size is stable. 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 There is no sulcal effacement or midline shift. No acute intra-axial or extra-axial hemorrhage is detected. Cisterns are patent. Visualized paranasal sinuses are clear. Periventricular hypodensity consistent with chronic microvascular ischemia is unchanged. IMPRESSION: Stable chronic changes since exam from 05/10/2021. No acute intracranial process is detected. Dictated by: Dictated on workstation # [id number] Dict: 09/14/211906 Trans: 09/14/211938 [id number] Interpreted by: BIANCA WEBB MD Electronically signed by: BIANCA WEBB MD 09/14/211938 NAME: EMILEE DAVIS MED REC#: [id number] PT STATUS: REG ER : 1945 PHYSICIAN: DINAH JACOBSON MD ADMIT DATE: 09/14/21/ER FS Draft Date of Exam:09/14/21 CT ANGIO CHEST W PROCEDURE: CT angiography of the chest with contrast. TECHNIQUE: Multiple contiguous axial images were obtained through the chest after uneventful bolus administration of intravenous contrast. 3D reconstructed CTA MIP acquisitions were also performed. Auto Exposure Controls were utilized during the CT exam to meet ALARA standards for radiation dose reduction. INDICATION: Elevated D-dimer. Shortness of breath. Evaluate for pulmonary embolism. COMPARISON is made with a chest radiograph from earlier same day. FINDINGS: There are no CT angiographic findings of a central pulmonary embolism. The main pulmonary arteries are prominent which may relate to pulmonary arterial hypertension. There is atherosclerotic disease within the aorta without findings of dissection or aneurysm. There is four-chamber cardiomegaly with marked enlargement of the left atrium. There again appears to be a filling defect within the left atrial appendage suggesting clot. This has increased in size compared to the prior exam. There are small mediastinal lymph nodes present. There is a calcified subcarinal lymph node. The lungs demonstrate no findings of pneumonia. There are some mild interstitial changes present. There is no effusion. There is no evidence of pneumothorax. There is no suspicious pulmonary nodule or mass. There is mild pleural thickening along the lateral aspect of the right lung base. The upper abdomen demonstrates no acute process. There are multilevel degenerative changes present throughout the spine without suspicious lytic or blastic lesion or findings of an acute osseous abnormality. IMPRESSION: 1. No CT angiographic evidence of pulmonary embolism. The main pulmonary arteries are prominent which may reflect pulmonary arterial hypertension. 2. Aortic atherosclerosis without dissection or aneurysm. 3. Four-chamber cardiomegaly with marked prominence of the left atrium. There is a filling defect in the left atrial appendage that suggests clot. 4. Apparent chronic pulmonary interstitial changes without findings of new pneumonia or edema. There is no effusion. 5. No pathologic adenopathy. 6. No acute osseous abnormality. Dictated on workstation # [id number] Dict: 09/14/212107 Trans: 09/14/212115 [facility] [id number] Departure Communication (Admissions) Time/Spoke to Admitting Phy: 21:[address] Canela regarding left atrial appendage clot, and will give Eliquis 5mg BID, if pt will not take oral, will switch to Lovenox. Also discussed QT prolongation on EKG, and AMS status with normal head CT. Hospitalist recs to give nightly usual dose of Seroquel, nd admit to Observation. I will obtain cardiology consult request for morning and MRI for morning as well. Impression Primary Impression: Dehydration Additional Impressions: Atrial thrombus AMS (altered mental status) Qualified Codes: R41.0 - Disorientation, unspecified Elevated d-dimer Disposition: 30 STILL A PATIENT Condition: Stable Admissions Decision to Admit Reason: Admit from ER (General) Decision to Admit/Date: Sep 14, 2021 Time/Decision to Admit Time: 20:30 Transfer Transfer Reason: Exceeds level of care Method of Transfer: EMS Departure-Patient Inst. Referrals: MAXIMINO FIELDS MD (PCP/Family) Primary Care Physician DINAH JACOBSON MD Sep 14, 2021 18:05
[2021-09-14 18:57] LABS: BASOPHILS % (AUTO) 1 % (0-10); EOSINOPHILS % (AUTO) 1 % (0-10); HEMATOCRIT 41 % (40-54); HEMOGLOBIN 12.9 g/dL (13.3-17.7); LYMPHOCYTES # (AUTO) 0.4 10^3/uL (1.0-4.0); LYMPHOCYTES % (AUTO) 7 % (12-44); MEAN CORPUSCULAR HEMOGLOBIN 27 pg (25-34); MEAN CORPUSCULAR HGB CONC 32 g/dL (32-36); MEAN CORPUSCULAR VOLUME 84 fL (80-99); MEAN PLATELET VOLUME 9.2 fL (9.0-12.2); MONOCYTES # (AUTO) 0.3 10^3/uL (0.0-1.0); MONOCYTES % (AUTO) 5 % (0-12); NEUTROPHILS # (AUTO) 5.1 10^3/uL (1.8-7.8); NEUTROPHILS % (AUTO) 86 % (42-75); PLATELET COUNT 151 10^3/uL (130-400); WHITE BLOOD COUNT 5.9 10^3/uL (4.3-11.0)
[2021-09-14 19:11] LABS: PROTHROMBIN TIME PATIENT 13.7 SEC (12.2-14.7)
--- NOTE | 2021-09-14 19:11 | Diagnostic Imaging Report ---
PROCEDURE: CT head wo r/o stroke. TECHNIQUE: Multiple contiguous axial images were obtained through the brain without the use of intravenous contrast. Auto Exposure Controls were utilized during the CT exam to meet ALARA standards for radiation dose reduction. INDICATION: Altered mental status. COMPARISON: Correlation is made with prior head CT from 05/10/2021. FINDINGS: Ventricular size is stable. 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 There is no sulcal effacement or midline shift. No acute intra-axial or extra-axial hemorrhage is detected. Cisterns are patent. Visualized paranasal sinuses are clear. Periventricular hypodensity consistent with chronic microvascular ischemia is unchanged. IMPRESSION: Stable chronic changes since exam from 05/10/2021. No acute intracranial process is detected. Dictated by: Dictated on workstation # [id number]
[2021-09-14 19:15] LABS: BAND NEUTROPHILS 4 %; BASOPHILS % (MANUAL) 0 %; EOSINOPHILS % (MANUAL) 0 %; LYMPHOCYTES % (MANUAL) 7 %; MONOCYTES % (MANUAL) 4 %; NEUTROPHILS % (MANUAL) 85 %
[2021-09-14 19:16] LABS: ELLIPT/OVALOCYTES SLIGHT
--- NOTE | 2021-09-14 19:19 | Diagnostic Imaging Report ---
INDICATION: Altered mental status. Comparison made with prior study from May 10, 2021. FINDINGS: The patient is status post sternotomy. There is enlargement of the cardiac silhouette. While there are chronic interstitial changes in the lungs, the prominence of the interstitial markings does appear to be intervally increased which may reflect a component of some superimposed edema. There is no large effusion or pneumothorax or dense airspace consolidation. IMPRESSION: 1. Enlarged cardiac silhouette with increased prominence of pulmonary interstitial markings. This suggests that there may be mild interstitial edema now superimposed on pre-existing chronic interstitial changes. Dictated by: Dictated on workstation # [id number]
[2021-09-14 19:20] LABS: ALANINE AMINOTRANSFERASE 10 U/L (0-55); ALKALINE PHOSPHATASE 105 U/L (40-136); BILIRUBIN,TOTAL 0.6 MG/DL (0.1-1.0); BUN/CREATININE RATIO 11; CALCIUM 8.9 MG/DL (8.5-10.1); CARBON DIOXIDE 22 MMOL/L (21-32); CHLORIDE 102 MMOL/L (98-107); CREATININE SERUM 1.33 MG/DL (0.60-1.30); GFR ESTIMATED 56; GLUCOSE 118 MG/DL (70-105); POTASSIUM 3.7 MMOL/L (3.6-5.0); SODIUM 138 MMOL/L (135-145); TOTAL PROTEIN 7.5 GM/DL (6.4-8.2)
[2021-09-14 19:21] LABS: ALBUMIN 3.9 GM/DL (3.2-4.5)
[2021-09-14 19:29] LABS: FIBRIN DEGRADATION PRODUCTS 0.91 UG/ML (0.00-0.49)
[2021-09-14 19:44] LABS: BILIRUBIN,URINE NEGATIVE (NEGATIVE); CLARITY,URINE CLEAR; COLOR,URINE YELLOW; GLUCOSE, URINE (UA) 3+ (NEGATIVE); KETONES,URINE NEGATIVE (NEGATIVE); LEUKOCYTE ESTERASE ,URINE NEGATIVE (NEGATIVE); NITRITE,URINE NEGATIVE (NEGATIVE); PH,URINE 6.5 (5-9); PROTEIN,URINE TRACE (NEGATIVE)
[2021-09-14 19:52] LABS: BACTERIA,URINE NEGATIVE /HPF; SQUAMOUS EPITHELIAL CELL,UR 0-2 /HPF; WBC,URINE RARE /HPF
[2021-09-14] MEDS ORDERED: CATHETER FLUSH 10 ML SYR IV PRN (20:30)
[2021-09-14] MEDS ORDERED: NS IV 1000 ML 1,000 ML IV SCH (20:30)
[2021-09-14] MEDS ORDERED: HOLD METFORMIN - RECEIVED CONTRAST 20 ML VIAL IV SCH (20:30)
[2021-09-14] MEDS ORDERED: NS 100 ML (IVPB) BAG IV ONE (20:30)
[2021-09-14] MEDS ORDERED: IOHEXOL 350 MG/ML 150 ML (OMNIPAQUE 350) VIAL IV ONE (20:30)
[2021-09-14] MEDS ORDERED: FUROSEMIDE 40 MG/4 ML INJ (LASIX) IVP STA (21:00)
[2021-09-14] MEDS ORDERED: NS IV 1000 ML 1,000 ML IV STA (21:01)
--- NOTE | 2021-09-14 21:17 | Diagnostic Imaging Report ---
PROCEDURE: CT angiography of the chest with contrast. TECHNIQUE: Multiple contiguous axial images were obtained through the chest after uneventful bolus administration of intravenous contrast. 3D reconstructed CTA MIP acquisitions were also performed. Auto Exposure Controls were utilized during the CT exam to meet ALARA standards for radiation dose reduction. INDICATION: Elevated D-dimer. Shortness of breath. Evaluate for pulmonary embolism. COMPARISON is made with a chest radiograph from earlier same day. FINDINGS: There are no CT angiographic findings of a central pulmonary embolism. The main pulmonary arteries are prominent which may relate to pulmonary arterial hypertension. There is atherosclerotic disease within the aorta without findings of dissection or aneurysm. There is four-chamber cardiomegaly with marked enlargement of the left atrium. There again appears to be a filling defect within the left atrial appendage suggesting clot. This has increased in size compared to the prior exam. There are small mediastinal lymph nodes present. There is a calcified subcarinal lymph node. The lungs demonstrate no findings of pneumonia. There are some mild interstitial changes present. There is no effusion. There is no evidence of pneumothorax. There is no suspicious pulmonary nodule or mass. There is mild pleural thickening along the lateral aspect of the right lung base. The upper abdomen demonstrates no acute process. There are multilevel degenerative changes present throughout the spine without suspicious lytic or blastic lesion or findings of an acute osseous abnormality. IMPRESSION: 1. No CT angiographic evidence of pulmonary embolism. The main pulmonary arteries are prominent which may reflect pulmonary arterial hypertension. 2. Aortic atherosclerosis without dissection or aneurysm. 3. Four-chamber cardiomegaly with marked prominence of the left atrium. There is a filling defect in the left atrial appendage that suggests clot. 4. Apparent chronic pulmonary interstitial changes without findings of new pneumonia or edema. There is no effusion. 5. No pathologic adenopathy. 6. No acute osseous abnormality. Dictated by: Dictated on workstation # [id number]
[2021-09-14 21:28] LABS: AMPHETAMINE SCREEN, URINE NEGATIVE (NEGATIVE); BARBITURATE SCREEN URINE NEGATIVE (NEGATIVE); BENZODIAZEPINES SCREEN URINE NEGATIVE (NEGATIVE); CANNABINOID SCREEN, URINE NEGATIVE (NEGATIVE); COCAINE SCREEN URINE NEGATIVE (NEGATIVE); METHADONE STAT NEGATIVE (NEGATIVE); METHAMPHETAMINE SCREEN URINE S NEGATIVE (NEGATIVE); OPIATE SCREEN URINE NEGATIVE (NEGATIVE); OXYCODONE STAT NEGATIVE (NEGATIVE); PROPOXYPHENE STAT NEGATIVE (NEGATIVE); TRICYCLIC ANTIDEPRESSANTS SCRE POSITIVE (NEGATIVE)
[2021-09-14] MEDS ORDERED: APIXABAN 5 MG (ELIQUIS) TABLET PO STA (21:43)
[2021-09-15] VITALS (7 sets, daily range): BP systolic 117–150; BP diastolic 63–74
[2021-09-15] MEDS: NS IV 1000 ML 1,000 ML IV SCH ×2 (01:05→11:37)
[2021-09-15] MEDS ORDERED: RT-ALBUTEROL SULF 2.5 MG/3 ML PRE-MIX VIAL INH PRN (01:15)
[2021-09-15 05:53] LABS: BASOPHILS # (AUTO) 0.1 10^3/uL (0.0-0.1); BASOPHILS % (AUTO) 1 % (0-10); EOSINOPHILS # (AUTO) 0.2 10^3/uL (0.0-0.3); EOSINOPHILS % (AUTO) 3 % (0-10); HEMATOCRIT 41 % (40-54); LYMPHOCYTES # (AUTO) 0.9 10^3/uL (1.0-4.0); LYMPHOCYTES % (AUTO) 13 % (12-44); MEAN CORPUSCULAR HEMOGLOBIN 26 pg (25-34); MEAN CORPUSCULAR HGB CONC 32 g/dL (32-36); MEAN CORPUSCULAR VOLUME 84 fL (80-99); MEAN PLATELET VOLUME 9.3 fL (9.0-12.2); MONOCYTES # (AUTO) 0.7 10^3/uL (0.0-1.0); MONOCYTES % (AUTO) 11 % (0-12); NEUTROPHILS # (AUTO) 5.1 10^3/uL (1.8-7.8); NEUTROPHILS % (AUTO) 72 % (42-75); PLATELET COUNT 168 10^3/uL (130-400)
[2021-09-15 06:12] LABS: POTASSIUM 3.3 MMOL/L (3.6-5.0)
[2021-09-15 06:13] LABS: CALCIUM 8.8 MG/DL (8.5-10.1)
[2021-09-15 06:17] LABS: CREATININE SERUM 1.23 MG/DL (0.60-1.30)
[2021-09-15 06:40] LABS: TSH (THYROID ANALYZER) 0.98 UIU/ML (0.35-4.94)
--- NOTE | 2021-09-15 08:44 | Consultation-Cardiology ---
HPI-Cardiology Cardiology Consultation: Date of Consultation 09/15/21 Time Seen by a Provider: 08:45 Date of Admission 09-14-21 Attending Physician Gurdeep Canela MD Admitting Physician Ann Marie Hernández MD Consulting Physician Solo Laughlin MD HPI: Chief Complaint: AMS Mr. Davis is a 76 yr old male admitted to 405 from the [facility] ED. He has no family at the bedside. He is oriented to self only and unable to provide any information. He provides nonsensical answers to questions. Per [facility] ED note he was found in his home by a neighbor on the floor, soiled and confused. EMS reports he was combative at the time of their arrival. Review of Systems-Cardiology Review of Systems Other comments Unable to obtain d/t confusion ATD-Csksod-Ylewjm Hx Patient Social History 2nd Hand Smoke Exposure: No Have you traveled recently?: No Alcohol Use?: Yes Pt feels they are or have been: No Past Medical History PMH As described under Assessment. Family Medical History Family Medical History: Unable to obtain d/t confusion Allergies and Home Medications Allergies Uncoded Allergies: PENICILLIN (Adverse Reaction, Unknown, 12/11/18) SULFA (Adverse Reaction, Unknown, 12/11/18) Patient Home Medication List Ciprofloxacin HCl (Ciprofloxacin HCl) 250 Mg Tablet, 250 MG PO BID Prescribed by: JUSTIN GARCIA on 11/13/19 043 Cyclobenzaprine HCl (Cyclobenzaprine HCl) 10 Mg Tablet, 10 MG PO Q8H PRN for SPASMS Prescribed by: TONY DALTON on 06/15/19 1852 Hydrocodone/Acetaminophen (Hydrocodone/Acetaminophen 5 MG/325 MG TAB) 1 Each Tablet, 1 TAB PO Q4-6HR Prescribed by: JING CARDONA on 04/04/19 0014 Hydrocodone/Acetaminophen (Hydrocodone/Acetaminophen 5 MG/325 MG TAB) 1 Each Tablet, 1 TAB PO Q6H Prescribed by: LINDSEY MARIN on 07/09/19 1042 Hydrocodone/Acetaminophen (Hydrocodone-Acetamin 5-325 mg) 1 Each Tablet, 0.5-1 EACH PO Q6H Prescribed by: JUSTIN GARCIA on 11/13/19 0439 Tramadol HCl (Tramadol HCl) 50 Mg Tablet, 50 MG PO Q6H PRN for PAIN Prescribed by: PRABHA DOLAN on 04/16/19 0414 Physical Exam-Cardiology Physical Exam Vital Signs/I&O 09/15/21 09/16/21 09/16/21 09/16/21 22:53 00:17 04:04 07:11 Temp 37.5 37.2 37.2 Pulse 76 86 77 Resp 16 16 16 B/P (MAP) 121/69 (86) 98/60 (73) 126/67 (86) Pulse Ox 94 96 93 O2 Delivery Room Air Room Air Room Air Room Air 09/16/21 00:00 Intake Total 300 ml Output Total 300 ml Balance 0 ml Capillary Refill : Less Than 3 Seconds Constitutional: other (Oriented to self only) HEENT: PERRL, hearing is well preserved, oral hygience is good Neck: No carotid bruit; carotid pulses are 2 + bilaterally Respiratory: No accessory muscle use, No respiratory distress; chest expansion is symmetric, chest is bilaterally symmetric, lungs clear to auscultation Cardiovascular: regular rate-rhythm; No JVD; S1 and S2, systolic murmur Gastrointestinal: No tender; soft, round; No guarding; audible bowel sounds Extremities: no lower extremity edema bilateral Neurologic/Psychiatric: No oriented x 3 (oriented to self only); grossly intact (moves all extremities) Skin: No rash on exposed areas, No ulcerations on exposed areas Data Review Labs Laboratory Tests 09/16/21 06:20: Sodium Level 137, Potassium Level 3.7, Chloride Level 107, Carbon Dioxide Level 21, Anion Gap 9, Blood Urea Nitrogen 17, Creatinine 1.25, Estimat Glomerular Filtration Rate 60, BUN/Creatinine Ratio 14, Glucose Level 81, Calcium Level 8.7, Magnesium Level 1.7, Triglycerides Level 140, Cholesterol Level 140, LDL Cholesterol Direct 74, VLDL Cholesterol 28, HDL Cholesterol 40 Radiology NAME: [facility] REC#: [id number] PT STATUS: REG ER : 1945 PHYSICIAN: DINAH JACOBSON MD ADMIT DATE: 09/14/21/ER FS Signed Date of Exam:09/14/21 CT HEAD WO-R/O STROKE PROCEDURE: CT head wo r/o stroke. TECHNIQUE: Multiple contiguous axial images were obtained through the brain without the use of intravenous contrast. Auto Exposure Controls were utilized during the CT exam to meet ALARA standards for radiation dose reduction. INDICATION: Altered mental status. COMPARISON: Correlation is made with prior head CT from 05/10/2021. FINDINGS: Ventricular size is stable. 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 There is no sulcal effacement or midline shift. No acute intra-axial or extra-axial hemorrhage is detected. Cisterns are patent. Visualized paranasal sinuses are clear. Periventricular hypodensity consistent with chronic microvascular ischemia is unchanged. IMPRESSION: Stable chronic changes since exam from 05/10/2021. No acute intracranial process is detected. Dictated by: Dictated on workstation # [id number] Dict: 09/14/211906 Trans: 09/14/211938 [id number] Interpreted by: BIANCA WEBB MD Electronically signed by: BIANCA WEBB MD 09/14/211938 NAME: EMILEE [facility] REC#: [id number] PT STATUS: REG ER : 1945 PHYSICIAN: DINAH JACOBSON MD ADMIT DATE: 09/14/21/ER FS Signed Date of Exam:09/14/21 CHEST 1 VIEW AP/PA ONLY INDICATION: Altered mental status. Comparison made with prior study from May 10, 2021. FINDINGS: The patient is status post sternotomy. There is enlargement of the cardiac silhouette. While there are chronic interstitial changes in the lungs, the prominence of the interstitial markings does appear to be intervally increased which may reflect a component of some superimposed edema. There is no large effusion or pneumothorax or dense airspace consolidation. IMPRESSION: 1. Enlarged cardiac silhouette with increased prominence of pulmonary interstitial markings. This suggests that there may be mild interstitial edema now superimposed on pre-existing chronic interstitial changes. Dictated by: Dictated on workstation # [id number] Dict: 09/14/211915 Trans: 09/14/211920 [id number] Interpreted by: JAYDEN RICH MD Electronically signed by: JAYDEN RICH MD 09/14/211920 NAME: EMILEE [facility] REC#: [id number] PT STATUS: REG ER : 1945 PHYSICIAN: DINAH JACOBSON MD ADMIT DATE: 09/14/21/ER FS Signed Date of Exam:09/14/21 CT ANGIO CHEST W PROCEDURE: CT angiography of the chest with contrast. TECHNIQUE: Multiple contiguous axial images were obtained through the chest after uneventful bolus administration of intravenous contrast. 3D reconstructed CTA MIP acquisitions were also performed. Auto Exposure Controls were utilized during the CT exam to meet ALARA standards for radiation dose reduction. INDICATION: Elevated D-dimer. Shortness of breath. Evaluate for pulmonary embolism. COMPARISON is made with a chest radiograph from earlier same day. FINDINGS: There are no CT angiographic findings of a central pulmonary embolism. The main pulmonary arteries are prominent which may relate to pulmonary arterial hypertension. There is atherosclerotic disease within the aorta without findings of dissection or aneurysm. There is four-chamber cardiomegaly with marked enlargement of the left atrium. There again appears to be a filling defect within the left atrial appendage suggesting clot. This has increased in size compared to the prior exam. There are small mediastinal lymph nodes present. There is a calcified subcarinal lymph node. The lungs demonstrate no findings of pneumonia. There are some mild interstitial changes present. There is no effusion. There is no evidence of pneumothorax. There is no suspicious pulmonary nodule or mass. There is mild pleural thickening along the lateral aspect of the right lung base. The upper abdomen demonstrates no acute process. There are multilevel degenerative changes present throughout the spine without suspicious lytic or blastic lesion or findings of an acute osseous abnormality. IMPRESSION: 1. No CT angiographic evidence of pulmonary embolism. The main pulmonary arteries are prominent which may reflect pulmonary arterial hypertension. 2. Aortic atherosclerosis without dissection or aneurysm. 3. Four-chamber cardiomegaly with marked prominence of the left atrium. There is a filling defect in the left atrial appendage that suggests clot. 4. Apparent chronic pulmonary interstitial changes without findings of new pneumonia or edema. There is no effusion. 5. No pathologic adenopathy. 6. No acute osseous abnormality. Dictated by: Dictated on workstation # [id number] Dict: 09/14/212107 Trans: 09/14/212126 [facility] [id number] Interpreted by: JAYDEN RICH MD Electronically signed by: JAYDEN RICH MD 09/14/212126 ECG Impression ECG Initial ECG Rhythm: Normal Sinus A/P-Cardiology Assessment/Admission Diagnosis AMS of undetermined etiology - management per medical services ?LA thrombus although unchanged from previous CT's as noted below - CTA of the chest from 11/2018 and 10/2019 have shown LA atrial appendage suggesting clot as seen on CTA of the chest on this admission - Four-chamber cardiomegaly with marked prominence of the left atrium. There is a filling defect in the left atrial appendage that suggests clot. Per CTA of the chest on 09-14-21 - Eliquis initiated in [facility] ED on 09-14-21 ?Heart Transplant in 2005 (per ED note of 2018) - pt does have mid-line scar and was able to report it was from heart surgery, but otherwise can not provide any information Discussion and Recomendations CTA of the chest on 09-14-21 shows cardiomegaly and possible atrial clot, although this is unchanged from previous CT's of 2018, 2019 - Echocardiogram today - Continue OAC with Eliquis - Continue tele to eval for arrhythmia AMS - undetermined etiology - management per medical services Monitor lab closely - replace electrolytes as indicated Further recs will be based on his hospital course We would like to thank medical services for this consult CALISTA SLAUGHTER Sep 15, 2021 08:44
[2021-09-15] MEDS: APIXABAN 5 MG (ELIQUIS) TABLET PO SCH ×2 (09:00→21:09)
--- NOTE | 2021-09-15 12:29 | Consultation-Cardiology ---
HPI-Cardiology Cardiology Consultation: Date of Consultation 09/15/21 Time Seen by a Provider: 09:15 Date of Admission Attending Physician Gurdeep Canela MD Admitting Physician Ann Marie Hernández MD Consulting Physician LANCE CRAWLEY MD, MA, FACP, FACC, FSCAI, CCDS HPI: Chief Complaint: Mental status change Mr. Lopez is a 76 yr old male admitted to 405 from the [facility] ED. He has no family at the bedside. He is oriented to self only and unable to provide any information. He provides nonsensical answers to questions. Per [facility] ED note he was found in his home by a neighbor on the floor, soiled and confused. EMS reports he was combative at the time of their arrival. Review of Systems-Cardiology Review of Systems Constitutional: other (pt unable to provide a review of systems) XTW-Vfavhw-Frkgvw Hx Patient Social History 2nd Hand Smoke Exposure: No Have you traveled recently?: No Alcohol Use?: Yes Pt feels they are or have been: No Past Medical History PMH As described under Assessment. Family Medical History Family Medical History: Unable to obtain d/t confusion Allergies and Home Medications Allergies Uncoded Allergies: PENICILLIN (Adverse Reaction, Unknown, 12/11/18) SULFA (Adverse Reaction, Unknown, 12/11/18) Patient Home Medication List Home Medication List Reviewed: Yes Ciprofloxacin HCl (Ciprofloxacin HCl) 250 Mg Tablet, 250 MG PO BID Prescribed by: JUSTIN GARCIA on 11/13/19438 Cyclobenzaprine HCl (Cyclobenzaprine HCl) 10 Mg Tablet, 10 MG PO Q8H PRN for SPASMS Prescribed by: TNOY DALTON on 06/15/19 1852 Hydrocodone/Acetaminophen (Hydrocodone/Acetaminophen 5 MG/325 MG TAB) 1 Each Tablet, 1 TAB PO Q4-6HR Prescribed by: JING CARDONA on 04/04/19 0014 Hydrocodone/Acetaminophen (Hydrocodone/Acetaminophen 5 MG/325 MG TAB) 1 Each Tablet, 1 TAB PO Q6H Prescribed by: LINDSEY MARIN on 07/09/19 1042 Hydrocodone/Acetaminophen (Hydrocodone-Acetamin 5-325 mg) 1 Each Tablet, 0.5-1 EACH PO Q6H Prescribed by: JUSTIN GARCIA on 11/13/19 0439 Tramadol HCl (Tramadol HCl) 50 Mg Tablet, 50 MG PO Q6H PRN for PAIN Prescribed by: PRABHA DOLAN on 04/16/19 Physical Exam-Cardiology Physical Exam Vital Signs/I&O 09/15/21 09/15/21 09/15/21 09/15/21 00:56 00:57 01:12 04:22 Temp 37.3 35.4 37.7 Pulse 95 99 87 89 Resp 18 18 B/P (MAP) 123/63 (83) 117/69 (85) Pulse Ox 93 95 97 O2 Delivery Room Air Room Air FiO2 21 09/15/21 09/15/21 09/15/21 09/15/21 07:00 08:00 08:00 12:14 Temp 37.2 37.4 Pulse 89 81 80 Resp 16 18 B/P (MAP) 122/72 (89) 150/73 (98) Pulse Ox 94 94 97 O2 Delivery Room Air Room Air Room Air 09/15/21 00:00 Intake Total 300 ml Output Total 1350 ml Balance -1050 ml Capillary Refill : Less Than 3 Seconds Constitutional: other (Oriented to self only) HEENT: PERRL, hearing is well preserved, oral hygience is good Neck: No carotid bruit; carotid pulses are 2 + bilaterally Respiratory: No accessory muscle use, No respiratory distress; chest expansion is symmetric, chest is bilaterally symmetric, lungs clear to auscultation Cardiovascular: regular rate-rhythm; No JVD; S1 and S2, systolic murmur Gastrointestinal: No tender; soft, round; No guarding; audible bowel sounds Extremities: no lower extremity edema bilateral Neurologic/Psychiatric: No oriented x 3 (oriented to self only); grossly intact (moves all extremities) Skin: No rash on exposed areas, No ulcerations on exposed areas Data Review Labs Laboratory Tests 09/14/21 18:40: White Blood Count 5.9, Red Blood Count 4.85, Hemoglobin 12.9L, Hematocrit 41, Mean Corpuscular Volume 84, Mean Corpuscular Hemoglobin 27, Mean Corpuscular Hemoglobin Concent 32, Red Cell Distribution Width 15.8H, Platelet Count 151, Mean Platelet Volume 9.2, Immature Granulocyte % (Auto) 0, Neutrophils (%) (Auto) 86H, Lymphocytes (%) (Auto) 7L, Monocytes (%) (Auto) 5, Eosinophils (%) (Auto) 1, Basophils (%) (Auto) 1, Neutrophils # (Auto) 5.1, Lymphocytes # (Auto) 0.4L, Monocytes # (Auto) 0.3, Eosinophils # (Auto) 0.0, Basophils # (Auto) 0.0, Immature Granulocyte # (Auto) 0.0, Neutrophils % (Manual) 85, Lymphocytes % (Manual) 7, Monocytes % (Manual) 4, Eosinophils % (Manual) 0, Basophils % (Manual) 0, Band Neutrophils 4, Elliptocytes SLIGHT, Prothrombin Time 13.7, INR Comment 1.0, Activated Partial Thromboplast Time 29, D-Dimer 0.91H, Sodium Level 138, Potassium Level 3.7, Chloride Level 102, Carbon Dioxide Level 22, Anion Gap 14, Blood Urea Nitrogen 14, Creatinine 1.33H, Estimat Glomerular Filtration Rate 56, BUN/Creatinine Ratio 11, Glucose Level 118H, Calcium Level 8.9, Corrected Calcium 9.0, Total Bilirubin 0.6, Aspartate Amino Transf (AST/SGOT) 31, Alanine Aminotransferase (ALT/SGPT) 10, Alkaline Phosphatase 105, Troponin I < 0.30, Total Protein 7.5, Albumin 3.9, Serum Alcohol < 10 09/14/21 19:35: Urine Color YELLOW, Urine Clarity CLEAR, Urine pH 6.5, Urine Specific [place] 1.015L, Urine Protein TRACEH, Urine Glucose (UA) 3+H, Urine Ketones NEGATIVE, Urine Nitrite NEGATIVE, Urine Bilirubin NEGATIVE, Urine Urobilinogen 0.2, Urine Leukocyte Esterase NEGATIVE, Urine RBC (Auto) TRACE-IH, Urine RBC NONE, Urine WBC RARE, Urine Squamous Epithelial Cells 0-2, Urine Crystals NONE, Urine Bacteria NEGATIVE, Urine Casts NONE, Urine Mucus NEGATIVE, Urine Culture Indicated NO, Urine Opiates Screen NEGATIVE, Urine Oxycodone Screen NEGATIVE, Urine Methadone Screen NEGATIVE, Urine Propoxyphene Screen NEGATIVE, Urine Barbiturates Screen NEGATIVE, Ur Tricyclic Antidepressants Screen POSITIVEH, Uri ne Phencyclidine Screen NEGATIVE, Urine Amphetamines Screen NEGATIVE, Urine Methamphetamines Screen NEGATIVE, Urine Benzodiazepines Screen NEGATIVE, Urine Cocaine Screen NEGATIVE, Urine Cannabinoids Screen NEGATIVE 09/15/21 05:22: White Blood Count 7.0, Red Blood Count 4.92, Hemoglobin 13.0L, Hematocrit 41, Mean Corpuscular Volume 84, Mean Corpuscular Hemoglobin 26, Mean Corpuscular Hemoglobin Concent 32, Red Cell Distribution Width 15.7H, Platelet Count 168, Mean Platelet Volume 9.3, Immature Granulocyte % (Auto) 1, Neutrophils (%) (Auto) 72, Lymphocytes (%) (Auto) 13, Monocytes (%) (Auto) 11, Eosinophils (%) (Auto) 3, Basophils (%) (Auto) 1, Neutrophils # (Auto) 5.1, Lymphocytes # (Auto) 0.9L, Monocytes # (Auto) 0.7, Eosinophils # (Auto) 0.2, Basophils # (Auto) 0.1, Immature Granulocyte # (Auto) 0.0, Sodium Level 137, Potassium Level 3.3L, Chloride Level 105, Carbon Dioxide Level 20L, Anion Gap 12, Blood Urea Nitrogen 14, Creatinine 1.23, Estimat Glomerular Filtration Rate 61, BUN/Creatinine Ratio 11, Glucose Level 83, Calcium Level 8.8, TSH Bond Testing 0.98 A/P-Cardiology Assessment/Admission Diagnosis AMS of undetermined etiology - management is by the Medical/Hospitalist Services ?LA thrombus although unchanged from previous CT's as noted below - CTA of the chest from 11/2018 and 10/2019 have shown LA atrial appendage suggesting clot as seen on CTA of the chest on this admission - Four-chamber cardiomegaly with marked prominence of the left atrium. There is a filling defect in the left atrial appendage that suggests clot. Per CTA of the chest on 09-14-21 - Eliquis initiated in [facility] ED on 09-14-21 ?Heart Transplant in 2005 (per ED note of 2019) - pt does have mid-line scar and was able to report it was from heart surgery, but otherwise can not provide any information Discussion and Recomendations CTA of the chest on 09-14-21 shows cardiomegaly and possible atrial clot, although this is unchanged from previous CT's of 2018, 2019 - Echocardiogram today - Continue OAC with Eliquis - Continue tele to eval for arrhythmia AMS - undetermined etiology - management per medical services Monitor lab closely - replace electrolytes as indicated Further recs will be based on his hospital course We would like to thank Medical services for this consult LANCE CRAWLEY MD FACP FAC CCDS Sep 15, 2021 12:29
[2021-09-15] MEDS: LORazepam 0.5 MG (ATIVAN) TABLET PO PRN (15:55)
--- NOTE | 2021-09-15 18:26 | History & Physical-Hospitalist ---
History of Present Illness HPI/Chief Complaint Champ Serrano is a 76 year old male with PMH heart transplant 2005 who presented after a fall. He was found on the floor. It is unclear how long he had been on the ground. He is unable to provide any history. He gets agitated with questions. It is unclear if he does not want to answer or if he is unable. He is oriented to person. He denies pain. He denies breathing trouble. He is unable to tell me about any medical history of medications that he takes. Source: patient Exam Limitations: clinical condition Date Seen 09/15/21 Time Seen by a Provider: 09:40 Attending Physician Cindi Mendez MD PCP Ann Marie Hernández MD Referring Physician Date of Admission Sep 15, 2021 at 00:05 Home Medications & Allergies Home Medications Reviewed patient Home Medication Reconciliation performed by pharmacy medication reconciliations photo technician and/or nursing. Patients Allergies have been reviewed. Allergies Allergies Uncoded Allergies PENICILLIN ( Adverse Reaction, Unknown, 12/11/18) SULFA ( Adverse Reaction, Unknown, 12/11/18) Past Ijmqbxw-Cyvwck-Avxawb Hx Patient Social History Tobacco Use?: No Use of E-Cig and/or Vaping dev: No Substance use?: No Alcohol Use?: Yes Alcohol Frequency: Once in a while Pt feels they are or have been: No Immunizations Up To Date First/Initial COVID19 Vaccinat: 02/2021 Second COVID19 Vaccination [place]: 03/2021 Seasonal Allergies Seasonal Allergies: No Current Status Advance Directives: Yes Communicates: Verbally Primary Language: Surinamese Preferred Spoken Language: Surinamese Is interpretation needed?: No Past Medical History Hypertension Loss of Vision: Left Blood Disorders: No Family Medical History No Pertinent Family Hx Review of Systems Constitutional: see HPI Physical Exam Physical Exam Vital Signs Vital Signs - First Documented 09/14/21 09/15/21 18:55 00:57 Temp 35.4 Pulse 99 Resp 18 B/P (MAP) 139/66 (90) Pulse Ox 95 O2 Delivery Room Air FiO2 21 Capillary Refill : Less Than 3 Seconds Height, Weight, BMI Height: 6'2.00" Weight: 230lbs. oz. 104.846974ms; 25.11 BMI Method:Stated General Appearance: No Apparent Distress, WD/WN HEENT: PERRL/EOMI, Pharynx Normal Neck: Normal Inspection, Supple Respiratory: Lungs Clear, No Respiratory Distress Cardiovascular: Regular Rate, Rhythm, No Edema, No Murmur Gastrointestinal: Normal Bowel Sounds, Non Tender, Soft Extremity: Normal Inspection, Non Tender, No Pedal Edema Neurologic/Psychiatric: Alert, No Motor/Sensory Deficits, Disoriented, Other (follows commands, oriented to self, agitated) Skin: Normal Color, Warm/Dry Results Results/Procedures Labs Laboratory Tests 09/14/21 18:40 09/15/21 05:22 Patient resulted labs reviewed. Imaging: Reviewed Imaging Report Assessment/Plan Admission Diagnosis Possible stroke Admission Status: Observation Assessment and Plan Possible stroke Possible atrial thrombus Word finding difficulty CT with evidence of acute stroke, possible atrial thrombus CTA unremarkable, no significant carotid stenosis MRI refused PT/OT Aspirin and Lipitor Echo ordered Cardiology consulted Eliquis HTN Begin Amlodipine History of heart transplant Unknown medication regimen Await med rec DVT prophylaxis: already receiving therapeutic anticoagualtion Diagnosis/Problems Diagnosis/Problems (1) Word finding difficulty Status: Acute (2) Agitation Status: Acute (3) Metabolic encephalopathy Status: Acute (4) HTN (hypertension) Status: Acute (5) History of heart transplant Status: Chronic CINDI MENDEZ MD Sep 15, 2021 18:25
[2021-09-15] MEDS ORDERED: amLODIPine 5 MG (NORVASC) TAB PO NR (18:30)
[2021-09-16 00:17] VITALS: BP 121/69
[2021-09-16] MEDS: NS IV 1000 ML 1,000 ML IV SCH ×2 (02:10→09:04)
[2021-09-16 04:04] VITALS: BP 98/60
[2021-09-16] MEDS ORDERED: MAGNESIUM 1 GM/100 ML IVPB 100 ML IV SCH (06:00)
[2021-09-16] MEDS ORDERED: KCL 20 MEQ TAB (K-DUR) PO SCH (06:00)
[2021-09-16] MEDS ORDERED: POTASSIUM CL 10MEQ/50ML IVPB 50 ML IV SCH (06:00)
[2021-09-16 06:42] LABS: POTASSIUM 3.7 MMOL/L (3.6-5.0)
[2021-09-16 06:43] LABS: CALCIUM 8.7 MG/DL (8.5-10.1)
[2021-09-16 06:48] LABS: CREATININE SERUM 1.25 MG/DL (0.60-1.30)
[2021-09-16 06:50] LABS: MAGNESIUM 1.7 MG/DL (1.6-2.4)
[2021-09-16 07:11] VITALS: BP 126/67
[2021-09-16] MEDS: MAGNESIUM 1 GM/100 ML IVPB 100 ML IV SCH ×2 (08:54→10:42)
[2021-09-16] MEDS: APIXABAN 5 MG (ELIQUIS) TABLET PO SCH (08:54)
[2021-09-16] MEDS ORDERED: amLODIPine 5 MG (NORVASC) TAB PO SCH (09:00)
[2021-09-16] MEDS ORDERED: ASPIRIN 81 MG CHEW (CHILDREN'S ASA) PO SCH (09:00)
--- NOTE | 2021-09-16 10:15 | Progress Note - Cardiology ---
Cardiology SOAP Progress Note Subjective: Lying in bed More appropriate and co-operative today Denies any c/o CP or SOB States he is in the hospital because he fell at home after going to the bathroom Objective: I&O/Vital Signs 09/15/21 09/16/21 09/16/21 09/16/21 22:53 00:17 04:04 07:11 Temp 37.5 37.2 37.2 Pulse 76 86 77 Resp 16 16 16 B/P (MAP) 121/69 (86) 98/60 (73) 126/67 (86) Pulse Ox 94 96 93 O2 Delivery Room Air Room Air Room Air Room Air 09/16/21 00:00 Intake Total 300 ml Output Total 300 ml Balance 0 ml Weight (Pounds): 230 Weight (Calculated Kilograms): 104.396184 Constitutional: other (Oriented to self only) Respiratory: No accessory muscle use, No respiratory distress; chest expansion is symmetric, chest is bilaterally symmetric, lungs clear to auscultation Cardiovascular: regular rate-rhythm; No JVD; S1 and S2, systolic murmur Gastrointestional: No tender; soft, round; No guarding; audible bowel sounds Extremities: no lower extremity edema bilateral Neurologic/Psychiatric: oriented x 3 (oriented to place and self), grossly intact (moves all extremities) Skin: No rash on exposed areas, No ulcerations on exposed areas Results/Procedures: Labs Laboratory Tests 09/16/21 06:20: Sodium Level 137, Potassium Level 3.7, Chloride Level 107, Carbon Dioxide Level 21, Anion Gap 9, Blood Urea Nitrogen 17, Creatinine 1.25, Estimat Glomerular Filtration Rate 60, BUN/Creatinine Ratio 14, Glucose Level 81, Calcium Level 8.7, Magnesium Level 1.7, Triglycerides Level 140, Cholesterol Level 140, LDL Cholesterol Direct 74, VLDL Cholesterol 28, HDL Cholesterol 40 Laboratory Tests 09/14/21 18:40 09/15/21 05:22 09/16/21 06:20 A/P: Assessment: AMS of undetermined etiology - management is by the Medical/Hospitalist Services - improved ?LA thrombus although unchanged from previous CT's as noted below - CTA of the chest from 11/2018 and 10/2019 have shown LA atrial appendage suggesting clot as seen on CTA of the chest on this admission - Four-chamber cardiomegaly with marked prominence of the left atrium. There is a filling defect in the left atrial appendage that suggests clot. Per CTA of the chest on 09-14-21 - Eliquis initiated in [facility] ED on 09-14-21 Pt reports Heart Transplant in 2006 in [place] - He states [facility] Plan: CTA of the chest on 09-14-21 shows cardiomegaly and possible atrial clot, although this is unchanged from previous CT's of 2018, 2019 - Echocardiogram today - Continue OAC with Eliquis - Continue tele to eval for arrhythmia AMS - undetermined etiology - management per medical services - improving Monitor lab closely - replace electrolytes as indicated CALISTA SLAUGHTER Sep 16, 2021 10:15
[2021-09-16] MEDS: LORazepam 0.5 MG (ATIVAN) TABLET PO PRN (10:39)
[2021-09-16] MEDS ORDERED: GADOTERATE 0.5 MMOL/ML (CLARISCAN) 20 ML VIAL IV ONE (11:30)
[2021-09-16] MEDS ORDERED: MELA3TAB39 PO (11:31)
[2021-09-16] MEDS ORDERED: LOSA50TA63 PO (11:31)
[2021-09-16] MEDS ORDERED: ATOR80TA76 PO (11:31)
[2021-09-16] MEDS ORDERED: LATA2.5D19 OU (11:31)
[2021-09-16] MEDS ORDERED: POTA10TA37 PO (11:31)
[2021-09-16] MEDS ORDERED: FURO20TA4 PO (11:31)
[2021-09-16] MEDS ORDERED: CALC-140 PO (11:31)
[2021-09-16] MEDS ORDERED: PANT40TA52 PO (11:31)
[2021-09-16] MEDS ORDERED: EMPA25TA PO (11:31)
[2021-09-16] MEDS ORDERED: CLOP75TA28 PO (11:31)
[2021-09-16] MEDS ORDERED: CHOL200074 PO (11:31)
[2021-09-16] MEDS ORDERED: QUET300T19 PO (11:31)
[2021-09-16] MEDS ORDERED: SERT-414 PO (11:31)
[2021-09-16 11:37] VITALS: BP 114/67
[2021-09-16] MEDS ORDERED: TACR0.5C6 PO (11:38)
[2021-09-16] MEDS ORDERED: SIRO0.5T3 PO (11:38)
[2021-09-16] MEDS ORDERED: SPIR25TA5 PO (11:38)
--- NOTE | 2021-09-16 12:02 | Diagnostic Imaging Report ---
CLINICAL INDICATION: Patient having confusion and possible stroke. EXAM: MRI of the brain performed without IV contrast. Sequences include sagittal T1, axial T2, axial flair, axial gradient echo, DWI, ADC map, and axial T1. COMPARISON: Head CT without contrast dated 09/14/2021. CT scan of the head and cervical spine without contrast dated 09/10/2020. FINDINGS: Stable rlzae-pj-llimzagc-sized chronic infarct involving the right occipital lobe and confluent high T2 signal involving the right parietal lobe region. There is chronic small amount of amorphous low density involving the infarct area as well, likely related to remote hemosiderin. There is a focal area of low gradient echo signal involving the left parietal lobe, likely related to microhemorrhage. There are multiple focal and patchy areas of high T2 signal white matter changes involving both cerebral hemispheres and periventricular regions and right cerebellar hemisphere related to chronic small vessel ischemic disease and leukoaraiosis. There is brain parenchymal volume loss. There is no hydrocephalus. Basal cisterns are unremarkable. The [place] vascular structures show no gross abnormality as visualized. The extracranial soft tissues, skull, and orbits are unremarkable. There is minimal mucosal thickening involving the ethmoid sinus and both maxillary sinuses. There is small amount of fluid involving the right mastoid air cells. IMPRESSION: 1: Stable CT scan of the brain with no evidence of acute intracranial process. 2: There is chronic infarct involving the right occipital lobe. 3: There is chronic small vessel ischemic disease and leukoaraiosis. Dictated by: Dictated on workstation # [id number]
[2021-09-16] MEDS ORDERED: PANT20TA18 PO (13:08)
--- NOTE | 2021-09-16 14:03 | Occupational Therapy Eval ---
OT Evaluation-General/PLF Medical Diagnosis Admission Date Sep 15, 2021 at 00:05 Medical Diagnosis: AMS, atrial thrombus Onset Date: Sep 15, 2021 Therapy Diagnosis Therapy Diagnosis: n/a Height/Weight Height (Feet): 6 Height (Inches): 2.00 Weight (Pounds): 230 Precautions Precautions/Isolations: Fall Prevention, Standard Precautions Referral Physician: Adam Referral Reason: Evaluation/Treatment Medical History Additional Medical History 2006 heart transplant, HTN Current History presents after fall, found down on floor but unsure how long pt was on floor Social History Home: Single Level Current Living Status: Alone ADL-Prior Level of Function SCALE: Activities may be completed with or without assistive devices. 9-Flamlghhfo-ksxuizw completes the activity by him/herself with no assistance from a helper. 5-Set-up or Clean-up Assistance-helper sets up or cleans up; patient completes activity. [place] assists only prior to or following the activity. 4-Supervision or Touching Assistance-helper provides verbal cues and/or touching/steadying and/or contact guard assistance as patient completes activity. Assistance may be provided throughout the activity or intermittently. 3-Partial/Moderate Assistance-helper does LESS THAN HALF the effort. Spencer lifts, holds or supports trunk or limbs, but provides less than half the effort. 2-Substantial/Maximal Assistance-helper does MORE THAN HALF the effort. Spencer lifts or holds trunk or limbs and provides more than half the effort. 4-Atdtlzhsp-gbgobd does ALL the effort. Patient does none of the effort to complete the activity. Or, the assistance of 2 or more helpers is required for the patient to complete the activity. If activity was not attempted, code reason: 7-Patient Refused. 9-Not Applicable-not attempted and the patient did not perform the activity before the current illness, exacerbation or injury. 10-Not Attempted due to Environmental Limitations-(lack of equipment, weather restraints, etc.). 88-Not Attempted due to Medical Conditions or Safety Concerns. ADL PLOF Comments Pt indicates IND with ADLs and functional mobility at PLOF, no AD. Pt did not provide information about bathroom set up Self Care: Independent Functional Cognition: Unknown OT Current Status Subjective Pt in bed, live sitter present. Pt reports he is going to go home soon. Pt required cues for safety throughout session, and he appeared slightly confused. Mental Status/Objective Patient Orientation: Person, Confused Attachments: IV Current Hand Dominance: Right Upper Extremity ROM WFL, BUE shoulder flexion to approx 160 degrees ADL-Treatment Eating (QC): 6 On/Off Footwear (QC): 6 (IND seated EOB) Toileting Hygiene (QC): 6 (IND per pt and sitter report.) Other Treatments Pt in bed, transferred supine to sit EOB. Pt wanted to show this therapist how good he is doing, standing from EOB without warning, attempting to hug this therapist. OT redirected pt to return to EOB for assessment. Pt able to doff socks independently, again stood without warning stating "I'm steady" in an attempt to show this therapist how well he is doing. OT again redirected pt to return EOB to don gripper socks for safety. Pt able to don gripper socks independently. Pt stood from EOB, taking several steps up towards HOB, then returned to sit EOB. Pt declined returning supine, preferring to remain at EOB. Post tx, pt seated EOB, sitter present, all needs met. Education OT Patient Education: Correct positioning, Modified ADL techniques, Progress toward Goal/Update tx plan, Purpose of tx/functional activities, Rehab process, Safety issues Teaching Recipient: Patient Teaching Methods: Discussion Response to Teaching: Verbalize Understanding OT [facility] Goals [facility] Goals 1=Demonstrate adherence to instructed precautions during ADL tasks. 2=Patient will verbalize/demonstrate understanding of assistive devices/modifications for ADL. 3=Patient will improve strength/tolerance for activity to enable patient to perform ADL's. OT Education/Plan Problem List/Assessment Assessment: No Skilled OT Needs ID'd No skilled OT services indicated at this time, as pt is independent with ADLs and at PLOF. Discharge Recommendations Plan/Recommendations: Discharge/Goals Met Treatment Plan/Plan of Care Patient would benefit from OT for education, treatment and training to promote independence in ADL's, mobility, safety and/or upper extremity function for ADL's. Plan of Care: ADL Retraining, Functional Mobility Treatment Duration: Sep 16, 2021 Frequency: 1 time per week (eval only) Estimated Hrs Per Day: .25 hour per day Rehab Potential: Fair Time/GCodes Start Time: 13:40 Stop Time: 13:50 Total Time Billed (hr/min): 10 Billed Treatment Time 1, KARL ANGLIN OT Sep 16, 2021 14:03
--- NOTE | 2021-09-16 14:51 | Physical Therapy Evaluation ---
PT Evaluation-General Medical Diagnosis Admission Date Sep 15, 2021 at 00:05 Medical Diagnosis: AMS, atrial thrombus Onset Date: Sep 15, 2021 Therapy Diagnosis Therapy Diagnosis: weakness, debility Height/Weight Height (Feet): 6 Height (Inches): 2.00 Weight (Pounds): 230 Precautions Precautions/Isolations: Fall Prevention, Standard Precautions Referral Physician: Adam Reason for Referral: Evaluation/Treatment Medical History Pertinent Medical History: HTN Additional Medical History Heart transplant Current History Patient presented to ED via EMS after a fall at home and a change in mental state. Reviewed History: Yes Social History Home: Single Level Current Living Status: Alone Patient reports he has friends and neighbors that check on him Prior Prior Level of Function SCALE: Activities may be completed with or without assistive devices. 9-Wxuvwxswcn-rcjatrv completes the activity by him/herself with no assistance from a helper. 5-Set-up or Clean-up Assistance-helper sets up or cleans up; patient completes activity. [place] assists only prior to or following the activity. 4-Supervision or Touching Assistance-helper provides verbal cues and/or touch ing/steadying and/or contact guard assistance as patient completes activity. Assistance may be provided throughout the activity or intermittently. 3-Partial/Moderate Assistance-helper does LESS THAN HALF the effort. [place] lifts, holds or supports trunk or limbs, but provides less than half the effort. 2-Substantial/Maximal Assistance-helper does MORE THAN HALF the effort. [place] lifts or holds trunk or limbs and provides more than half the effort. 7-Wycotjgma-umfemh does ALL the effort. Patient does none of the effort to complete the activity. Or, the assistance of 2 or more helpers is required for the patient to complete the activity. If activity was not attempted, code reason: 7-Patient Refused. 9-Not Applicable-not attempted and the patient did not perform the activity before the current illness, exacerbation or injury. 10-Not Attempted due to Environmental Limitations-(lack of equipment, weather restraints, etc.). 88-Not Attempted due to Medical Conditions or Safety Concerns. Bed Mobility: 6 Transfers (B,C,W/C): 6 Gait: 6 Indoor Mobility (Ambulation): Independent Prior Devices Use: None PT Evaluation-Current Subjective Patient presents laying in bed and agrees to go on a walk with therapy. Objective Patient Orientation: Person, Confused ROM/Strength ROM Lower Extremities WFL Strength Lower Extremities 4/5 strength bilaterally grossly Integumentary/Posture Bowel Incontinence: No Bladder Incontinence: No Neuromuscular (Tone, Coordination, Reflexes) grossly intact Sensory Vision: Functional Hearing: Functional Hand Dominance: Right Transfers Lying to Sitting/Side of Bed(Q: 6 Sit to Stand (QC): 6 Gait Does the Patient Walk?: Yes Mode of Locomotion: Walk Anticipated Mode of Locomotion: Walk Walk 10 feet (QC): 6 Walk 50 ft with 2 Turns(QC): 6 Walk 150 ft (QC): 6 Distance: 400' Gait Assistive Device: None Comments/Gait Description Patient ambulated independently for 400' without an AD. Balance Sitting Static: Normal Sitting Dynamic: Normal Standing Static: Fair Standing Dynamic: Fair Assessment/Needs Patient ambulated and transferred independently. Patient is staggers at times while ambulating but self corrects. Patient is independent for all ambulation and transfers and is being d/c from therapy services at this time. Rehab Potential: Fair PT Plan Treatment/Plan Treatment Plan: Discontinue PT, goals met Treatment Duration: Sep 16, 2021 Frequency: 1 time per week Estimated Hrs Per Day: .25 hour per day Time/GCodes Time In: 1429 Time Out: 1440 Total Billed Treatment Time: 11 Total Billed Treatment 1 Visit EVLow 11 min ROSI LARA PT Sep 16, 2021 14:51
[2021-09-16 15:12] VITALS: BP 126/72
--- NOTE | 2021-09-16 16:59 | Discharge Summary ---
Discharge Summary Hospital Course Problems/Dx: (1) Word finding difficulty Status: Acute (2) Agitation Status: Acute (3) Metabolic encephalopathy Status: Acute (4) HTN (hypertension) Status: Acute (5) History of heart transplant Status: Chronic Hospital Course Date of Admission: Sep 15, 2021 at 00:05 Admission Diagnosis : Stroke like symptoms Family Physician/Provider: Ann Marie Hernández MD Date of Discharge: 09/16/21 Discharge Diagnosis: Possible transient ischemic attack Hospital Course: Champ Serrano is a 76 year old male who presented with word finding difficulty and was admitted with stroke like symptoms. He underwent CT and MRI which showed no acute intracranial abnormalities. He was continued on plavix and lipitor. His symptoms resolved. He was discharged home in stable, improved condition. Labs and Pending Lab Test: Laboratory Tests 09/16/21 06:20: Sodium Level 137, Potassium Level 3.7, Chloride Level 107, Carbon Dioxide Level 21, Anion Gap 9, Blood Urea Nitrogen 17, Creatinine 1.25, Estimat Glomerular Filtration Rate 60, BUN/Creatinine Ratio 14, Glucose Level 81, Calcium Level 8.7, Magnesium Level 1.7, Triglycerides Level 140, Cholesterol Level 140, LDL Cholesterol Direct 74, VLDL Cholesterol 28, HDL Cholesterol 40 Home Meds Active Reported Pantoprazole Sodium 20 Mg Tablet.dr 20 Mg PO DAILY Tacrolimus 0.5 Mg Capsule 1 Mg PO BID TAKES 2 (0.5MG) CAPS Spironolactone 25 Mg Tablet 12.5 Mg PO DAILY TAKES OF A 25MG TAB Sirolimus 0.5 Mg Tablet 1.5 Mg PO DAILY TAKES 3 (0.5MG) TABS Sertraline HCl 100 Mg Tablet 200 Mg PO DAILY TAKES 2 (100MG) TABS Quetiapine Fumarate 300 Mg Tablet 300 Mg PO HS Potassium Chloride 10 Meq Tab.er.prt 20 Meq PO DAILY TAKES 2 (10MEQ) TABS Melatonin 3 Mg Tablet 3 Mg PO HS Losartan Potassium 50 Mg Tablet 25 Mg PO DAILY TAKES OF A 50MG TAB Xalatan (Latanoprost) 2.5 Ml Drops 1 Drop OU HS Furosemide 20 Mg Tablet 20 Mg PO DAILY Jardiance (Empagliflozin) 25 Mg Tablet 12.5 Mg PO DAILY TAKES OF A 25MG Clopidogrel (Clopidogrel Bisulfate) 75 Mg Tablet 75 Mg PO DAILY Vitamin D3 (Cholecalciferol (Vitamin D3)) 50 Mcg Capsule 50 Mcg PO DAILY Calcium + Vitamin D Tablet (Calcium Carbonate/Vitamin D3) 1 Each Tablet 1 Each PO TID Atorvastatin Calcium 80 Mg Tablet 80 Mg PO HS Assessment/Pt Instructions See instructions Discharge Planning: <30 minutes discharge planning Discharge Instructions Discharge Diet: Low Sodium Diet Activity as Tolerated: Yes Discharge Physical Examination Vital Signs Vital Signs Date Time Temp Pulse Resp B/P (MAP) Pulse Ox O2 Delivery O2 Flow Rate FiO2 09/16/21 15:12 36.8 84 20 126/72 (90) 95 Room Air 09/15/21 00:57 21 General Appearance: No Apparent Distress, WD/WN Respiratory: Lungs Clear, Normal Breath Sounds, No Respiratory Distress Cardiovascular: Regular Rate, Rhythm, No Murmur Gastrointestinal: Normal Bowel Sounds, Non Tender, Soft Extremity: Normal Inspection, No Pedal Edema Skin: Normal Color, Warm/Dry Neurologic/Psychiatric: Alert, Oriented x3, No Motor/Sensory Deficits, Normal Mood/Affect Allergies: Uncoded Allergies: PENICILLIN (Adverse Reaction, Unknown, 12/11/18) SULFA (Adverse Reaction, Unknown, 12/11/18) Discharge Summary Date of Admission Sep 15, 2021 at 00:05 Date of Discharge Discharge Date: Sep 16, 2021 Discharge Time: 16:57 Admission Diagnosis Possible stroke Discharge Diagnosis TIA (1) TIA (transient ischemic attack) Status: Acute (2) Word finding difficulty Status: Acute (3) Agitation Status: Acute (4) Metabolic encephalopathy Status: Acute (5) HTN (hypertension) Status: Acute (6) History of heart transplant Status: Chronic (7) History of CVA (cerebrovascular accident) Status: Chronic CINDI MENDEZ MD Sep 16, 2021 16:57
--- NOTE | 2021-09-16 17:05 | Progress Note - Cardiology ---
Cardiology SOAP Progress Note Subjective: Does not report cp or palp or syncope or shortness of breath or n/v/d Objective: I&O/Vital Signs 09/16/21 09/16/21 09/16/21 07:11 11:37 15:12 Temp 37.2 37.2 36.8 Pulse 77 93 84 Resp 16 20 20 B/P (MAP) 126/67 (86) 114/67 (83) 126/72 (90) Pulse Ox 93 95 95 O2 Delivery Room Air Room Air Room Air 09/16/21 00:00 Intake Total 300 ml Output Total 300 ml Balance 0 ml Weight (Pounds): 230 Weight (Calculated Kilograms): 104.510569 Constitutional: other (Oriented to self only) Respiratory: No accessory muscle use, No respiratory distress; chest expansion is symmetric, chest is bilaterally symmetric, lungs clear to auscultation Cardiovascular: regular rate-rhythm; No JVD; S1 and S2, systolic murmur Gastrointestional: No tender; soft, round; No guarding; audible bowel sounds Extremities: no lower extremity edema bilateral Neurologic/Psychiatric: oriented x 3 (oriented to place and self), grossly intact (moves all extremities) Skin: No rash on exposed areas, No ulcerations on exposed areas Results/Procedures: Labs Laboratory Tests 09/16/21 06:20: Sodium Level 137, Potassium Level 3.7, Chloride Level 107, Carbon Dioxide Level 21, Anion Gap 9, Blood Urea Nitrogen 17, Creatinine 1.25, Estimat Glomerular Filtration Rate 60, BUN/Creatinine Ratio 14, Glucose Level 81, Calcium Level 8.7, Magnesium Level 1.7, Triglycerides Level 140, Cholesterol Level 140, LDL Cholesterol Direct 74, VLDL Cholesterol 28, HDL Cholesterol 40 Laboratory Tests 09/14/21 18:40 09/15/21 05:22 09/16/21 06:20 A/P: Assessment: AMS of undetermined etiology - management is by the Medical/Hospitalist Services - improved ?LA thrombus although unchanged from previous CT's as noted below - CTA of the chest from 11/2018 and 10/2019 have shown LA atrial appendage suggesting clot as seen on CTA of the chest of 09-14-21 (see below) - CTA of the chest on 09-14-21: Four-chamber cardiomegaly with marked prominence of the left atrium. There is a filling defect in the left atrial appendage that suggests clot - Eliquis initiated in [facility] on 09-14-21 Pt reports Heart Transplant in 2005 in [place] - He states [facility] - Echo on 09/15/21: LVEF 50-55%, mod to severe biatrial enlargement, mild to mod TR, mod impairment RV systolic function, PASP 40-45 mmHg Plan: Continue OAC Continue tele Monitor lab closely Replace electrolytes as indicated LANCE CRAWLEY MD FACP [facility] Sep 16, 2021 17:05
[2021-09-16] MEDS ORDERED: LATANOPROST 0.005% (XALATAN) OPHTH SOLN 2.5 ML OU SCH (21:00)
[2021-09-16] MEDS ORDERED: TACROLIMUS 0.5 MG (PROGRAF) CAP NON-FORMULARY PO SCH (21:00)
[2021-09-16] MEDS ORDERED: MELATONIN 3 MG TABLET PO SCH (21:00)
[2021-09-17] MEDS ORDERED: SIROLIMUS PO SCH (09:00)
[2021-09-17] MEDS ORDERED: SPIRONOLACTONE 25 MG (ALDACTONE) TAB PO SCH (09:00)
[2021-09-17] MEDS ORDERED: FUROSEMIDE 20 MG (LASIX) TAB PO SCH (09:00)
[2021-09-17] MEDS ORDERED: PANTOPRAZOLE 40 MG (PROTONIX) TAB PO SCH (09:00)
[2021-09-17] MEDS ORDERED: SERTRALINE 100 MG (ZOLOFT) TAB PO SCH (09:00)
[2021-09-17] MEDS ORDERED: CLOPIDOGREL 75 MG (PLAVIX) TABLET PO SCH (09:00)
[2021-09-17] MEDS ORDERED: LOSARTAN 50 MG (COZAAR) TAB PO SCH (09:00)
== END 2021-09-16 16:58 | disposition home or self-care (01) ==
LOC: ER FS 17:56 → EDUNIT# 17:56 → 4TH 09-15 00:05
PROVIDERS: ADMIT Internal Medicine; ATTEND Internal Medicine
DX: G45.9 Transient cerebral ischemic attack, unspecified (principal); R41.82 Altered mental status, unspecified; G93.41 Metabolic encephalopathy; R45.1 Restlessness and agitation; Z94.1 Heart transplant status; Z79.899 Other long term (current) drug therapy; Z86.73 Personal history of transient ischemic attack (TIA), and cerebral infarction without residual deficits; I07.1 Rheumatic tricuspid insufficiency; I11.9 Hypertensive heart disease without heart failure; W19.XXXA Unspecified fall, initial encounter; R79.1 Abnormal coagulation profile
CPT/HCPCS: 36415; 70450; 70553; 71045; 71275; 80048; 80053; 80061; 80306; 80320; 81000; 83735; 84443; 84484; 85007; 85025; 85027; 85379; 85610; 85730; 93005; 93041; 93306; Q9967

== ENCOUNTER 2021-10-05 14:30 | Emergency (ER) | payer OTHER ==
[~2021-10-05 14:30] MED LIST changes: +ATOR80TA76 PO; +CALC-140 PO; +CHOL200074 PO; +CLOP75TA28 PO; +EMPA25TA PO; +FURO20TA4 PO; +LATA2.5D19 OU; +LOSA50TA63 PO; +MELA3TAB39 PO; +PANT20TA18 PO; +PANT40TA52 PO; +POTA10TA37 PO; +QUET300T19 PO; +SERT-414 PO; +SIRO0.5T3 PO; +SPIR25TA5 PO; +TACR0.5C6 PO
[2021-10-05] MEDS ORDERED: TETANUS,DIPTH,PERTUSS P/F (BOOSTRIX) 0.5 ML VIAL IM ONE (14:45)
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
[2021-10-05] MEDS ORDERED: NS IV 1000 ML 1,000 ML ONE (14:53)
[2021-10-05 14:57] VITALS: BP 80/59
[2021-10-05] MEDS ORDERED: NOREPINEPHRINE 8 MG/250 ML 250 ML IV ONE (14:57)
[2021-10-05] MEDS ORDERED: NS IV 1000 ML 1,000 ML IV STA (14:57)
[2021-10-05] MEDS ORDERED: NOREPINEPHRINE 8 MG/250 ML 250 ML IV STA (14:57)
[2021-10-05 15:00] LABS: BASOPHILS # (AUTO) 0.1 10^3/uL (0.0-0.1); BASOPHILS % (AUTO) 1 % (0-10); EOSINOPHILS # (AUTO) 0.3 10^3/uL (0.0-0.3); EOSINOPHILS % (AUTO) 3 % (0-10); HEMATOCRIT 38 % (40-54); HEMOGLOBIN 11.7 g/dL (13.3-17.7); LYMPHOCYTES # (AUTO) 2.3 10^3/uL (1.0-4.0); LYMPHOCYTES % (AUTO) 26 % (12-44); MEAN CORPUSCULAR HEMOGLOBIN 27 pg (25-34); MEAN CORPUSCULAR HGB CONC 31 g/dL (32-36); MEAN CORPUSCULAR VOLUME 86 fL (80-99); MEAN PLATELET VOLUME 9.3 fL (9.0-12.2); MONOCYTES # (AUTO) 0.6 10^3/uL (0.0-1.0); MONOCYTES % (AUTO) 7 % (0-12); NEUTROPHILS # (AUTO) 5.5 10^3/uL (1.8-7.8); NEUTROPHILS % (AUTO) 61 % (42-75); PLATELET COUNT 245 10^3/uL (130-400)
[2021-10-05] MEDS ORDERED: KETAMINE HCL 100 MG/ML 5 ML VIAL ONE (15:07)
[2021-10-05] MEDS ORDERED: KETAMINE HCL 100 MG/ML 5 ML VIAL IV STA (15:07)
[2021-10-05 15:09] LABS: BILIRUBIN,URINE NEGATIVE (NEGATIVE); COLOR,URINE YELLOW; GLUCOSE, URINE (UA) 3+ (NEGATIVE); KETONES,URINE NEGATIVE (NEGATIVE); LEUKOCYTE ESTERASE ,URINE NEGATIVE (NEGATIVE); NITRITE,URINE NEGATIVE (NEGATIVE); PROTEIN,URINE 1+ (NEGATIVE)
[2021-10-05 15:12] LABS: ABG PCO2 35 MMHG (35-45); ABG PH 7.26 (7.37-7.43); ABG PO2 408 MMHG (79-93)
[2021-10-05 15:14] LABS: ABG BASE EXCESS -10.5 MMOL/L (-2.5-2.5); ABG OXYGEN SATURATION 100 % (94-100); ABG TCO2 16.8 MMOL/L (21.0-31.0)
[2021-10-05] MEDS ORDERED: NS IV 500 ML 500 ML ONE (15:14)
[2021-10-05 15:15] LABS: INSPIRED O2 12 O2 FLOW RATE 100%; PATIENT TEMP 36.1; VENTILATOR YES
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
[2021-10-05 15:21] LABS: WBC,URINE 0-2 /HPF
[2021-10-05 15:22] LABS: AMORPHOUS SEDIMENT,UR MOD AMOR URATES /LPF; BACTERIA,URINE NEGATIVE /HPF; CLARITY,URINE CLOUDY; HYALINE CASTS, URINE 0-2 /LPF; RENAL EPITHELIAL CELLS,URINE 0-2 /HPF; SQUAMOUS EPITHELIAL CELL,UR RARE /HPF
[2021-10-05 15:23] LABS: URINE OTHER FEW SPERMATOZOA /HPF
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
[2021-10-05 15:24] LABS: INR 1.1 (0.8-1.4); PROTHROMBIN TIME PATIENT 14.7 SEC (12.2-14.7)
[2021-10-05 15:27] LABS: AMPHETAMINE SCREEN, URINE NEGATIVE (NEGATIVE); BARBITURATE SCREEN URINE NEGATIVE (NEGATIVE); BENZODIAZEPINES SCREEN URINE NEGATIVE (NEGATIVE); CANNABINOID SCREEN, URINE NEGATIVE (NEGATIVE); COCAINE SCREEN URINE NEGATIVE (NEGATIVE); METHADONE STAT NEGATIVE (NEGATIVE); METHAMPHETAMINE SCREEN URINE S NEGATIVE (NEGATIVE); OPIATE SCREEN URINE NEGATIVE (NEGATIVE); OXYCODONE STAT NEGATIVE (NEGATIVE); PROPOXYPHENE STAT NEGATIVE (NEGATIVE); TRICYCLIC ANTIDEPRESSANTS SCRE POSITIVE (NEGATIVE)
[2021-10-05 15:42] LABS: CHLORIDE 101 MMOL/L (98-107); POTASSIUM 3.6 MMOL/L (3.6-5.0); SODIUM 138 MMOL/L (135-145)
[2021-10-05 15:43] LABS: ALANINE AMINOTRANSFERASE 9 U/L (0-55); ALBUMIN 3.3 GM/DL (3.2-4.5); ALKALINE PHOSPHATASE 89 U/L (40-136); BILIRUBIN,TOTAL 0.4 MG/DL (0.1-1.0); BUN/CREATININE RATIO 16; CARBON DIOXIDE 18 MMOL/L (21-32); CREATININE SERUM 1.64 MG/DL (0.60-1.30); GFR ESTIMATED 43; GLUCOSE 211 MG/DL (70-105); MAGNESIUM 1.8 MG/DL (1.6-2.4); TOTAL PROTEIN 6.7 GM/DL (6.4-8.2)
== END 2021-10-05 15:25 | disposition short-term general hospital (02) ==
LOC: EDUNIT# 14:32 → ER FS 14:34
DX: S01.01XA Laceration without foreign body of scalp, initial encounter (principal); S10.93XA Contusion of unspecified part of neck, initial encounter; S60.512A Abrasion of left hand, initial encounter; S60.511A Abrasion of right hand, initial encounter; S80.812A Abrasion, left lower leg, initial encounter; S80.811A Abrasion, right lower leg, initial encounter; I21.3 ST elevation (STEMI) myocardial infarction of unspecified site; V23.0XXA Motorcycle driver injured in collision with car, pick-up truck or van in nontraffic accident, initial encounter
CPT/HCPCS: 36415; 51702; 71045; 72170; 80053; 80306; 81000; 82805; 83735; 83874; 83880; 84484; 85025; 85610; 85730; 93041; G0480; 80320; 93005